=== PATIENT | male | born 1935 | race Caucasian/White ===

== ENCOUNTER → 2016-04-30 | Outpatient (CLI) | payer OTHER, BC ==
[~2016-04-30] MED LIST: ACET-1256 PO; ACET-1311 PO; ANT25 PO; ASPI-435 PO; CARB25TA16 PO; CHOL1000 PO; CHOL100010 PO; CPR500 PO; CYAN100048 PO; DOCU-94 PO; DUTA1CAP3 PO; ENOX40IN SQ; FERRTAB18 PO; FLM4 PO; FLR/1 PO; FLR1 PO; IBUP-103 PO; IRON SUPPLEMENT PO; LPT/20 PO; LSN5 PO; MOML PO; MULT-845 PEG; OMEP10CA2 PO; OMEP20TA PO; PANT1TAB48 PO; POLY335019 PO; SENN-61 PO; SNM/25100 PO; SPRIN/30 INH; TIOTCAP INH; UMEC1INH INH
[2016-05-03 14:26] LABS: ALBUMIN 4.2 G/DL (3.8-4.8)
== END | disposition home or self-care (01) ==
LOC: C.LAB 14:56
PROVIDERS: ATTEND Psychiatry & Neurology Neurology
DX: G62.9 Polyneuropathy, unspecified (principal)

== ENCOUNTER 2016-07-07 16:33 | Inpatient (IN) | payer OTHER, BC ==
[~2016-07-07] VITALS: Ht 177.8 cm; Wt 93.0 kg
[~2016-07-07 16:33] MED LIST changes: -ACET-1256 PO; -CARB25TA16 PO; -CHOL1000 PO; -CPR500 PO; -DUTA1CAP3 PO; -ENOX40IN SQ; -FLR/1 PO; -IBUP-103 PO; -LPT/20 PO; -LSN5 PO; -MOML PO; -MULT-845 PEG; -OMEP20TA PO; -PANT1TAB48 PO; -POLY335019 PO; -SNM/25100 PO; -SPRIN/30 INH; -UMEC1INH INH
--- NOTE | 2016-07-07 17:06 | EMERGENCY ROOM VISIT NOTE ---
History Report prepared by [place]: Shira Orozco Under the Supervision of: Dr. Yovanny Hidalgo D.O. First contact with patient: 16:54 Chief Complaint: WEAKNESS Stated Complaint: BREATHING DIFFICULTY/SHAKES Nursing Triage Summary: Patient arrived via EMS from home. Patient states was at home and was having increasing weakness with SOB from an illness that started a few days ago. Patient denies chest pain and N/V/D. History of Present Illness The patient is an 80 year old male who presents to the Emergency Room with complaints of worsening breathing difficulty. He is accompanied by family and was brought to the ED via EMS. The patient's family reports they found him "yelling hello? hello?" around 1500 this afternoon and states he "seemed out of it" and "could not move on his own". His daughter states he suffers from chronic vertigo and has become increasingly weak recently. His son states he seemed fine around 1200 today when he ate lunch. His family denies any recent loss of consciousness or head injuries. The patient denies any recent chest pain , nausea or vomiting. His daughter thinks he "feels warm" but is not sure if he is running a fever. She reports she had the flu last week but has finished her course of antibiotics. The patient denies any recent cough or cold symptoms. 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 A total of 10 systems reviewed and were otherwise negative. Past Medical & Surgical Medical Problems: (1) Altered mental status (2) BPH (benign prostatic hyperplasia) (3) Bronchitis (4) Cough with hemoptysis (5) Heart disease (6) HTN (hypertension) Family History Diabetes mellitus Hypertension Social History Smoking Status: Former Smoker Alcohol Use: none Drug Use: none Marital Status: Housing Status: lives with family Occupation Status: retired Current/Historical Medications Scheduled Aspirin (Aspirin 81), 81 MG PO QAM Cholecalciferol (Vitamin D3), 1 TAB PO DAILY Cyanocobalamin (Vitamin B-12), 1,000 MCG PO DAILY Docusate Sodium (Colace), 100 MG PO DAILY Dutasteride (Dutasteride), 1 TAB PO DAILY Iron-Vitamin C (Vitron-C), 1 TAB PO DAILY Omeprazole (Omeprazole), 1 TAB PO DAILY Senna (Senokot), 8.6 MG PO DAILY Tamsulosin HCl (Tamsulosin HCl), 0.4 MG PO DAILY Tiotropium [place] (Spiriva Handihaler), 1 CAP INH DAILY Scheduled PRN Acetaminophen (Tylenol), 325 MG PO BID PRN for Pain Allergies Coded Allergies: No Known Allergies (Unverified , 07/07/16) Physical Exam Vital Signs Date Time Temp Pulse Resp B/P Pulse Ox O2 Delivery O2 Flow Rate FiO2 07/07/16 19:31 80 20 125/66 97 Nasal Cannula 2.0 07/07/16 18:39 84 21 135/78 98 Room Air 07/07/16 17:39 89 22 95 Room Air 07/07/16 17:00 96 07/07/16 16:47 37.1 101 16 159/86 92 Room Air 07/07/16 16:47 97 Nasal Cannula 2.0 Physical Exam GENERAL: Patient is listless, but non-anxious appearing, falls asleep easily. EYES: The conjunctivae are clear. Mild ptosis of right eye, PERRL, EOMI. EARS, NOSE, MOUTH AND THROAT: The nose is without any evidence of any deformity. Mucous membranes are moist tongue is midline NECK: The neck is nontender and supple. RESPIRATORY: Lung sounds diminished at both bases, no tachypnea or conversational dyspnea noted. CARDIOVASCULAR: Regular rate and rhythm noted to auscultation, systolic murmur appreciated. GASTROINTESTINAL: The abdomen is soft. Bowel sounds are present in all quadrants. Abdomen is nontender MUSCULOSKELETAL/EXTREMITIES: There is no evidence of gross deformity full range of motion is noted in the hips and shoulders SKIN: Pedal edema bilaterally, no erythema or signs of cellulitis. There is no obvious evidence of any rash. NEUROLOGIC: Patient is oriented to person, place and situation. Strength is symmetric but diminished bilaterally. Medical Decision & Procedures ER Provider Diagnostic Interpretation: This X-Ray was reviewed and interpreted by myself and the radiologist. CHEST ONE VIEW PORTABLE IMPRESSION: 1. Stable mild cardiomegaly. 2. Mild interstitial thickening which is likely chronic. Electronically signed by: Frantz Walters M.D. 07/07/2016 5:[address] scan was reviewed and interpreted by the radiologist and reviewed by myself. HEAD CT NONCONTRAST Impression: No acute intracranial abnormality. Trace fluid within the right maxillary sinus. Electronically signed by: Frantz Walters M.D. 07/07/2016 6:29 PM Laboratory Results 07/07/16 17:20 Red Blood Count 4.61, Mean Corpuscular Volume 85.7, Mean Corpuscular Hemoglobin 28.6, Mean Corpuscular Hemoglobin Concent 33.4, Mean Platelet Volume 9.9, Neutrophils (%) (Auto) 93.9, Lymphocytes (%) (Auto) 2.2, Monocytes (%) (Auto) 3.2, Eosinophils (%) (Auto) 0.5, Basophils (%) (Auto) 0.1, Neutrophils # (Auto) 12.88, Lymphocytes # (Auto) 0.30, Monocytes # (Auto) 0.44, Eosinophils # (Auto) 0.07, Basophils # (Auto) 0.02 07/07/16 17:20 Test 07/07/16 17:20 07/07/16 17:24 07/07/16 17:25 07/07/16 17:30 White Blood Count 13.73 K/uL (4.8-10.8) Red Blood Count 4.61 M/uL (4.7-6.1) Hemoglobin 13.2 g/dL (14.0-18.0) Hematocrit 39.5 % (42-52) Mean Corpuscular Volume 85.7 fL (80-100) Mean Corpuscular Hemoglobin 28.6 pg (25-34) Mean Corpuscular Hemoglobin Concent 33.4 g/dl (32-36) Platelet Count 246 K/uL (130-400) Mean Platelet Volume 9.9 fL (7.4-10.4) Neutrophils (%) (Auto) 93.9 % Lymphocytes (%) (Auto) 2.2 % Monocytes (%) (Auto) 3.2 % Eosinophils (%) (Auto) 0.5 % Basophils (%) (Auto) 0.1 % Neutrophils # (Auto) 12.88 K/uL (1.4-6.5) Lymphocytes # (Auto) 0.30 K/uL (1.2-3.4) Monocytes # (Auto) 0.44 K/uL (0.11-0.59) Eosinophils # (Auto) 0.07 K/uL (0-0.5) Basophils # (Auto) 0.02 K/uL (0-0.2) RDW Standard Deviation 47.3 fL (36.4-46.3) RDW Coefficient of Variation 15.0 % (11.5-14.5) Immature Granulocyte % (Auto) 0.1 % Immature Granulocyte # (Auto) 0.02 K/uL (0.00-0.02) Erythrocyte Sedimentation Rate 9 mm/hr (0-14) Prothrombin Time 10.9 SECONDS (9.0-12.0) Prothromb Time International Ratio 1.0 (0.9-1.1) Activated Partial Thromboplast Time 25.6 SECONDS (21.0-31.0) Partial Thromboplastin Ratio 1.0 Anion Gap 10.0 mmol/L (3-11) Est Creatinine Clear Calc Drug Dose 68.0 ml/min Estimated GFR () 85.0 Estimated GFR (Non- 73.3 BUN/Creatinine Ratio 24.4 (10-20) Calcium Level 8.6 mg/dl (8.5-10.1) Phosphorus Level 1.7 mg/dl (2.5-4.9) Magnesium Level 2.2 mg/dl (1.8-2.4) Total Bilirubin 0.5 mg/dl (0.2-1) Aspartate Amino Transf (AST/SGOT) 24 U/L (15-37) Alanine Aminotransferase (ALT/SGPT) 25 U/L (12-78) Alkaline Phosphatase 88 U/L (45-117) Total Creatine Kinase 150 U/L (39-308) Creatine Kinase MB 2.7 ng/ml (0.5-3.6) Creatine Kinase MB Ratio 1.8 (0-3.0) Troponin I < 0.015 ng/ml (0-0.045) C-Reactive Protein < 0.29 mg/dl (0-0.29) Pro-B-Type Natriuretic Peptide 142 pg/ml (0-1800) Total Protein 7.2 gm/dl (6.4-8.2) Albumin 3.9 gm/dl (3.4-5.0) Globulin 3.3 gm/dl (2.5-4.0) Albumin/Globulin Ratio 1.2 (0.9-2) Lipase 86 U/L (73-393) Bedside Lactic Acid Venous 1.23 mmol/L (0.90-1.70) Venous Blood pH 7.47 (7.36-7.41) Venous Blood Partial Pressure CO2 34 mmHg (38.0-50.0) Venous Blood Partial Pressure O2 56 mmHg Venous Blood HCO3 24 mmol/L Venous Blood Oxygen Saturation 90.4 % Venous Blood Base Excess 1.0 mmol/L Urine Color YELLOW Urine Appearance CLOUDY (CLEAR) Urine pH 6.5 (4.5-7.5) Urine Specific [place] 1.013 (1.000-1.030) Urine Protein NEG (NEG) Urine Glucose (UA) NEG (NEG) Urine Ketones NEG (NEG) Urine Occult Blood NEG (NEG) Urine Nitrite POS (NEG) Urine Bilirubin NEG (NEG) Urine Urobilinogen NEG (NEG) Urine Leukocyte Esterase MODERATE (NEG) Urine WBC (Auto) >30 /hpf (0-5) Urine RBC (Auto) 0-4 /hpf (0-4) Urine Hyaline Casts (Auto) 1-5 /lpf (0-5) Urine Epithelial Cells (Auto) 0-5 /lpf (0-5) Urine Bacteria (Auto) 4+ (NEG) Laboratory results per my review. Medications Administered Medications (Trade) Dose Ordered Sig/Humberto Route Start Time Stop Time Status Last Admin Dose Admin Levofloxacin (Levaquin / D5W) 750 mg NOW ONCE IV 07/07/16 18:00 07/07/16 18:01 DC 07/07/16 18:35 750 MG ECG Indication: weakness Rate (beats per minute): 90 Rhythm: normal sinus (normal sinus rhythm) Findings: LBBB, other (no PVC) Comparison ECG Date: LBBB is new when compared to EKG from Feb 22, 2016 ED Course 165: The patient was evaluated in room B3. A complete history and physical examination were performed. 1800: Levaquin 750 mg IV. 1904: I reevaluated the patient. He is resting comfortably. I discussed my plan that he remain in the hospital for further evaluation and management and they verbalized complete understanding and agreement. 2030: I discussed the patient's case with Dr. Pérez, [facility] Hospitalist. The patient will be further evaluated. Medical Decision Prior records/ancillary studies reviewed and summarized above. Nursing notes reviewed. Additional history obtained from EMS. Differential diagnosis: Etiologies such as metabolic, infection, hypo/hyperglycemia, electrolyte abnormalities, cardiac sources, intracerebral event, toxicologic, neurologic, as well as others were entertained. The patient is an 80-year-old male who presented to the emergency department for altered mental status. The patient had an episode of shaking prior to arrival. I do feel that this may represent Rigors and given the patient's current urinary tract infection this could represent early bacteremia and early sepsis from a urinary source. For this reason the patient was treated with IV antibiotics. The patient was reevaluated multiple times. I discussed the patient 's laboratory and radiographic studies with him and his family members. I also discussed his case with the on-call [facility] [address] hospitalist group. They have agreed to evaluate the patient in the emergency department for further management and disposition. Consults Time Called: 1853 Consulting Physician: Dr. Pérez [facility] Hospitalist Returned Call: [phone] I discussed the patient's case with Dr. Pérez, [facility] Hospitalist. The patient will be further evaluated. Impression Primary Impression: UTI (urinary tract infection) Additional Impressions: Altered mental status Elevated WBCs Scribe Attestation The scribe's documentation has been prepared under my direction and personally reviewed by me in its entirety. I confirm that the note above accurately reflects all work, treatment, procedures, and medical decision making performed by me. Departure Information Dispostion Being Evaluated By Hospitalist Referrals RV. Garcia MD (PCP) Patient Instructions My [facility] Health Problem Qualifiers Primary Impression: UTI (urinary tract infection) Urinary tract infection type: acute pyelonephritis Qualified Codes: N10 - Acute pyelonephritis Additional Impressions: Altered mental status Altered mental status type: disorientation Qualified Codes: R41.0 - Disorientation, unspecified Elevated WBCs Leukocytosis type: unspecified Qualified Codes: D72.829 - Elevated white blood cell count, unspecified
--- NOTE | 2016-07-07 17:14 | DIAGNOSTIC IMAGING REPORT ---
CHEST ONE VIEW PORTABLE HISTORY: Sepsis COMPARISON: Chest 02/20/2016. . FINDINGS: Mild interstitial thickening which is likely chronic. No focal lung consolidations to suggest pneumonia. No evidence for pulmonary edema. No pleural effusions. No pneumothorax. The heart remains mildly enlarged. Small scarlike density within the right upper lung zone IMPRESSION: 1. Stable mild cardiomegaly. 2. Mild interstitial thickening which is likely chronic. Electronically signed by: Frantz Walters M.D. 07/07/2016 5:13 PM Dictated Date/Time: 07/07/2016 5:11 PM
[2016-07-07 17:37] LABS: BASO % 0.1 %; BASO ABS # 0.02 K/uL (0-0.2); COMPLETE YES; EOS % 0.5 %; HEMATOCRIT 39.5 % (42-52); IG% 0.1 %; LYMPH % 2.2 %; MEAN CELL VOLUME 85.7 fL (80-100); MEAN CORPUSCULAR HEMOGLOBIN 28.6 pg (25-34); MEAN CORPUSCULAR HGB CONC 33.4 g/dl (32-36); MEAN PLATELET VOLUME 9.9 fL (7.4-10.4); MONO % 3.2 %; NEUT % 93.9 %; PLATELET COUNT 246 K/uL (130-400); RED BLOOD COUNT 4.61 M/uL (4.7-6.1); WHITE BLOOD COUNT 13.73 K/uL (4.8-10.8)
[2016-07-07 17:41] LABS: VEN BLD GAS O2 SATURATION 90.4 %
[2016-07-07 17:46] LABS: PROTHROMBIN TIME (PATIENT) 10.9 SECONDS (9.0-12.0)
[2016-07-07 17:47] LABS: URINE APPEARANCE CLOUDY (CLEAR); URINE BILIRUBIN NEG (NEG); URINE COLOR YELLOW; URINE EPITHELIAL CELL AUTO 0-5 /lpf (0-5); URINE NITRITE POS (NEG); URINE PH 6.5 (4.5-7.5); URINE SPECIFIC GRAVITY 1.013 (1.000-1.030); UROBILINOGEN NEG (NEG); ZZUR CULT IF INDIC CLEAN CATCH YES
[2016-07-07 17:49] LABS: MANUAL MICROSCOPIC REQUIRED? NO; REVIEW REQ? NO
[2016-07-07 17:56] LABS: ALT/SGPT 25 U/L (12-78); BLOOD UREA NITROGEN 23 mg/dl (7-18); BUN/CREATININE RATIO 24.4 (10-20); C-REACTIVE PROTEIN < 0.29 mg/dl (0-0.29); CALCIUM 8.6 mg/dl (8.5-10.1); CARBON DIOXIDE 23 mmol/L (21-32); CHLORIDE 107 mmol/L (98-107); CREATININE 0.96 mg/dl (0.60-1.40); GLUCOSE 100 mg/dl (70-99); MAGNESIUM 2.2 mg/dl (1.8-2.4); POTASSIUM 3.6 mmol/L (3.5-5.1); SODIUM 140 mmol/L (136-145)
[2016-07-07 18:00] LABS: ALB/GLOB RATIO 1.2 (0.9-2); ALKALINE PHOSPHATASE 88 U/L (45-117); AST/SGOT 24 U/L (15-37); CKMB/CK RATIO 1.8 (0-3.0); PHOSPHORUS 1.7 mg/dl (2.5-4.9)
[2016-07-07] MEDS ORDERED: LEVAQUIN 750MG / 150ML D5W IV ONE (18:00)
[2016-07-07] MEDS ORDERED: SPRIN/30 INH (18:18)
[2016-07-07] MEDS ORDERED: OMEP20TA PO (18:18)
[2016-07-07] MEDS ORDERED: FLR/1 PO (18:18)
[2016-07-07] MEDS ORDERED: CHOL1000 PO (18:18)
[2016-07-07] MEDS ORDERED: DUTA1CAP3 PO (18:19)
--- NOTE | 2016-07-07 18:30 | DIAGNOSTIC IMAGING REPORT ---
HEAD CT NONCONTRAST CT DOSE: 906.34 mGycm HISTORY: dizzy TECHNIQUE: Multiaxial CT images of the head were performed without the use of intravenous contrast. Automated exposure control was utilized for this study. Comparison: Head CT 02/20/2016. Findings: Trace fluid within the right maxillary sinus. The calvarium and skull base are intact. There is no mass, hematoma, midline shift, acute infarct. White matter hypodensity is nonspecific but suggestive of microvascular ischemic change. The ventricles and sulci demonstrate mild age-related involutional changes. Impression: No acute intracranial abnormality. Trace fluid within the right maxillary sinus. Electronically signed by: Frantz Walters M.D. 07/07/2016 6:29 PM Dictated Date/Time: 07/07/2016 6:25 PM
[2016-07-07] MEDS ORDERED: ONDANSETRON INJ 2 MG/ML 2 ML VIAL IV PRN (20:00)
[2016-07-07] MEDS ORDERED: MAGNESIUM HYDROXIDE SUSP 30 ML UDC PO PRN (20:00)
[2016-07-07] MEDS ORDERED: POLYETHYLENE (MIRALAX) 17 GM PACK PO PRN (20:00)
[2016-07-07] MEDS ORDERED: ACETAMINOPHEN 325 MG TAB PO PRN (20:00)
[2016-07-07] MEDS ORDERED: ALUMINUM/MAGNESIUM/SIMETH (MAALOX MAX) 30 ML UDC PO PRN (20:00)
--- NOTE | 2016-07-07 20:22 | History and Physical ---
History & Physical Date & Time of Service: Jul 07, 2016 at 20:05 Chief Complaint: Breathing Difficulty/Shakes Primary Care Physician: RV. Garcia MD History of Present Illness Source: patient, family 80 y/o M Hx mild COPD, BPH, Multi System Atrophy (tremors, falls, bladder dysfunction). Was in his normal state of health earlier in afternoon. The developed acute fever, rigors, weakness and confusion. He was unable to mobilize without assistance and family noted urinary frequency over the last few days. Similar symptoms have occurred previously with infection. The pt is not able to contribute significantly to the HP - information is obtained by family at bedside. A UTI was confirmed in the ER. 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, tremors, incontinence, postural hypotension (3) HTN (hypertension) Status: Chronic 4) Mild COPD Family History Diabetes mellitus Hypertension Social History Smoking Status: Former Smoker Drug Use: none Marital Status: Housing status: lives with family Occupational Status: retired Immunizations Tetanus Immunization Date: Sep 22, 2013 Multi-Drug Resistant Organisms History of MDRO: No Allergies Coded Allergies: No Known Allergies (Unverified , 07/07/16) Home Medications Scheduled Aspirin (Aspirin 81), 81 MG PO QAM Cholecalciferol (Vitamin D3), 1 TAB PO DAILY Cyanocobalamin (Vitamin B-12), 1,000 MCG PO DAILY Docusate Sodium (Colace), 100 MG PO DAILY Dutasteride (Dutasteride), 1 TAB PO DAILY Iron-Vitamin C (Vitron-C), 1 TAB PO DAILY Omeprazole (Omeprazole), 1 TAB PO DAILY Senna (Senokot), 8.6 MG PO DAILY Tamsulosin HCl (Tamsulosin HCl), 0.4 MG PO DAILY Tiotropium [place] (Spiriva Handihaler), 1 CAP INH DAILY Scheduled PRN Acetaminophen (Tylenol), 325 MG PO BID PRN for Pain Review of Systems Constitutional: + chills, + fever, + problem reported (rigors) Eyes: No eye pain, No worsening of vision ENT: No hearing loss, No nasal symptoms, No unusual epistaxis Respiratory: No cough, No shortness of breath, No sputum, No wheezing Cardiovascular: No PND, No chest pain, No orthopnea Abdomen: No diarrhea, No nausea, No pain, No vomiting Musculoskeletal: No joint pain, No muscle pain Genitourinary - Male: + dysuria, + urinary frequency, No hematuria Neurologic: + problem reported (chronic tremors and unsteady gait), + weakness , No memory loss, No paralysis Psychiatric: No depression symptoms Endocrine: + fatigue Hematologic / Lymphatic: No abnormal bleeding/bruising Integumentary: No rash Allergic / Immunologic: No environmental allergies Physical Exam Vital Signs Date Time Temp Pulse Resp B/P Pulse Ox O2 Delivery O2 Flow Rate FiO2 07/07/16 18:39 84 21 135/78 98 Room Air 07/07/16 17:39 89 22 95 Room Air 07/07/16 17:00 96 07/07/16 16:47 37.1 101 16 159/86 92 Room Air 07/07/16 16:47 97 Nasal Cannula 2.0 General Appearance: + pertinent finding (Lethargic appearing elderly male - follows commands with difficulty due to weakness) Head: normocephalic, atraumatic Eyes: normal inspection, EOMI ENT: normal ENT inspection, pharynx normal Neck: supple, no JVD Respiratory/Chest: chest non-tender, lungs clear, normal breath sounds Cardiovascular: regular rate, rhythm, no edema, no gallop, no JVD Abdomen/GI: normal bowel sounds, non tender, soft Back: normal inspection, no CVA tenderness Extremities/Musculoskelatal: normal inspection, no calf tenderness, normal capillary refill, no pedal edema, normal range of motion 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 II-XII nml as tested, alert, + pertinent finding ( Globally weak - b/l tremors - can follow commands, answer questions and coordinate moveemnts if given time - fully oriented on admission) Skin: normal color, warm/dry, no rash Diagnostics Laboratory Results Results Past 24 Hours Test 07/07/16 17:20 07/07/16 17:24 07/07/16 17:25 07/07/16 17:30 Range/Units White Blood Count 13.73 4.8-10.8 K/uL Red Blood Count 4.61 4.7-6.1 M/uL Hemoglobin 13.2 14.0-18.0 g/dL Hematocrit 39.5 42-52 % Mean Corpuscular Volume 85.7 80-100 fL Mean Corpuscular Hemoglobin 28.6 25-34 pg Mean Corpuscular Hemoglobin Concent 33.4 32-36 g/dl Platelet Count 246 130-400 K/uL Mean Platelet Volume 9.9 7.4-10.4 fL Neutrophils (%) (Auto) 93.9 % Lymphocytes (%) (Auto) 2.2 % Monocytes (%) (Auto) 3.2 % Eosinophils (%) (Auto) 0.5 % Basophils (%) (Auto) 0.1 % Neutrophils # (Auto) 12.88 1.4-6.5 K/uL Lymphocytes # (Auto) 0.30 1.2-3.4 K/uL Monocytes # (Auto) 0.44 0.11-0.59 K/uL Eosinophils # (Auto) 0.07 0-0.5 K/uL Basophils # (Auto) 0.02 0-0.2 K/uL RDW Standard Deviation 47.3 36.4-46.3 fL RDW Coefficient of Variation 15.0 11.5-14.5 % Immature Granulocyte % (Auto) 0.1 % Immature Granulocyte # (Auto) 0.02 0.00-0.02 K/uL Erythrocyte Sedimentation Rate 9 0-14 mm/hr Prothrombin Time 10.9 9.0-12.0 SECONDS Prothromb Time International Ratio 1.0 0.9-1.1 Activated Partial Thromboplast Time 25.6 21.0-31.0 SECONDS Partial Thromboplastin Ratio 1.0 Sodium Level 140 136-145 mmol/L Potassium Level 3.6 3.5-5.1 mmol/L Chloride Level 107 98-107 mmol/L Carbon Dioxide Level 23 21-32 mmol/L Anion Gap 10.0 3-11 mmol/L Blood Urea Nitrogen 23 7-18 mg/dl Creatinine 0.96 0.60-1.40 mg/dl Est Creatinine Clear Calc Drug Dose 68.0 ml/min Estimated GFR () 85.0 Estimated GFR (Non- 73.3 BUN/Creatinine Ratio 24.4 10-20 Random Glucose 100 70-99 mg/dl Calcium Level 8.6 8.5-10.1 mg/dl Phosphorus Level 1.7 2.5-4.9 mg/dl Magnesium Level 2.2 1.8-2.4 mg/dl Total Bilirubin 0.5 0.2-1 mg/dl Aspartate Amino Transf (AST/SGOT) 24 15-37 U/L Alanine Aminotransferase (ALT/SGPT) 25 12-78 U/L Alkaline Phosphatase 88 45-117 U/L Total Creatine Kinase 150 39-308 U/L Creatine Kinase MB 2.7 0.5-3.6 ng/ml Creatine Kinase MB Ratio 1.8 0-3.0 Troponin I < 0.015 0-0.045 ng/ml C-Reactive Protein < 0.29 0-0.29 mg/dl Pro-B-Type Natriuretic Peptide 142 0-1800 pg/ml Total Protein 7.2 6.4-8.2 gm/dl Albumin 3.9 3.4-5.0 gm/dl Globulin 3.3 2.5-4.0 gm/dl Albumin/Globulin Ratio 1.2 0.9-2 Lipase 86 73-393 U/L Bedside Lactic Acid Venous 1.23 0.90-1.70 mmol/L Venous Blood pH 7.47 7.36-7.41 Venous Blood Partial Pressure CO2 34 38.0-50.0 mmHg Venous Blood Partial Pressure O2 56 mmHg Venous Blood HCO3 24 mmol/L Venous Blood Oxygen Saturation 90.4 % Venous Blood Base Excess 1.0 mmol/L Urine Color YELLOW Urine Appearance CLOUDY CLEAR Urine pH 6.5 4.5-7.5 Urine Specific [place] 1.013 1.000-1.030 Urine Protein NEG NEG Urine Glucose (UA) NEG NEG Urine Ketones NEG NEG Urine Occult Blood NEG NEG Urine Nitrite POS NEG Urine Bilirubin NEG NEG Urine Urobilinogen NEG NEG Urine Leukocyte Esterase MODERATE NEG Urine WBC (Auto) >30 0-5 /hpf Urine RBC (Auto) 0-4 0-4 /hpf Urine Hyaline Casts (Auto) 1-5 0-5 /lpf Urine Epithelial Cells (Auto) 0-5 0-5 /lpf Urine Bacteria (Auto) 4+ NEG Microbiology Results 07/07/16 Blood Culture, Received Pending 07/07/16 Blood Culture, Received Pending 07/07/16 Urine Culture, Received Pending Diagnostic Radiology No acute intracranial abnormality. Trace fluid within the right maxillary sinus. Impression Assessment and Plan 80 y/o M Hx mild COPD, BPH, Multi System Atrophy (tremors, falls, bladder dysfunction). Was in his normal state of health earlier in afternoon. The developed acute fever, rigors, weakness and confusion. He was unable to mobilize without assistance and family noted urinary frequency over the last few days. Similar symptoms have occurred previously with infection. The pt is not able to contribute significantly to the HP - information is obtained by family at bedside. A UTI was confirmed in the ER. 1) UTI - weakness / rigors / AMS - oriented and afebril on admission - provided with Levaquin and IVF pending culture results - Tylenol PRN 2) MSA - Fall precautions - keep head of bed elevated per daughter - PT/OT for AM 3) COPD - no active exacerbation - Spiriva daily 4) GERD - cont Omeprazole Full code - SCDS only considering fall risk Total time for this admit including review of labs, meds, imaging, records - discussion with pt/family and ER attending - 35 min Level of Care Med/Surg Resuscitation Status FULL RESUSCITATION VTE Prophylaxis VTE Risk Assessment Done? Y/N: Yes Risk Level: Moderate Given or contraindicated: SCD's
[2016-07-07 21:43] VITALS: BP 117/68; PULSE 73; TEMP 37.1; O2SAT 97; Ht 177.8 cm; Wt 93.0 kg
[2016-07-07] MEDS ORDERED: LEVOFLOXACIN CONSULT ACTIVE PRN (22:00)
[2016-07-07] MEDS ORDERED: D5NSS + 20MEQ KCL 1,000 ML IV SCH (22:00)
[2016-07-07 22:03] VITALS: BP 153/78; TEMP 36.8; O2SAT 97
[2016-07-08] VITALS (7 sets, daily range): BP systolic 143–180; BP diastolic 75–88; PULSE 61–72; TEMP 36.8–37.8; O2SAT 97–99
[2016-07-08 06:15] LABS: HEMATOCRIT 37.1 % (42-52); MEAN CELL VOLUME 87.1 fL (80-100); MEAN CORPUSCULAR HEMOGLOBIN 28.6 pg (25-34); MEAN CORPUSCULAR HGB CONC 32.9 g/dl (32-36); MEAN PLATELET VOLUME 9.8 fL (7.4-10.4); PLATELET COUNT 215 K/uL (130-400); RED BLOOD COUNT 4.26 M/uL (4.7-6.1); WHITE BLOOD COUNT 12.56 K/uL (4.8-10.8)
[2016-07-08 06:50] LABS: BUN/CREATININE RATIO 21.3 (10-20); CALCIUM 8.5 mg/dl (8.5-10.1); MAGNESIUM 2.3 mg/dl (1.8-2.4); POTASSIUM 3.9 mmol/L (3.5-5.1)
[2016-07-08] MEDS: AVODART-ORDER AWAITING ACTION SCH ×4 (08:00→23:40)
[2016-07-08] MEDS: TIOTROPIUM BROMIDE 5 PUFF/90 MCG INH INH SCH (08:05)
[2016-07-08] MEDS: TAMSULOSIN HCL 0.4 MG CAP PO SCH (08:06)
[2016-07-08] MEDS: SENNA 8.6 MG TAB PO SCH (08:06)
[2016-07-08] MEDS: CYANOCOBALAMIN 500 MCG TAB (VIT B-12) PO SCH (08:06)
[2016-07-08] MEDS: CHOLECALCIFEROL 1000 INTER.UNIT TAB PO SCH (08:06)
[2016-07-08] MEDS: PANTOprazole SOD 40 MG TAB PO SCH (08:07)
[2016-07-08] MEDS: ASPIRIN 81 MG ECTAB PO SCH (08:07)
[2016-07-08] MEDS: DOCUSATE SODIUM 100 MG CAP PO SCH (08:07)
[2016-07-08] MEDS: CEFEPIME IV 2,000 MG in DEXTROSE 5% 100ML 100 ML IV SCH ×2 (08:56→20:32)
--- NOTE | 2016-07-08 11:51 | Progress Note ---
Subjective Date of Service: Jul 08, 2016. (Natalya Pereira PA-C) Subjective Pt evaluation today including: conversation w/ patient, physical exam, chart review, lab review, review of studies, review of inpatient medication list Patient seen and evaluated. Blood Cx x 2 positive for Gram Neg Bacilli and Urine Cx with E. coli. Patient is currently alert and oriented x 3 but is extremely PILOT STATION and forgetful at times. He currently denies any complaints. He denies fever/chills but is in bed without covers on and febrile this AM on vitals. (Natalya Pereira PA-C) Problem List Medical Problems: (1) Dysarthria Status: Acute (2) Elevated WBCs Status: Acute (3) Sepsis Status: Acute (4) UTI (urinary tract infection) Status: Acute (Natalya Pereira PA-C) Review of Systems Constitutional: No chills, No fever Respiratory: No shortness of breath Cardiac: No chest pain Abdomen: No constipation, No diarrhea, No nausea, No pain, No vomiting Male : No dysuria Skin: No rash (Natalya Pereira PA-C) Medications Current Inpatient Medications Medications (Trade) Dose Ordered Sig/Humberto Route Start Time Stop Time Status Last Admin Dose Admin Aspirin (Ecotrin Tab) 81 mg QAM PO 07/08/16 08:00 08/07/16 08:59 07/08/16 08:07 81 MG Cholecalciferol (Vitamin D Tab) 1,000 inter.unit DAILY PO 07/08/16 08:00 08/07/16 08:59 07/08/16 08:06 1,000 INTER.UNIT Docusate Sodium (coLACE CAP) 100 mg DAILY PO 07/08/16 08:00 08/07/16 08:59 07/08/16 08:07 100 MG Senna (Senokot Tab) 8.6 mg DAILY PO 07/08/16 08:00 08/07/16 08:59 07/08/16 08:06 8.6 MG Tamsulosin HCl (Flomax Cap) 0.4 mg DAILY PO 07/08/16 08:00 08/07/16 08:59 07/08/16 08:06 0.4 MG Tiotropium [place] (Spiriva Handihaler Inhaler) 1 puff DAILY INH 07/08/16 08:00 08/07/16 08:59 07/08/16 08:05 1 PUFF Cyanocobalamin (Vitamin B-12 Tab) 1,000 mcg DAILY PO 07/08/16 08:00 08/07/16 08:59 07/08/16 08:06 1,000 MCG Miscellaneous Information (Order Awaiting Action) 1 ea QS N/A 07/08/16 00:00 08/07/16 00:00 Pantoprazole Sodium (Protonix Tab) 40 mg QAM PO 07/08/16 08:00 08/07/16 08:59 07/08/16 08:07 40 MG Acetaminophen (Tylenol Tab) 650 mg Q4H PRN PO 07/07/16 20:00 08/06/16 19:59 07/08/16 08:08 650 MG Al Hydrox/Mg Hydrox/Simethicone (Maalox Max Susp) 15 ml Q4H PRN PO 07/07/16 20:00 08/06/16 19:59 Magnesium Hydroxide (Milk Of Magnesia Susp) 30 ml Q6H PRN PO 07/07/16 20:00 08/06/16 19:59 Polyethylene (Miralax Powder Packet) 17 gm DAILY PRN PO 07/07/16 20:00 08/06/16 19:59 Ondansetron HCl 4 mg 4 mg Q6H PRN IV 07/07/16 20:00 08/06/16 19:59 Cefepime HCl/ Dextrose (Maxipime IV/D5 100ml) 112.5 ml @ 200 mls/hr Q12 IV 07/08/16 09:00 07/22/16 08:59 07/08/16 08:56 200 MLS/HR (Natalya Pereira, JUNEC) Objective Vital Signs Date Time Temp Pulse Resp B/P Pulse Ox O2 Delivery O2 Flow Rate FiO2 07/08/16 09:00 37.1 07/08/16 08:42 37.5 07/08/16 08:00 98 Nasal Cannula 1.0 07/08/16 07:17 37.8 70 18 155/79 97 Nasal Cannula 1.0 07/08/16 00:02 37.1 72 16 143/75 99 1.5 07/08/16 00:00 Nasal Cannula 1.0 07/07/16 22:03 36.8 18 153/78 97 Room Air 07/07/16 21:43 37.1 73 20 117/68 97 Nasal Cannula 2.0 07/07/16 21:09 73 20 117/68 98 Nasal Cannula 2.0 07/07/16 20:18 79 12 135/75 96 Nasal Cannula 2.0 07/07/16 20:14 79 07/07/16 19:31 80 20 125/66 97 Nasal Cannula 2.0 07/07/16 18:39 84 21 135/78 98 Room Air 07/07/16 17:39 89 22 95 Room Air 07/07/16 17:00 96 07/07/16 16:47 37.1 101 16 159/86 92 Room Air 07/07/16 16:47 97 Nasal Cannula 2.0 (Natalya Pereira, PA-C) Physical Exam General Appearance: WD/WN, no apparent distress Eyes: sclerae normal ENT: + pertinent finding (PILOT STATION (chronic)) Neck: supple, no JVD, trachea midline Respiratory/Chest: lungs clear, no respiratory distress, no accessory muscle use, + decreased breath sounds Cardiovascular: regular rate, rhythm, no gallop, no murmur, + systolic murmur Abdomen: normal bowel sounds, non tender, soft Extremities: no pedal edema, no calf tenderness Neurologic/Psychiatric: alert, oriented x 3 Skin: normal color, warm/dry (Natalya Pereira, PA-C) Laboratory Results Last 24 Hours Test 07/07/16 17:20 07/07/16 17:24 07/07/16 17:25 07/07/16 17:30 White Blood Count 13.73 K/uL Red Blood Count 4.61 M/uL Hemoglobin 13.2 g/dL Hematocrit 39.5 % Mean Corpuscular Volume 85.7 fL Mean Corpuscular Hemoglobin 28.6 pg Mean Corpuscular Hemoglobin Concent 33.4 g/dl Platelet Count 246 K/uL Mean Platelet Volume 9.9 fL Neutrophils (%) (Auto) 93.9 % Lymphocytes (%) (Auto) 2.2 % Monocytes (%) (Auto) 3.2 % Eosinophils (%) (Auto) 0.5 % Basophils (%) (Auto) 0.1 % Neutrophils # (Auto) 12.88 K/uL Lymphocytes # (Auto) 0.30 K/uL Monocytes # (Auto) 0.44 K/uL Eosinophils # (Auto) 0.07 K/uL Basophils # (Auto) 0.02 K/uL RDW Standard Deviation 47.3 fL RDW Coefficient of Variation 15.0 % Immature Granulocyte % (Auto) 0.1 % Immature Granulocyte # (Auto) 0.02 K/uL Erythrocyte Sedimentation Rate 9 mm/hr Prothrombin Time 10.9 SECONDS Prothromb Time International Ratio 1.0 Activated Partial Thromboplast Time 25.6 SECONDS Partial Thromboplastin Ratio 1.0 Sodium Level 140 mmol/L Potassium Level 3.6 mmol/L Chloride Level 107 mmol/L Carbon Dioxide Level 23 mmol/L Anion Gap 10.0 mmol/L Blood Urea Nitrogen 23 mg/dl Creatinine 0.96 mg/dl Est Creatinine Clear Calc Drug Dose 68.0 ml/min Estimated GFR () 85.0 Estimated GFR (Non- 73.3 BUN/Creatinine Ratio 24.4 Random Glucose 100 mg/dl Calcium Level 8.6 mg/dl Phosphorus Level 1.7 mg/dl Magnesium Level 2.2 mg/dl Total Bilirubin 0.5 mg/dl Aspartate Amino Transf (AST/SGOT) 24 U/L Alanine Aminotransferase (ALT/SGPT) 25 U/L Alkaline Phosphatase 88 U/L Total Creatine Kinase 150 U/L Creatine Kinase MB 2.7 ng/ml Creatine Kinase MB Ratio 1.8 Troponin I < 0.015 ng/ml C-Reactive Protein < 0.29 mg/dl Pro-B-Type Natriuretic Peptide 142 pg/ml Total Protein 7.2 gm/dl Albumin 3.9 gm/dl Globulin 3.3 gm/dl Albumin/Globulin Ratio 1.2 Lipase 86 U/L Bedside Lactic Acid Venous 1.23 mmol/L Venous Blood pH 7.47 Venous Blood Partial Pressure CO2 34 mmHg Venous Blood Partial Pressure O2 56 mmHg Venous Blood HCO3 24 mmol/L Venous Blood Oxygen Saturation 90.4 % Venous Blood Base Excess 1.0 mmol/L Urine Color YELLOW Urine Appearance CLOUDY Urine pH 6.5 Urine Specific [place] 1.013 Urine Protein NEG Urine Glucose (UA) NEG Urine Ketones NEG Urine Occult Blood NEG Urine Nitrite POS Urine Bilirubin NEG Urine Urobilinogen NEG Urine Leukocyte Esterase MODERATE Urine WBC (Auto) >30 /hpf Urine RBC (Auto) 0-4 /hpf Urine Hyaline Casts (Auto) 1-5 /lpf Urine Epithelial Cells (Auto) 0-5 /lpf Urine Bacteria (Auto) 4+ Test 07/08/16 05:40 White Blood Count 12.56 K/uL Red Blood Count 4.26 M/uL Hemoglobin 12.2 g/dL Hematocrit 37.1 % Mean Corpuscular Volume 87.1 fL Mean Corpuscular Hemoglobin 28.6 pg Mean Corpuscular Hemoglobin Concent 32.9 g/dl RDW Standard Deviation 49.3 fL RDW Coefficient of Variation 15.4 % Platelet Count 215 K/uL Mean Platelet Volume 9.8 fL Sodium Level 139 mmol/L Potassium Level 3.9 mmol/L Chloride Level 107 mmol/L Carbon Dioxide Level 27 mmol/L Anion Gap 5.0 mmol/L Blood Urea Nitrogen 21 mg/dl Creatinine 1.00 mg/dl Est Creatinine Clear Calc Drug Dose 65.3 ml/min Estimated GFR () 80.9 Estimated GFR (Non- 69.8 BUN/Creatinine Ratio 21.3 Random Glucose 125 mg/dl Calcium Level 8.5 mg/dl Magnesium Level 2.3 mg/dl (Natalya Pereira, JUNEC) Assessment and Plan 80 y/o M Hx mild COPD, BPH, Multi System Atrophy (tremors, falls, bladder dysfunction). Was in his normal state of health earlier in afternoon. Positive for E. Coli UTI and Bacteremia. Sepsis: E. Coli UTI and Gram Negative Bacilli Bacteremia: - AMS resolved; noted fever this AM and some improvement in leukocytosis - Cefepime 2 g IV BID - will adjust antibiotics pending culture results COPD: Without Exacerbation: - Spiriva daily Multi-System Atrophy: - Continue fall precautions and keep head of bed elevated - PT/OT evaluations DVT Prophylaxis: - IRMA/SCDs - Will defer chemical prophylaxis due to fall risk Code Status: FULL RESUSCITATION Disposition: - PT/OT recommendations - Await Cx results (Natalya Pereira, PAJohnC) Attending Attestation: Pt seen/examined, chart reviewed, care plan d/w ELÍAS Pereira. I agree w/ the maya components of her documentation. Pt feeling better today. Appetite better. No voiding symptoms. denies h/o kidney stones. VSS but febrile this AM gen - flat affect mouth - MMM heart - RRR, s1, s2, 2-3/6 systolic murmur RUSB lungs - CTA b/l abd - soft, no flank tenderness ext - no edema all blood cx's + for GNR urine cx with e. coli, sens pending A/P: GNR sepsis with bacteremia - likely e. coli. source - UTI. broaden abx to cefepime until final ID/sens are back. supportive care in meantime. Neeraj GOMEZ MD (Abhishek Gomez MD)
[2016-07-08] MEDS ORDERED: LEVOFLOXACIN / D5W 500 MG in PREMIXED IN D5W 100 ML IV SCH (18:00)
[2016-07-09 06:00] LABS: HEMATOCRIT 37.6 % (42-52); MEAN CELL VOLUME 84.5 fL (80-100); MEAN CORPUSCULAR HEMOGLOBIN 28.3 pg (25-34); MEAN CORPUSCULAR HGB CONC 33.5 g/dl (32-36); MEAN PLATELET VOLUME 10.1 fL (7.4-10.4); PLATELET COUNT 193 K/uL (130-400); RED BLOOD COUNT 4.45 M/uL (4.7-6.1); WHITE BLOOD COUNT 8.57 K/uL (4.8-10.8)
[2016-07-09 06:36] LABS: BUN/CREATININE RATIO 17.2 (10-20); CALCIUM 8.3 mg/dl (8.5-10.1); MAGNESIUM 2.5 mg/dl (1.8-2.4); POTASSIUM 3.8 mmol/L (3.5-5.1)
[2016-07-09] MEDS: AVODART-ORDER AWAITING ACTION SCH ×3 (08:00→23:20)
[2016-07-09] MEDS: TIOTROPIUM BROMIDE 5 PUFF/90 MCG INH INH SCH (09:02)
[2016-07-09] MEDS: DOCUSATE SODIUM 100 MG CAP PO SCH (09:03)
[2016-07-09] MEDS: ASPIRIN 81 MG ECTAB PO SCH (09:04)
[2016-07-09] MEDS: PANTOprazole SOD 40 MG TAB PO SCH (09:04)
[2016-07-09] MEDS: TAMSULOSIN HCL 0.4 MG CAP PO SCH (09:04)
[2016-07-09] MEDS: CYANOCOBALAMIN 500 MCG TAB (VIT B-12) PO SCH (09:04)
[2016-07-09] MEDS: SENNA 8.6 MG TAB PO SCH (09:04)
[2016-07-09] MEDS: CHOLECALCIFEROL 1000 INTER.UNIT TAB PO SCH (09:05)
[2016-07-09] MEDS: CIPROFLOXACIN / D5W 400 MG in PREMIXED IN D5W 200 ML IV SCH ×2 (10:12→21:36)
[2016-07-09 11:59] VITALS: BP 146/77; PULSE 68; TEMP 36.9; O2SAT 97
--- NOTE | 2016-07-09 14:20 | Progress Note ---
Subjective Date of Service: Jul 09, 2016. (Natalya Pereira PA-C) Subjective Pt evaluation today including: conversation w/ patient, conversation w/ family , physical exam, chart review, lab review, review of studies, review of inpatient medication list Patient seen and evaluated. No acute events overnight. Daughter and son-in-law at bedside who reports patient appears at his baseline mentation. Patient reports feeling well and is thankful for a good night sleep. Patient reports a limited appetite however states this is a chronic issue. Continues to complain of double vision which has been worked up as an outpatient. Suspicion that is related to his multisystem atrophy. Urine cultures revealed pansensitive Escherichia coli. (Natalya Pereira PA-C) Problem List Medical Problems: (1) Dysarthria Status: Acute (2) Elevated WBCs Status: Acute (3) Sepsis Status: Acute (4) UTI (urinary tract infection) Status: Acute (Natalya Pereira PA-C) Review of Systems Constitutional: No chills, No fever Eyes: + diplopia (chronic), No worsening of vision Respiratory: No shortness of breath Cardiac: No chest pain Abdomen: No constipation, No diarrhea, No nausea, No pain, No vomiting Musculoskeletal: No muscle pain, No swelling Male : + urinary frequency, No dysuria Heme: No abnormal bleeding/bruising Skin: No rash (Natalya Pereira PA-C) Medications Current Inpatient Medications Medications (Trade) Dose Ordered Sig/Humberto Route Start Time Stop Time Status Last Admin Dose Admin Aspirin (Ecotrin Tab) 81 mg QAM PO 07/08/16 08:00 08/07/16 08:59 07/09/16 09:04 81 MG Cholecalciferol (Vitamin D Tab) 1,000 inter.unit DAILY PO 07/08/16 08:00 08/07/16 08:59 07/09/16 09:05 1,000 INTER.UNIT Docusate Sodium (coLACE CAP) 100 mg DAILY PO 07/08/16 08:00 08/07/16 08:59 07/09/16 09:03 100 MG Senna (Senokot Tab) 8.6 mg DAILY PO 07/08/16 08:00 08/07/16 08:59 07/09/16 09:04 8.6 MG Tamsulosin HCl (Flomax Cap) 0.4 mg DAILY PO 07/08/16 08:00 08/07/16 08:59 07/09/16 09:04 0.4 MG Tiotropium [place] (Spiriva Handihaler Inhaler) 1 puff DAILY INH 07/08/16 08:00 08/07/16 08:59 07/09/16 09:02 1 PUFF Cyanocobalamin (Vitamin B-12 Tab) 1,000 mcg DAILY PO 07/08/16 08:00 08/07/16 08:59 07/09/16 09:04 1,000 MCG Miscellaneous Information (Order Awaiting Action) 1 ea QS N/A 07/08/16 00:00 08/07/16 00:00 Pantoprazole Sodium (Protonix Tab) 40 mg QAM PO 07/08/16 08:00 08/07/16 08:59 07/09/16 09:04 40 MG Acetaminophen (Tylenol Tab) 650 mg Q4H PRN PO 07/07/16 20:00 08/06/16 19:59 07/08/16 08:08 650 MG Al Hydrox/Mg Hydrox/Simethicone (Maalox Max Susp) 15 ml Q4H PRN PO 07/07/16 20:00 08/06/16 19:59 Magnesium Hydroxide (Milk Of Magnesia Susp) 30 ml Q6H PRN PO 07/07/16 20:00 08/06/16 19:59 Polyethylene (Miralax Powder Packet) 17 gm DAILY PRN PO 07/07/16 20:00 08/06/16 19:59 Ondansetron HCl 4 mg 4 mg Q6H PRN IV 07/07/16 20:00 08/06/16 19:59 Ciprofloxacin/ Dextrose/Prmx (Cipro / D5w/ Premixed D5W) 200 ml @ 100 mls/hr Q12 IV 07/09/16 09:00 07/19/16 08:59 07/09/16 10:12 100 MLS/HR (Natalya Pereira, DAMASO) Objective Vital Signs Date Time Temp Pulse Resp B/P Pulse Ox O2 Delivery O2 Flow Rate FiO2 07/09/16 11:59 36.9 68 20 146/77 97 Room Air 07/09/16 08:00 Room Air 07/09/16 00:00 Room Air 07/08/16 23:38 36.9 61 20 180/88 97 Room Air 07/08/16 16:00 Room Air 07/08/16 15:42 36.8 61 18 151/79 98 Nasal Cannula 2.0 (Natalya Pereira PA-C) Physical Exam General Appearance: WD/WN, no apparent distress Eyes: sclerae normal ENT: hearing grossly normal, pharynx normal Neck: supple, no JVD, trachea midline Respiratory/Chest: lungs clear, no respiratory distress, no accessory muscle use, + decreased breath sounds Cardiovascular: regular rate, rhythm, no gallop, + systolic murmur Abdomen: normal bowel sounds, non tender, soft Extremities: no pedal edema, no calf tenderness Neurologic/Psychiatric: alert, oriented x 3 Skin: normal color, warm/dry (Natalya Pereira, DAMASO) Laboratory Results Last 24 Hours Test 07/09/16 05:25 White Blood Count 8.57 K/uL Red Blood Count 4.45 M/uL Hemoglobin 12.6 g/dL Hematocrit 37.6 % Mean Corpuscular Volume 84.5 fL Mean Corpuscular Hemoglobin 28.3 pg Mean Corpuscular Hemoglobin Concent 33.5 g/dl RDW Standard Deviation 46.9 fL RDW Coefficient of Variation 15.1 % Platelet Count 193 K/uL Mean Platelet Volume 10.1 fL Sodium Level 139 mmol/L Potassium Level 3.8 mmol/L Chloride Level 106 mmol/L Carbon Dioxide Level 26 mmol/L Anion Gap 7.0 mmol/L Blood Urea Nitrogen 17 mg/dl Creatinine 1.00 mg/dl Est Creatinine Clear Calc Drug Dose 65.3 ml/min Estimated GFR () 80.9 Estimated GFR (Non- 69.8 BUN/Creatinine Ratio 17.2 Random Glucose 97 mg/dl Calcium Level 8.3 mg/dl Magnesium Level 2.5 mg/dl (Natalya Pereira PA-C) Assessment and Plan 80 y/o M Hx mild COPD, BPH, Multi System Atrophy (tremors, falls, bladder dysfunction). Positive for E. Coli UTI and Bacteremia. Sepsis: E. Coli UTI and Gram Negative Bacilli Bacteremia: IMPROVING - AMS resolved; afebrile greater than 24 hours; leukocytosis resolved - Urine culture with pansensitive Escherichia coli - D/C cefepime - Convert to Ciprofloxacin 400 mg IV BID with plans for po conversion on discharge -- Will require approximately 2 weeks antibiotics - consideration for prostatitis which may require longer treatment - Repeat blood cultures to assess for resolution COPD: Without Exacerbation: - Spiriva daily Multi-System Atrophy: - Continue fall precautions and keep head of bed elevated - PT/OT evaluations - initial assessment recommends inpatient rehabilitation versus 24-hour home care with home PT services -- Will await further PT assessments now that patient has improved medically and will plan accordingly -- Family states patient may possibly be better served as inpatient as he has a tendency to not participate with home services DVT Prophylaxis: - IRMA/SCDs - Will defer chemical prophylaxis due to fall risk Code Status: FULL RESUSCITATION Disposition: - PT/OT recommendations - will await further assessment - Possible discharge home in 1-2 days pending repeat cultures Continued [facility] stay due to: multiple IV medications needed (Natalya Pereira, PAJohnC) Attending Attestation: Pt seen/examined, chart reviewed, care plan d/w ELÍAS Pereira. I agree w/ the maya components of her documentation. Pt asks when he can go home. Feels good. eating is about the same as it is at home. denies new complaints. VSS no fever gen - flat affect, suspect 2nd to multiple systems atrophy mouth - MMM heart - RRR, s1, s2, 2-3/6 systolic murmur RUSB lungs - CTA b/l abd - soft, no flank tenderness, NT, BS+ ext - no edema all blood cx's + for GNR urine cx with e. coli, pansens BMP stable CBC stable w/ normal WBC count A/P: e. coli sepsis with bacteremia - improved/resolving. source - UTI. check ERNESTO tomorrow to exclude element of prostatitis. narrow abx to IV cipro q12h. repeat blood cx's to ensure sterility of blood; follow for 48 hours. await repeat PT, OT evals to help determine dispo. family updated at bedside today Neeraj GOMEZ MD (Abhishek Gomez MD)
[2016-07-09 15:26] VITALS: BP 117/67; PULSE 74; TEMP 37.6; O2SAT 97
[2016-07-09 23:48] VITALS: BP 187/96; PULSE 63; TEMP 36.9; O2SAT 96
[2016-07-10 07:08] VITALS: BP 155/75; PULSE 72; TEMP 37.3; O2SAT 93
[2016-07-10] MEDS: TIOTROPIUM BROMIDE 5 PUFF/90 MCG INH INH SCH (07:53)
[2016-07-10] MEDS: AVODART-ORDER AWAITING ACTION SCH ×2 (07:54→15:15)
[2016-07-10] MEDS: TAMSULOSIN HCL 0.4 MG CAP PO SCH (07:55)
[2016-07-10] MEDS: PANTOprazole SOD 40 MG TAB PO SCH (07:55)
[2016-07-10] MEDS: DOCUSATE SODIUM 100 MG CAP PO SCH (07:55)
[2016-07-10] MEDS: ASPIRIN 81 MG ECTAB PO SCH (07:55)
[2016-07-10] MEDS: SENNA 8.6 MG TAB PO SCH (07:56)
[2016-07-10] MEDS: CHOLECALCIFEROL 1000 INTER.UNIT TAB PO SCH (07:56)
[2016-07-10] MEDS: CYANOCOBALAMIN 500 MCG TAB (VIT B-12) PO SCH (07:56)
[2016-07-10] MEDS: CIPROFLOXACIN / D5W 400 MG in PREMIXED IN D5W 200 ML IV SCH ×2 (09:30→20:38)
--- NOTE | 2016-07-10 11:43 | Progress Note ---
Subjective Date of Service: Jul 10, 2016. (Natalya Pereira PA-C) Subjective Pt evaluation today including: conversation w/ patient, physical exam, chart review, lab review, review of inpatient medication list Patient seen and evaluated. No acute events overnight. Patient reporting good sleep and feeling at his baseline. 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 Tolerating Ciprofloxacin and continues to improve Repeat BCx remain pending at this time. (Natalya Pereira PA-C) Problem List Medical Problems: (1) Dysarthria Status: Acute (2) Elevated WBCs Status: Acute (3) Sepsis Status: Acute (4) UTI (urinary tract infection) Status: Acute (Natalya Pereira PA-C) Review of Systems Constitutional: No chills, No fever Eyes: + diplopia (chronic), No worsening of vision ENT: + hearing loss (chronic) Respiratory: No shortness of breath Cardiac: No chest pain Abdomen: No constipation, No diarrhea, No nausea, No pain, No vomiting Male : + urinary frequency, No dysuria Neurologic: + vertigo (intermittent/chronic) Skin: No rash (Natalya Pereira PA-C) Medications Current Inpatient Medications Medications (Trade) Dose Ordered Sig/Humberto Route Start Time Stop Time Status Last Admin Dose Admin Aspirin (Ecotrin Tab) 81 mg QAM PO 07/08/16 08:00 08/07/16 08:59 07/10/16 07:55 81 MG Cholecalciferol (Vitamin D Tab) 1,000 inter.unit DAILY PO 07/08/16 08:00 08/07/16 08:59 07/10/16 07:56 1,000 INTER.UNIT Docusate Sodium (coLACE CAP) 100 mg DAILY PO 07/08/16 08:00 08/07/16 08:59 07/10/16 07:55 100 MG Senna (Senokot Tab) 8.6 mg DAILY PO 07/08/16 08:00 08/07/16 08:59 07/10/16 07:56 8.6 MG Tamsulosin HCl (Flomax Cap) 0.4 mg DAILY PO 07/08/16 08:00 08/07/16 08:59 07/10/16 07:55 0.4 MG Tiotropium [place] (Spiriva Handihaler Inhaler) 1 puff DAILY INH 07/08/16 08:00 08/07/16 08:59 07/10/16 07:53 1 PUFF Cyanocobalamin (Vitamin B-12 Tab) 1,000 mcg DAILY PO 07/08/16 08:00 08/07/16 08:59 07/10/16 07:56 1,000 MCG Miscellaneous Information (Order Awaiting Action) 1 ea QS N/A 07/08/16 00:00 08/07/16 00:00 Pantoprazole Sodium (Protonix Tab) 40 mg QAM PO 07/08/16 08:00 08/07/16 08:59 07/10/16 07:55 40 MG Acetaminophen (Tylenol Tab) 650 mg Q4H PRN PO 07/07/16 20:00 08/06/16 19:59 07/08/16 08:08 650 MG Al Hydrox/Mg Hydrox/Simethicone (Maalox Max Susp) 15 ml Q4H PRN PO 07/07/16 20:00 08/06/16 19:59 Magnesium Hydroxide (Milk Of Magnesia Susp) 30 ml Q6H PRN PO 07/07/16 20:00 08/06/16 19:59 Polyethylene (Miralax Powder Packet) 17 gm DAILY PRN PO 07/07/16 20:00 08/06/16 19:59 Ondansetron HCl 4 mg 4 mg Q6H PRN IV 07/07/16 20:00 08/06/16 19:59 Ciprofloxacin/ Dextrose/Prmx (Cipro / D5w/ Premixed D5W) 200 ml @ 100 mls/hr Q12 IV 07/09/16 09:00 07/19/16 08:59 07/10/16 09:30 100 MLS/HR (Natalya Pereira, DAMASO) Objective Vital Signs Date Time Temp Pulse Resp B/P Pulse Ox O2 Delivery O2 Flow Rate FiO2 07/10/16 07:08 37.3 72 20 155/75 93 Room Air 07/10/16 00:00 Room Air 07/09/16 23:48 36.9 63 16 187/96 96 Room Air 07/09/16 20:00 Room Air 07/09/16 16:00 Room Air 07/09/16 15:26 37.6 74 18 117/67 97 Room Air 07/09/16 11:59 36.9 68 20 146/77 97 Room Air (Natalya Pereira PA-C) Physical Exam General Appearance: WD/WN, no apparent distress Eyes: sclerae normal ENT: + pertinent finding (extremely [place]) Neck: supple, no JVD, trachea midline Respiratory/Chest: lungs clear, no respiratory distress, no accessory muscle use, + decreased breath sounds Cardiovascular: regular rate, rhythm, no gallop, + systolic murmur Abdomen: normal bowel sounds, non tender, soft Extremities: no pedal edema, no calf tenderness Neurologic/Psychiatric: alert, oriented x 3 Skin: normal color, warm/dry (Natalya Pereira PA-C) Assessment and Plan 80 y/o M Hx mild COPD, BPH, Multi System Atrophy (tremors, falls, bladder dysfunction). Positive for E. Coli UTI and Bacteremia. Sepsis: E. Coli UTI and Gram Negative Bacilli Bacteremia: IMPROVING - Continue Ciprofloxacin 400 mg IV BID with plans for po conversion on discharge -- Will require approximately 2 weeks antibiotics - consideration for prostatitis which may require longer treatment - Repeat blood cultures to assess for resolution - pending COPD: Without Exacerbation: - Spiriva daily Multi-System Atrophy: - Continue fall precautions and keep head of bed elevated - PT/OT evaluations - initial assessment recommends inpatient rehabilitation versus 24-hour home care with home PT services -- Will await further PT assessments now that patient has improved medically and will plan accordingly -- Family states patient may possibly be better served as inpatient as he has a tendency to not participate with home services DVT Prophylaxis: - IRMA/SCDs - Will defer chemical prophylaxis due to fall risk Code Status: FULL RESUSCITATION Disposition: - PT/OT recommendations - will await further assessment - Possible discharge home in 1-2 days pending repeat cultures Continued [facility] stay due to: multiple IV medications needed (Natalya Pereira PA-C) Attending attestation: Pt seen/examined, chart reviewed, care plan d/w ELÍAS Pereira. I agree with the maya components of her documentation. Pt feels good and is "ready to go." He c/o chronic dizziness with walking. eating is fair. VSS no fever this am gen - nad heart - RRR lungs - CTA b/l abd - soft, NT rectal - no fecal impaction; no masses; prostate enlarged, right lobe bigger than left lobe, no masses, not tender, not boggy repeat blood cx's negative A/P: e. coli UTI with sepsis/bacteremia - day #4 of abx - improving nicely. cont cipro IV; consider transition to PO tomorrow. no evidence of clinical prostatitis on exam today. chronic dizziness - suspect 2nd to orthostasis. consider low-dose midodrine. Place TEDS to lower extremities. Likely needs rehab due to deconditioning and already poor functional baseline. family updated d/c tomorrow or Monday Neeraj GOMEZ MD (Abhishek Gomez MD)
[2016-07-10 15:21] VITALS: BP 177/85; PULSE 60; TEMP 36.4; O2SAT 96
[2016-07-10 17:20] VITALS: BP_SYST 111; BP_SYST 160; BP_SYST 174; BP_DIAS 72; BP_DIAS 79; BP_DIAS 92; PULSE 67; PULSE 70; PULSE 76
[2016-07-10 23:45] VITALS: BP 152/82; PULSE 62; TEMP 37.6; O2SAT 96
[2016-07-11] MEDS: AVODART-ORDER AWAITING ACTION SCH ×4 (07:20→23:23)
[2016-07-11 07:36] VITALS: BP 130/78; PULSE 78; TEMP 37.3; O2SAT 98
[2016-07-11 08:00] VITALS: O2SAT 98
[2016-07-11] MEDS: CIPROFLOXACIN / D5W 400 MG in PREMIXED IN D5W 200 ML IV SCH (08:06)
[2016-07-11] MEDS: CYANOCOBALAMIN 500 MCG TAB (VIT B-12) PO SCH (08:06)
[2016-07-11] MEDS: SENNA 8.6 MG TAB PO SCH (08:06)
[2016-07-11] MEDS: ASPIRIN 81 MG ECTAB PO SCH (08:06)
[2016-07-11] MEDS: TIOTROPIUM BROMIDE 5 PUFF/90 MCG INH INH SCH (08:06)
[2016-07-11] MEDS: DOCUSATE SODIUM 100 MG CAP PO SCH (08:06)
[2016-07-11] MEDS: CHOLECALCIFEROL 1000 INTER.UNIT TAB PO SCH (08:06)
[2016-07-11] MEDS: PANTOprazole SOD 40 MG TAB PO SCH (08:07)
[2016-07-11] MEDS: TAMSULOSIN HCL 0.4 MG CAP PO SCH (08:07)
[2016-07-11 09:05] VITALS: BP_SYST 107; BP_SYST 110; BP_DIAS 53; BP_DIAS 64
--- NOTE | 2016-07-11 09:47 | DIAGNOSTIC IMAGING REPORT ---
ABDOMEN AND PELVIS CT WITHOUT CONTRAST CT DOSE: 1009.22 mGycm HISTORY: Persistent fever. Altered mental status. Urinary tract infection. TECHNIQUE: Multiaxial CT images of the abdomen and pelvis were performed without the use of intravenous and oral contrast according to the standard department stone protocol. COMPARISON STUDY: PET CT 09/10/2014. FINDINGS: Streak artifact from the patient's overlapping arms results in suboptimal evaluation. Trace pericardial fluid and emphysema, unchanged. There are mild dependent changes seen within the lungs posteriorly. The unenhanced liver, gallbladder, spleen, adrenal glands, and pancreas are unremarkable. No retroperitoneal lymphadenopathy. Note definite renal stones or hydronephrosis. The bladder is unremarkable. The prostate gland is mildly enlarged. Suboptimal evaluation for bowel pathology due to the lack of intravenous and oral contrast. However, there is no definite bowel wall thickening or obstruction. The appendix is not identified and is likely surgically absent. IMPRESSION: 1. No renal stones or hydronephrosis. 2. No definite bowel wall thickening or obstruction. Electronically signed by: Frantz Walters M.D. 07/11/2016 9:46 AM Dictated Date/Time: 07/11/2016 9:38 AM
[2016-07-11 15:02] VITALS: BP 131/71; PULSE 62; TEMP 36.5; O2SAT 97
[2016-07-11 15:53] VITALS: BP_SYST 120; BP_SYST 128; BP_SYST 132; BP_DIAS 66; BP_DIAS 68; BP_DIAS 69; PULSE 68; PULSE 70
[2016-07-11] MEDS: CIPROFLOXACIN 500 MG TAB PO SCH (20:12)
--- NOTE | 2016-07-12 00:20 | Progress Note ---
Subjective Date of Service: Jul 11, 2016. Subjective Pt evaluation today including: conversation w/ patient, physical exam, chart review, lab review, review of studies (CT abd/pelvis renal stone protocol) Pain: none PO Intake: fair Voiding: incontinence no issues overnight reports he is feeling well interested in going to [facility] for rehab Problem List Medical Problems: (1) Dysarthria Status: Acute (2) Elevated WBCs Status: Acute (3) Sepsis Status: Acute (4) UTI (urinary tract infection) Status: Acute Review of Systems Constitutional: + fatigue, + fever (Tm 37.6 ) Respiratory: No cough, No dyspnea on exertion, No shortness of breath, No sputum Cardiac: No chest pain, No orthopnea Abdomen: No pain Neurologic: + problem reported (dizziness, worst with standing) Objective Vital Signs Date Time Temp Pulse Resp B/P Pulse Ox O2 Delivery O2 Flow Rate FiO2 07/11/16 16:30 Room Air 07/11/16 15:53 70 132/66 70 120/69 68 128/68 07/11/16 15:02 36.5 62 17 131/71 97 Room Air 07/11/16 09:05 110/64 107/53 07/11/16 08:00 98 Room Air 07/11/16 07:36 37.3 78 20 130/78 98 Room Air Physical Exam General Appearance: no apparent distress ENT: pharynx normal Neck: no JVD Respiratory/Chest: lungs clear, no respiratory distress, no accessory muscle use Cardiovascular: regular rate, rhythm, no gallop Abdomen: normal bowel sounds, non tender, soft, no organomegaly Extremities: no pedal edema Neurologic/Psychiatric: alert Assessment and Plan 80yo male with: 1. e. coli UTI with sepsis/bacteremia - day #5 of abx - improving nicely. Had low-grade fever overnight; CT abd/pelvis checked to r/o complicating renal stone -- NEGATIVE for such. No other abnormalities on CT. Continue cipro 500mg BID for total of 14 days (again day #5/14). No evidence of clinical prostatitis on exam yesterday. Repeat blood cx's negative suggesting sterility of blood. 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 3. chronic dizziness - suspect 2nd to orthostasis. Orthostatics have in fact been positive. TEDS hose applied. Consider low-dose midodrine if orthostasis persists/worsens. 4. deconditioning - needs rehab. 5. BPH - continue flomax cautiously in light of #3 above. 6. HTN - controlled. 7. COPD - controlled. NO symptoms at this time. 8. DVT proph - add lovenox 40mg daily in AM. dispo - hopefully [facility] pending approval Discharge planning: rehab hospital
[2016-07-12 00:32] VITALS: BP 168/92; PULSE 64; TEMP 36.8; O2SAT 98
[2016-07-12 07:17] VITALS: BP 161/88; PULSE 89; TEMP 37.1; O2SAT 96
[2016-07-12] MEDS: AVODART-ORDER AWAITING ACTION SCH ×3 (08:00→23:56)
[2016-07-12] MEDS: CIPROFLOXACIN 500 MG TAB PO SCH ×2 (08:02→20:14)
[2016-07-12] MEDS: TIOTROPIUM BROMIDE 5 PUFF/90 MCG INH INH SCH (08:03)
[2016-07-12] MEDS: TAMSULOSIN HCL 0.4 MG CAP PO SCH (08:03)
[2016-07-12] MEDS: PANTOprazole SOD 40 MG TAB PO SCH (08:03)
[2016-07-12] MEDS: CHOLECALCIFEROL 1000 INTER.UNIT TAB PO SCH (08:03)
[2016-07-12] MEDS: SENNA 8.6 MG TAB PO SCH (08:04)
[2016-07-12] MEDS: CYANOCOBALAMIN 500 MCG TAB (VIT B-12) PO SCH (08:04)
[2016-07-12] MEDS: DOCUSATE SODIUM 100 MG CAP PO SCH (08:04)
[2016-07-12] MEDS: ASPIRIN 81 MG ECTAB PO SCH (08:04)
[2016-07-12] MEDS: ENOXAPARIN 40 MG/0.4 ML SYR SQ SCH (08:24)
[2016-07-12] MEDS ORDERED: HydrALAZINE HCL 20 MG/ML VIAL IV. PRN (09:00)
--- NOTE | 2016-07-12 09:57 | Hospitalist Progress Note ---
Hospitalist Progress Note Date of Service Jul 12, 2016. Subjective Pt evaluation today including: conversation w/ patient, physical exam, chart review, lab review, review of studies, review of inpatient medication list Patient is hard of hearing and uses a device with connected ear buds to assist his hearing. He declines having any chest pain or SOB. He does not recall having a fever or feeling chills or rigors. Sign out from Dr. Cano reveals that the plan will be for him to go to [facility] when bed available. Additional Comments: A 10 system review was performed and all were negative. Positives were placed in the subjective section. Objective Vital Signs Date Time Temp Pulse Resp B/P Pulse Ox O2 Delivery O2 Flow Rate FiO2 07/12/16 08:00 Room Air 07/12/16 07:17 37.1 89 20 161/88 96 Room Air 07/12/16 00:32 36.8 64 18 168/92 98 Room Air 07/12/16 00:00 Room Air 07/11/16 16:30 Room Air 07/11/16 15:53 70 132/66 70 120/69 68 128/68 07/11/16 15:02 36.5 62 17 131/71 97 Room Air Physical Exam Notes: GEN: Awake, alert. Not in acute distress HEENT: Tm's intact, no inflammation, EOMI, PERRLA, MMM Neck: Soft, supple Lungs: CTA b/l, no r/r/w Heart: REG, nrl S1S2 without murmurs, rubs or gallops Abdomen: Soft, NT, ND, + BS EXT: No C/C/E NEURO: CN's II-XII grossly intact, non-focal Skin: warm, dry, no rashes PSYCH: pleasant, cooperative. Assessment and Plan 1) UTI - e.coli. day 6/14 of Cipro 2) Bacteremia - e.coli. Now on oral Cipro transitioned from IV. 3) BPH - taking Flomax 4) HTN - few high readings this am, otherwise has been stable. 5) Hearing loss - chronic 6) Deconditioning - awaiting approval for [facility]. I feel he could be discharged at any time now. DVT prophylaxis - sub-q Lovenox. Discharge planning: rehab hospital
[2016-07-12 15:04] VITALS: BP 123/76; PULSE 76; TEMP 36.6; O2SAT 96
[2016-07-12 23:50] VITALS: BP 163/94; PULSE 62; TEMP 36.8; O2SAT 96
[2016-07-13 00:11] VITALS: BP 163/94; PULSE 62; TEMP 36.8; O2SAT 96
[2016-07-13 01:00] VITALS: BP 127/74; PULSE 80
[2016-07-13 07:41] VITALS: BP 145/74; PULSE 68; TEMP 36.7; O2SAT 97
[2016-07-13] MEDS: TAMSULOSIN HCL 0.4 MG CAP PO SCH (08:17)
[2016-07-13] MEDS: SENNA 8.6 MG TAB PO SCH (08:17)
[2016-07-13] MEDS: CHOLECALCIFEROL 1000 INTER.UNIT TAB PO SCH (08:17)
[2016-07-13] MEDS: CIPROFLOXACIN 500 MG TAB PO SCH (08:17)
[2016-07-13] MEDS: PANTOprazole SOD 40 MG TAB PO SCH (08:17)
[2016-07-13] MEDS: DOCUSATE SODIUM 100 MG CAP PO SCH (08:18)
[2016-07-13] MEDS: AVODART-ORDER AWAITING ACTION SCH (08:18)
[2016-07-13] MEDS: ENOXAPARIN 40 MG/0.4 ML SYR SQ SCH (08:18)
[2016-07-13] MEDS: ASPIRIN 81 MG ECTAB PO SCH (08:18)
[2016-07-13] MEDS: CYANOCOBALAMIN 500 MCG TAB (VIT B-12) PO SCH (08:18)
[2016-07-13 08:30] VITALS: O2SAT 97
[2016-07-13] MEDS ORDERED: CPR500 PO (09:47)
--- NOTE | 2016-07-13 09:57 | Discharge Instructions ---
Discharge Instructions Date of Service Jul 13, 2016. Admission Reason for Admission: Altered Mental Status, Uti Discharge Discharge Diagnosis / Problem: Sepsis with Pansensitive E. Coli UTI and Bacteremia Discharge Goals Goal(s): Decrease discomfort, Improve function, Increase independence Activity Recommendations Activity Level: Assistance Required . Additional Information Patient informed of condition: Yes Advance Directives: No DNR: No Level of Care: Acute Rehab Communicable Disease: No Prognosis: Improving Edmondson Catheter: No Instructions / Follow-Up Instructions / Follow-Up 80 y/o M Hx mild COPD, BPH, Multi System Atrophy (tremors, falls, bladder dysfunction). Positive for E. Coli UTI and Bacteremia. Sepsis: E. Coli UTI and Pansensitive Gram Negative Bacilli Bacteremia: RESOLVED - Continue Ciprofloxacin 500 mg po BID (given one dose today in hospital) - DAY #11/04 -- Take one dose tonight (07/13) then continue BID until complete on 07/20/16 - Repeat BCx - NGTD and afebrile without leukocystosis - No evidence of prostatitis on ERNESTO and Abd/Pelvis CT without evidence of ureteral stones - he is at increased risk for recurrent UTIs given MSA (bladder dysfunction) and BPH -- Attention to Flomax and orthostasis - Patient is extremely heard of hearing - is alert and oriented to person, place , and time - he is intermittently confused and forgetful at baseline COPD: Without Exacerbation: - Spiriva daily Multi-System Atrophy: - Continue fall precautions and keep head of bed elevated - PT/OT evaluations - initial assessment recommends inpatient rehabilitation versus 24-hour home care with home PT services - Patient with chronic dizziness and blurred vision - consideration for Midodrine low dose to help with orthostasis DVT Prophylaxis: - IRMA/SCDs - Treated with Lovenox 40 mg SC daily Code Status: FULL RESUSCITATION Current Hospital Diet Patient's current hospital diet: Regular Diet Discharge Diet Recommended Diet: Regular Diet Pending Studies Studies pending at discharge: no Physician Orders On Transfer POLST Discussion: Not Applicable Medical Emergencies . Who to Call and When: Medical Emergencies: If at any time you feel your situation is an emergency, please call 911 immediately. . Non-Emergent Contact Non-Emergency issues call your: Primary Care Provider Call Non-Emergent contact if: you have a fever, your pain is concerning you, you have any medication questions . . "Provider Documentation" section prepared by Natalya Pereira. Core Measure Problem Core Measures: None
[2016-07-13] MEDS: TIOTROPIUM BROMIDE 5 PUFF/90 MCG INH INH SCH (10:37)
[2016-07-13 11:37] VITALS: BP 145/74; PULSE 68; TEMP 36.7; O2SAT 97
--- NOTE | 2016-07-13 15:04 | Discharge Summary ---
Discharge Summary Date of Service Jul 13, 2016. (Natalya Pereira PA-C) Discharge Summary Admission Date: Jul 07, 2016 at 19:55 Discharge Date: Jul 13, 2016 Discharge Disposition: Rehab Principal Diagnosis: Sepsis from Pansenstive UTI with Bacteremia Immunizations: Tetanus Immunization Date: Sep 22, 2013 Procedures: 1. HEAD CT NONCONTRAST CT DOSE: 906.34 mGycm HISTORY: dizzy TECHNIQUE: Multiaxial CT images of the head were performed without the use of intravenous contrast. Automated exposure control was utilized for this study. Comparison: Head CT 02/20/2016. Findings: Trace fluid within the right maxillary sinus. The calvarium and skull base are intact. There is no mass, hematoma, midline shift, acute infarct. White matter hypodensity is nonspecific but suggestive of microvascular ischemic change. The ventricles and sulci demonstrate mild age-related involutional changes. Impression: No acute intracranial abnormality. Trace fluid within the right maxillary sinus. 2. CHEST ONE VIEW PORTABLE HISTORY: Sepsis COMPARISON: Chest 02/20/2016. . FINDINGS: Mild interstitial thickening which is likely chronic. No focal lung consolidations to suggest pneumonia. No evidence for pulmonary edema. No pleural effusions. No pneumothorax. The heart remains mildly enlarged. Small scarlike density within the right upper lung zone IMPRESSION: 1. Stable mild cardiomegaly. 2. Mild interstitial thickening which is likely chronic. 3. ABDOMEN AND PELVIS CT WITHOUT CONTRAST CT DOSE: 1009.22 mGycm HISTORY: Persistent fever. Altered mental status. Urinary tract infection. TECHNIQUE: Multiaxial CT images of the abdomen and pelvis were performed without the use of intravenous and oral contrast according to the standard department stone protocol. COMPARISON STUDY: PET CT 09/10/2014. FINDINGS: Streak artifact from the patient's overlapping arms results in suboptimal evaluation. Trace pericardial fluid and emphysema, unchanged. There are mild dependent changes seen within the lungs posteriorly. The unenhanced liver, gallbladder, spleen, adrenal glands, and pancreas are unremarkable. No retroperitoneal lymphadenopathy. Note definite renal stones or hydronephrosis. The bladder is unremarkable. The prostate gland is mildly enlarged. Suboptimal evaluation for bowel pathology due to the lack of intravenous and oral contrast. However, there is no definite bowel wall thickening or obstruction. The appendix is not identified and is likely surgically absent. IMPRESSION: 1. No renal stones or hydronephrosis. 2. No definite bowel wall thickening or obstruction. Consultations: 1. PT/OT Evaluations - Recommending acute rehab vs 14/11 care and home PT services (Natalya Pereira, JUNEC) Medication Reconciliation New Medications: Ciprofloxacin (Ciprofloxacin HCl) 500 Mg Tab 500 MG PO BID, #15 TAB take one dose tonight (07/13) then continue twice a day until 07/20/16. Continued Medications: Acetaminophen (Tylenol) 325 Mg Tab 325 MG PO BID PRN for Pain, TAB Aspirin (Aspirin 81) 81 Mg Tab 81 MG PO QAM Cholecalciferol (Vitamin D3) 1,000 Unit Tab 1 TAB PO DAILY Cyanocobalamin (Vitamin B-12) 1,000 Mcg Sub 1000 MCG PO DAILY Docusate Sodium (Colace) 100 Mg Cap 100 MG PO DAILY Dutasteride (Dutasteride) 0.5 Mg Cap 1 TAB PO DAILY, #30 Iron-Vitamin C (Vitron-C) 1 Tab Tab 1 TAB PO DAILY Omeprazole (Omeprazole) 20 Mg Tab 1 TAB PO DAILY, TAB Senna (Senokot) 8.6 Mg Tab 8.6 MG PO DAILY, TAB Tamsulosin HCl (Tamsulosin HCl) 0.4 Mg Cap 0.4 MG PO DAILY Tiotropium Stevens (Spiriva Handihaler) 30 Puff/540 Mcg Aerp 1 CAP INH DAILY, INHALER Discharge Exam Review of Systems: Constitutional: No chills, No fever Eyes: + diplopia (chronic) ENT: No nasal symptoms, No sore throat, No trouble swallowing Respiratory: No cough, No shortness of breath Cardiovascular: No chest pain Abdomen: No constipation, No diarrhea, No nausea, No pain, No vomiting Musculoskeletal: No calf pain, No swelling Genitourinary - Male: No dysuria, No urinary frequency Neurologic: + vertigo (chronic) Hematologic / Lymphatic: No abnormal bleeding/bruising, No clotting problems Integumentary: No rash Physical Exam: General Appearance: no apparent distress, + thin Eyes: sclerae normal ENT: + pertinent finding (hard of hearing) Neck: supple, no JVD, trachea midline Respiratory/Chest: lungs clear, normal breath sounds, no respiratory distress, no accessory muscle use Cardiovascular: regular rate, rhythm, no gallop, + systolic murmur (I-II/) Abdomen / GI: normal bowel sounds, non tender, soft Extremities: no calf tenderness, no pedal edema Neurologic/Psychiatric: alert, oriented x 3 Skin: normal color, warm/dry (Natalya Pereira PA-C) Hospital Course ADMISSION: 80 y/o M Hx mild COPD, BPH, Multi System Atrophy (tremors, falls, bladder dysfunction). Was in his normal state of health earlier in afternoon. The developed acute fever, rigors, weakness and confusion. He was unable to mobilize without assistance and family noted urinary frequency over the last few days. Similar symptoms have occurred previously with infection. The pt is not able to contribute significantly to the HP - information is obtained by family at bedside. A UTI was confirmed in the ER. HOSPITAL COURSE: Mr. Chiang was admitted for AMS from sepsis due to pansensitive Escherichia coli UTI and bacteremia. Bacteremia confirmed by blood cultures 2. Patient was initially placed on cefepime 2 g IV Q12H which was converted to ciprofloxacin 400 mg IV BID. Repeat blood cultures obtained with no growth to date. ERNESTO performed that revealed an enlarged prostate, however no tenderness appreciated, or bogginess. CT of the abdomen and pelvis was obtained that did not show renal calculi. Please see procedures for official report. Patient was converted to ciprofloxacin 500 mg po with plans to complete a 14 day course. Due to his multisystem atrophy (bladder dysfunction), intermittent incontinence, and BPH he is at increased risk for recurrent urinary tract infections. During hospital admission, patient continued to complain of lightheadedness and diplopia that has been on ongoing chronic issue. It is believed that the symptoms are related to his multisystem atrophy. Orthostatic readings obtained which support orthostasis. Consideration for low-dose midodrine as an outpatient to help manage symptoms, however while supine and sitting he has a tendency to be hypertensive. All home medications were continued as previously prescribed. Consideration for Flomax contribution to orthostasis. PT/OT evaluations obtained which recommend 24/7 care at home versus acute rehabilitation. Patient is alert and oriented to person, place, time. He is afebrile without leukocytosis. Patient is suitable for discharge to [facility]. Code Status: FULL RESUSCITATION Total Time Spent: Greater than 30 minutes This includes examination of the patient, discharge planning, medication reconciliation, and communication with other providers. (Natalya Pereira PA-C) Discharge Instructions Please refer to the electronic Patient Visit Report (Discharge Instructions) for additional information. (Natalya Pereira PA-C) Follow-Up I personally evaluated this patient and performed a physical exam. I reviewed the orders. I read this discharge summary completed by Natalya Pereira PA-C and agree with the contents in entirety. (Josiah Brand, DO) Additional Copies To RV. Garcia MD; [facility]
[2016-07-13 15:07] VITALS: BP 147/73; PULSE 68; TEMP 36.6; O2SAT 97
--- NOTE | 2016-07-15 10:47 | EDITING REQUIRED CODING QUERY ---
SEPSIS To promote full compliance with coding requirements relating to patient care, physician participation is requested in all cases of superior court clerk uncertainty. Please assist us with the question(s) below: In responding to this query, please exercise your independent professional judgement. The fact that a question is asked does not imply that any particular answer is desired or expected. We appreciate your clarification on this issue. THE TERMS SEPSIS AND BACTEREMIA CANNOT BE USED INTERCHANGABLE BELOW CAN YOU PLEASE CLARIFY YOUR FINAL DIAGNOSIS OF Sepsis from Pansenstive UTI with Bacteremia ()Bacteremia (Nonspecific laboratory finding of bacteria in the blood) Specify Organism () Present on Admission () Not present on admission () Unable to clinically determine (x) Sepsis Specify Organism E. Coli Specify Associated Condition/Diagnosis (x) Present on Admission () Not present on admission () Unable to clinically determine () Other, patient has:
[2016-10-31] MEDS ORDERED: IBUP-103 PO (16:53)
[2016-11-02] MEDS ORDERED: SNM/25100 PO (13:37)
== END 2016-07-13 16:30 | DRG 872 ==
LOC: ENRESERVTM → ENRESERVDT → EDBD 16:33 → C.EDB 16:36 → C.4E 19:55
PROVIDERS: ADMIT Internal Medicine; ATTEND Hospitalist
DX: A41.51 Sepsis due to Escherichia coli [E. coli] (principal); N39.0 Urinary tract infection, site not specified; G90.3 Multi-system degeneration of the autonomic nervous system; K21.9 Gastro-esophageal reflux disease without esophagitis; J44.9 Chronic obstructive pulmonary disease, unspecified; R42 Dizziness and giddiness; N40.0 Benign prostatic hyperplasia without lower urinary tract symptoms; I10 Essential (primary) hypertension; Z83.3 Family history of diabetes mellitus; Z82.49 Family history of ischemic heart disease and other diseases of the circulatory system; Z87.891 Personal history of nicotine dependence; Z79.82 Long term (current) use of aspirin

== ENCOUNTER → 2016-08-01 | Outpatient (CLI) | payer OTHER, BC ==
[~2016-08-01] MED LIST changes: +ACET-1256 PO; -ANT25 PO; +CARB25TA16 PO; +CARB50TA3 PO; +CHOL1000 PO; -CHOL100010 PO; +CPR500 PO; +CYAN500T PO; +DUTA0.5C PO; +DUTA1CAP3 PO; +ENOX40IN SQ; +FERROUS FUMARATE PO; -FLR1 PO; +FRRS300 PO; +IBUP-103 PO; -IRON SUPPLEMENT PO; +LPT/20 PO; +LSN5 PO; +MOML PO; +MULT-845 PEG; -OMEP10CA2 PO; +OMEP20TA PO; +PANT1TAB48 PO; +POLY335019 PO; +SNM/25100 PO; +SPRIN/30 INH; +SULF800T23 PO; +SYM100 PO; -TIOTCAP INH; +UMEC1INH INH; +VTMD1000 PO
[2016-08-01 12:39] LABS: BASO % 0.3 %; BASO ABS # 0.02 K/uL (0-0.2); COMPLETE YES; EOS % 3.9 %; HEMATOCRIT 38.1 % (42-52); IG% 0.3 %; LYMPH % 21.2 %; LYMPH ABS # 1.57 K/uL (1.2-3.4); MEAN CELL VOLUME 84.3 fL (80-100); MEAN CORPUSCULAR HEMOGLOBIN 27.9 pg (25-34); MEAN CORPUSCULAR HGB CONC 33.1 g/dl (32-36); MEAN PLATELET VOLUME 10.2 fL (7.4-10.4); MONO % 8.8 %; NEUT % 65.5 %; PLATELET COUNT 306 K/uL (130-400); RED BLOOD COUNT 4.52 M/uL (4.7-6.1); WHITE BLOOD COUNT 7.39 K/uL (4.8-10.8)
[2016-08-01 13:19] LABS: ALT/SGPT 38 U/L (12-78); BLOOD UREA NITROGEN 21 mg/dl (7-18); BUN/CREATININE RATIO 21.1 (10-20); CALCIUM 9.1 mg/dl (8.5-10.1); CARBON DIOXIDE 27 mmol/L (21-32); CHLORIDE 104 mmol/L (98-107); CREATININE 0.99 mg/dl (0.60-1.40); GLUCOSE 90 mg/dl (70-99); POTASSIUM 4.1 mmol/L (3.5-5.1); SODIUM 139 mmol/L (136-145)
[2016-08-01 13:22] LABS: ALB/GLOB RATIO 1.1 (0.9-2); ALKALINE PHOSPHATASE 100 U/L (45-117); AST/SGOT 28 U/L (15-37)
== END | disposition home or self-care (01) ==
LOC: C.LAB 10:47
PROVIDERS: ATTEND Internal Medicine
DX: I25.10 Atherosclerotic heart disease of native coronary artery without angina pectoris (principal); G45.9 Transient cerebral ischemic attack, unspecified; D64.9 Anemia, unspecified; I10 Essential (primary) hypertension

== ENCOUNTER 2016-10-31 13:30 | Inpatient (IN) | payer OTHER, BC ==
[~2016-10-31] VITALS: Ht 177.8 cm; Wt 87.9 kg
[~2016-10-31 13:30] MED LIST changes: -ACET-1256 PO; -ACET-1311 PO; -CARB25TA16 PO; -CARB50TA3 PO; -CPR500 PO; -CYAN500T PO; -DUTA0.5C PO; -ENOX40IN SQ; -FERROUS FUMARATE PO; -FRRS300 PO; -IBUP-103 PO; -LPT/20 PO; -LSN5 PO; -MOML PO; -MULT-845 PEG; -PANT1TAB48 PO; -POLY335019 PO; -SNM/25100 PO; -SULF800T23 PO; -SYM100 PO; -UMEC1INH INH; -VTMD1000 PO
[2016-10-31] MEDS ORDERED: SODIUM CHLORIDE 0.9% 1000ML 1,000 ML IV STA (14:08)
[2016-10-31] MEDS ORDERED: SODIUM CHLORIDE 0.9% 500ML 500 ML IV STA (14:32)
[2016-10-31 14:44] LABS: BASO % 0.4 %; BASO ABS # 0.03 K/uL (0-0.2); COMPLETE YES; EOS % 4.2 %; IG% 0.3 %; LYMPH % 22.5 %; LYMPH ABS # 1.64 K/uL (1.2-3.4); MEAN CELL VOLUME 85.1 fL (80-100); MEAN CORPUSCULAR HEMOGLOBIN 27.9 pg (25-34); MEAN CORPUSCULAR HGB CONC 32.8 g/dl (32-36); MEAN PLATELET VOLUME 9.8 fL (7.4-10.4); MONO % 10.4 %; NEUT % 62.2 %; PLATELET COUNT 253 K/uL (130-400)
[2016-10-31 14:53] LABS: ALT/SGPT 26 U/L (12-78); BLOOD UREA NITROGEN 20 mg/dl (7-18); BUN/CREATININE RATIO 20.3 (10-20); CALCIUM 8.8 mg/dl (8.5-10.1); CARBON DIOXIDE 26 mmol/L (21-32); CHLORIDE 105 mmol/L (98-107); GLUCOSE 120 mg/dl (70-99); MAGNESIUM 2.3 mg/dl (1.8-2.4); POTASSIUM 4.1 mmol/L (3.5-5.1); SODIUM 139 mmol/L (136-145)
[2016-10-31 14:56] LABS: PARTIAL THROMBOPLASTIN RATIO 1.1; PROTHROMBIN TIME (PATIENT) 10.4 SECONDS (9.0-12.0)
[2016-10-31 15:04] LABS: ALKALINE PHOSPHATASE 96 U/L (45-117); AST/SGOT 21 U/L (15-37); THYROID STIMULATING HORMONE 0.848 uIu/ml (0.300-4.500)
--- NOTE | 2016-10-31 15:21 | DIAGNOSTIC IMAGING REPORT ---
SINGLE VIEW CHEST CLINICAL HISTORY: Generalized weakness. FINDINGS: An AP, portable, upright chest radiograph is compared to study dated 09/28/2015 and correlated with chest CT dated 05/30/15. The examination is degraded by portable technique and patient rotation. The heart is enlarged and there is atherosclerotic calcification of the thoracic aorta. The pulmonary vasculature is noncongested. Advanced emphysema and chronic interstitial thickening are similar to previous. No airspace consolidation or large pleural effusion is identified. No pneumothorax is seen. The skeletal structures are osteopenic. The bony thorax is grossly intact. Degenerative change is present throughout the thoracic spine. IMPRESSION: Cardiomegaly and advanced emphysema. No acute cardiopulmonary abnormality is seen. Electronically signed by: Landen Phelan M.D. 10/31/2016 3:19 PM Dictated Date/Time: 10/31/2016 3:18 PM
--- NOTE | 2016-10-31 16:32 | DIAGNOSTIC IMAGING REPORT ---
CT SCAN OF THE BRAIN WITHOUT IV CONTRAST CLINICAL HISTORY: Generalized weakness. COMPARISON STUDY: CT of the brain dated 09/27/2016. TECHNIQUE: Unenhanced axial CT scan of the brain is performed from the vertex to the skull base. CT DOSE: 614.27 mGy.cm FINDINGS: Brain parenchyma: There are age-related involutional changes noting mild subcortical and periventricular microangiopathic change. There is no hemorrhage, mass effect, or evidence of acute territorial ischemia by CT criteria. Watkins-white matter is preserved. No extra-axial fluid collection is seen. Ventricles, sulci, cisterns: Prominent secondary to involutional change. Intracranial vasculature: There is atherosclerotic calcification of the cavernous carotid and vertebral arteries. Calvarium: Unremarkable. Sinuses and mastoids: The visualized paranasal sinuses are clear. The mastoid air cells are well pneumatized. Orbits: The bony orbits are grossly intact. There is a right ocular lens implant. IMPRESSION: There is no hemorrhage, mass effect, or evidence of acute territorial ischemia by CT criteria. Electronically signed by: Landen Phelan M.D. 10/31/2016 4:30 PM Dictated Date/Time: 10/31/2016 4:28 PM
[2016-10-31] MEDS ORDERED: IBUP-103 PO ×2 (16:53)
[2016-10-31] MEDS ORDERED: HydrALAZINE HCL 20 MG/ML VIAL IV. STA ×2 (17:39→18:43)
[2016-10-31 18:11] LABS: URINE APPEARANCE CLEAR (CLEAR); URINE BILIRUBIN NEG (NEG); URINE COLOR YELLOW; URINE NITRITE NEG (NEG); URINE SPECIFIC GRAVITY 1.009 (1.000-1.030); UROBILINOGEN NEG (NEG)
[2016-10-31 18:16] LABS: MANUAL MICROSCOPIC REQUIRED? NO; REVIEW REQ? NO
[2016-10-31] MEDS ORDERED: ONDANSETRON INJ 2 MG/ML 2 ML VIAL IV PRN (21:15)
[2016-10-31] MEDS ORDERED: NITROGLYCERIN 0.4 MG SL PER TAB CHARGE SL PRN (21:15)
[2016-10-31] MEDS ORDERED: ALUMINUM/MAGNESIUM/SIMETH (MAALOX MAX) 30 ML UDC PO PRN (21:15)
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
[2016-10-31] MEDS: SODIUM CHLORIDE 0.9% 1000ML 1,000 ML IV SCH (23:00)
[2016-10-31 23:05] VITALS: BP 160/82; PULSE 73; TEMP 36.9; O2SAT 96; Ht 177.8 cm; Wt 87.9 kg
[2016-11-01] VITALS (13 sets, daily range): BP systolic 112–219; BP diastolic 69–97; PULSE 56–80; TEMP 36.3–36.7; O2SAT 95–97
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
--- NOTE | 2016-11-01 07:52 | Family Medicine Progress Note ---
Progress Note Date of Service Nov 01, 2016. Subjective Pt evaluation today including: conversation w/ patient Voiding: no voiding problems, no incontinence Mr Chiang reported feeling ok this morning. Denied any pain, but noted some discomfort with his back. Was eating breakfast independently. Is hard of hearing. Constitutional: No fever Eyes: No worsening of vision ENT: + hearing loss Cardiovascular: No chest pain All Other Systems: Reviewed and Negative Medications Current Inpatient Medications Medications (Trade) Dose Ordered Sig/Humberto Route Start Time Stop Time Status Last Admin Dose Admin Sodium Chloride 1,000 ml @ 100 mls/hr Q10H IV 10/31/16 23:00 11/30/16 22:59 10/31/16 23:00 100 MLS/HR Acetaminophen (Tylenol Tab) 650 mg Q4H PRN PO 10/31/16 21:15 11/30/16 21:14 Al Hydrox/Mg Hydrox/Simethicone (Maalox Max Susp) 15 ml Q4H PRN PO 10/31/16 21:15 11/30/16 21:14 Ondansetron HCl (Zofran Inj) 4 mg Q6H PRN IV 10/31/16 21:15 11/30/16 21:14 Nitroglycerin (Nitrostat Tab) 0.4 mg UD PRN SL 10/31/16 21:15 11/30/16 21:14 Aspirin (Ecotrin Tab) 81 mg QAM PO 11/01/16 09:00 12/01/16 08:59 Docusate Sodium (coLACE CAP) 100 mg QAM PO 11/01/16 09:00 12/01/16 08:59 Ibuprofen (Advil Tab) 200 mg DAILY PRN PO 11/01/16 09:00 12/01/16 08:59 Senna (Senokot Tab) 8.6 mg DAILY PO 11/01/16 09:00 12/01/16 08:59 Tamsulosin HCl (Flomax Cap) 0.4 mg DAILY PO 11/01/16 09:00 12/01/16 08:59 Tiotropium [place] (Spiriva Handihaler Inhaler) 1 puff QAM INH 11/01/16 09:00 12/01/16 08:59 Miscellaneous Information (Order Awaiting Action) 1 ea QS N/A 11/01/16 08:00 12/01/16 07:59 Pantoprazole Sodium (Protonix Tab) 40 mg QAM PO 11/01/16 09:00 12/01/16 08:59 Objective Vital Signs Date Time Temp Pulse Resp B/P (MAP) Pulse Ox O2 Delivery O2 Flow Rate FiO2 11/01/16 04:00 Room Air 11/01/16 03:42 36.5 60 15 166/87 (113) 96 Room Air 11/01/16 00:00 Room Air 11/01/16 00:00 36.7 63 15 148/79 (102) 97 Room Air 10/31/16 23:05 36.9 73 15 160/82 96 Room Air 10/31/16 22:36 72 29 95 10/31/16 22:31 139/74 10/31/16 22:21 70 22 96 10/31/16 22:19 132/68 10/31/16 22:06 70 19 95 10/31/16 22:01 132/68 10/31/16 21:51 70 18 96 10/31/16 21:50 71 10/31/16 21:36 66 96 10/31/16 21:31 116/66 10/31/16 21:21 74 132/83 97 Room Air 10/31/16 21:21 68 96 10/31/16 21:06 72 13 96 10/31/16 21:01 132/83 10/31/16 20:51 71 15 97 10/31/16 20:36 68 97 10/31/16 20:31 135/72 10/31/16 20:29 68 97 10/31/16 20:14 67 18 98 10/31/16 20:09 65 13 97 10/31/16 20:01 131/70 10/31/16 19:54 68 18 98 10/31/16 19:39 73 20 98 10/31/16 19:31 124/66 10/31/16 19:24 68 18 99 10/31/16 19:11 146/79 10/31/16 19:09 64 98 10/31/16 19:01 158/86 10/31/16 19:00 154/87 10/31/16 18:54 63 98 10/31/16 18:39 64 98 10/31/16 18:24 68 98 10/31/16 18:19 187/95 10/31/16 18:00 68 15 97 10/31/16 17:48 64 10/31/16 17:30 64 8 96 10/31/16 17:11 218/110 10/31/16 17:00 71 96 10/31/16 16:57 61 218/103 67 211/110 10/31/16 16:48 211/110 10/31/16 16:47 219/104 10/31/16 16:00 59 97 10/31/16 15:35 145/87 10/31/16 15:30 62 20 145/87 96 Room Air 10/31/16 14:30 74 15 97 10/31/16 14:14 99 Room Air 10/31/16 14:00 78 21 10/31/16 13:43 74 10/31/16 13:39 195/96 10/31/16 13:33 36.8 79 15 195/96 98 Room Air Physical Exam General Appearance: WD/WN, no apparent distress, + pertinent finding (flat facies) Eyes: normal inspection, PERRL ENT: hearing grossly normal Neck: supple, no JVD Respiratory/Chest: lungs clear, normal breath sounds, no respiratory distress Cardiovascular: regular rate, rhythm, no murmur Abdomen: normal bowel sounds, non tender, soft Extremities: non-tender, no pedal edema, + pertinent finding (mild cogwheel rigidity) Neurologic/Psychiatric: alert, normal mood/affect, oriented x 3 Skin: no rash Laboratory Results Last 24 Hours Test 10/31/16 14:00 10/31/16 16:09 10/31/16 18:00 11/01/16 07:24 White Blood Count 7.30 K/uL Red Blood Count 4.70 M/uL Hemoglobin 13.1 g/dL Hematocrit 40.0 % Mean Corpuscular Volume 85.1 fL Mean Corpuscular Hemoglobin 27.9 pg Mean Corpuscular Hemoglobin Concent 32.8 g/dl Platelet Count 253 K/uL Mean Platelet Volume 9.8 fL Neutrophils (%) (Auto) 62.2 % Lymphocytes (%) (Auto) 22.5 % Monocytes (%) (Auto) 10.4 % Eosinophils (%) (Auto) 4.2 % Basophils (%) (Auto) 0.4 % Neutrophils # (Auto) 4.54 K/uL Lymphocytes # (Auto) 1.64 K/uL Monocytes # (Auto) 0.76 K/uL Eosinophils # (Auto) 0.31 K/uL Basophils # (Auto) 0.03 K/uL RDW Standard Deviation 46.7 fL RDW Coefficient of Variation 14.9 % Immature Granulocyte % (Auto) 0.3 % Immature Granulocyte # (Auto) 0.02 K/uL Prothrombin Time 10.4 SECONDS Prothromb Time International Ratio 1.0 Activated Partial Thromboplast Time 28.0 SECONDS Partial Thromboplastin Ratio 1.1 Sodium Level 139 mmol/L Potassium Level 4.1 mmol/L Chloride Level 105 mmol/L Carbon Dioxide Level 26 mmol/L Anion Gap 8.0 mmol/L Blood Urea Nitrogen 20 mg/dl Creatinine 1.00 mg/dl Est Creatinine Clear Calc Drug Dose 63.5 ml/min Estimated GFR () 80.3 Estimated GFR (Non- 69.3 BUN/Creatinine Ratio 20.3 Random Glucose 120 mg/dl Calcium Level 8.8 mg/dl Magnesium Level 2.3 mg/dl Total Bilirubin 0.3 mg/dl Direct Bilirubin < 0.1 mg/dl Aspartate Amino Transf (AST/SGOT) 21 U/L Alanine Aminotransferase (ALT/SGPT) 26 U/L Alkaline Phosphatase 96 U/L Troponin I < 0.015 ng/ml Total Protein 7.3 gm/dl Albumin 3.9 gm/dl Lipase 104 U/L Thyroid Stimulating Hormone (TSH) 0.848 uIu/ml Bedside Lactic Acid Venous 0.68 mmol/L Urine Color YELLOW Urine Appearance CLEAR Urine pH 7.0 Urine Specific [place] 1.009 Urine Protein NEG Urine Glucose (UA) NEG Urine Ketones NEG Urine Occult Blood NEG Urine Nitrite NEG Urine Bilirubin NEG Urine Urobilinogen NEG Urine Leukocyte Esterase NEG Assessment and Plan 81 yo M with known heart disease, HTN, BPH, diplopia, and Lung Ca who presented 10/31/16 with persistent weakness - multiple etiologies ruled out, but pt may have a component of underlying Parkinson's. Weakness in extremities, decreased ability to ambulate - Infection, electrolyte abnormality, stroke, and hypothyroidism ruled out as potential etiologies - Urine culture showed multiple organisms, blood cx pending - PT/OT evaluations today, may require rehab afterwards - Need to establish baseline with family - left voicemail for daughter to return call - Continue orthostatic vitals Back pain, likely SI joint related - Piriformis stretches with PT - Voltaren gel to SI joints q4h Acute urinary retention, mac catheter placed - Likely secondary to BPH - Continue tamsulosin and dutasteride COPD: - Continue Spiriva DVT prophylaxis: SCDs Full code Disposition: Will transfer to Med/Surg today Resident Physician Supervision Note: I interviewed and examined the patient. Discussed with Dr. Joseph and agree with findings and plan as documented in the note. Any exceptions or clarifications are listed here: None Documented By: Vishnu Xiong back pain - notes in SI joint area, admits to pain across buttocks too - R worse than L. notes overall weak but back pain maybe is what put things to where it's not workable at home. all other ROS otherwise negative except for as above chidi noted nad does have a degree of diminished facial expression and slow movement/quiet speech, a degree of cogwheeling. no tremor. ost/msk - R sided buttock/pelvic muscles in region of piriformis high tone/tender/decreased ROM - muscle energy x multiple repeititions - improved ROM - pt tolerated well weakness - multifactorial? ?a degree of parkinsons - follow. may need neuro eval or therapeutic trial of sinemet. PT/OT. safe for med surg back pain - biomechanical fits well w SI pain and strain pattern pelvic somatic dysfunction - OMT as above DVT proph - add lovenox (better efficacy than mechanical) and stop SCDs (fall risk/skin breakdown risk) Resident Tracking Resident Involvement: Resident Care Provided Care Provided: Adult Hospital Medicine
[2016-11-01 07:53] LABS: BASO % 0.2 %; BASO ABS # 0.02 K/uL (0-0.2); COMPLETE YES; EOS % 4.4 %; HEMATOCRIT 40.2 % (42-52); IG% 0.3 %; LYMPH % 16.7 %; MEAN CORPUSCULAR HEMOGLOBIN 27.1 pg (25-34); MEAN CORPUSCULAR HGB CONC 31.8 g/dl (32-36); MEAN PLATELET VOLUME 9.6 fL (7.4-10.4); MONO % 10.7 %; NEUT % 67.7 %; PLATELET COUNT 261 K/uL (130-400); RED BLOOD COUNT 4.73 M/uL (4.7-6.1); WHITE BLOOD COUNT 9.59 K/uL (4.8-10.8)
[2016-11-01] MEDS: ACETAMINOPHEN 325 MG TAB PO PRN (08:02)
[2016-11-01] MEDS: SODIUM CHLORIDE 0.9% 1000ML 1,000 ML IV SCH ×2 (08:05→18:20)
[2016-11-01] MEDS: SENNA 8.6 MG TAB PO SCH (08:13)
[2016-11-01] MEDS: TIOTROPIUM BROMIDE 5 PUFF/90 MCG INH INH SCH (08:14)
[2016-11-01] MEDS: PANTOprazole SOD 40 MG TAB PO SCH (08:14)
[2016-11-01] MEDS: ASPIRIN 81 MG ECTAB PO SCH (08:14)
[2016-11-01] MEDS: TAMSULOSIN HCL 0.4 MG CAP PO SCH (08:14)
[2016-11-01] MEDS: DOCUSATE SODIUM 100 MG CAP PO SCH (08:15)
[2016-11-01 08:20] LABS: BUN/CREATININE RATIO 16.6 (10-20); CALCIUM 8.5 mg/dl (8.5-10.1); CREATININE 0.99 mg/dl (0.60-1.40)
[2016-11-01] MEDS ORDERED: IBUPROFEN 200 MG TAB PO PRN (09:00)
[2016-11-01] MEDS: AVODART~ORDER AWAITING ACTION SCH ×3 (10:37→23:39)
[2016-11-01] MEDS: DICLOFENAC SOD 1% GEL 100 GM TUBE EXT SCH ×4 (13:25→23:38)
[2016-11-01] MEDS ORDERED: NURSING VERBAL MED ORDER STA (15:49)
[2016-11-01] MEDS ORDERED: HydrALAZINE HCL 20 MG/ML VIAL IV. ONE (16:15)
[2016-11-01] MEDS ORDERED: NURSING VERBAL MED ORDER ONE (17:15)
[2016-11-01] MEDS ORDERED: HydrALAZINE HCL 20 MG/ML VIAL IV. PRN (17:30)
[2016-11-02] MEDS: DICLOFENAC SOD 1% GEL 100 GM TUBE EXT SCH ×4 (04:00→16:34)
[2016-11-02] MEDS: SODIUM CHLORIDE 0.9% 1000ML 1,000 ML IV SCH ×2 (04:35→14:35)
[2016-11-02 07:09] VITALS: BP 173/83; PULSE 57; TEMP 36.6; O2SAT 96
[2016-11-02] MEDS: TIOTROPIUM BROMIDE 5 PUFF/90 MCG INH INH SCH (07:44)
[2016-11-02] MEDS: SENNA 8.6 MG TAB PO SCH (07:45)
[2016-11-02] MEDS: PANTOprazole SOD 40 MG TAB PO SCH (07:45)
[2016-11-02] MEDS: TAMSULOSIN HCL 0.4 MG CAP PO SCH (07:45)
[2016-11-02] MEDS: ASPIRIN 81 MG ECTAB PO SCH (07:45)
[2016-11-02] MEDS: DOCUSATE SODIUM 100 MG CAP PO SCH (07:45)
[2016-11-02] MEDS: ACETAMINOPHEN 325 MG TAB PO PRN (07:46)
[2016-11-02] MEDS ORDERED: DUTASTERIDE 0.5MG PO SCH ×2 (09:00)
[2016-11-02] MEDS ORDERED: ENOXAPARIN 40 MG/0.4 ML SYR SQ SCH (09:00)
[2016-11-02] MEDS ORDERED: CARBIDOPA/LEVODOPA 25/100MG TAB PO ONE (09:00)
[2016-11-02] MEDS ORDERED: LISINOPRIL 2.5 MG TAB PO ONE (12:21)
--- NOTE | 2016-11-02 12:47 | Family Medicine Progress Note ---
Progress Note Date of Service Nov 02, 2016. Assessment and Plan Lisinopril 2.5mg daily started Sinemet started - good effect within 1-2 hours, will add for TID dosing Potential DC to [facility], pending bed availability
[2016-11-02] MEDS ORDERED: LSN5 PO (13:37)
[2016-11-02] MEDS ORDERED: SNM/25100 PO ×2 (13:37)
--- NOTE | 2016-11-02 13:42 | Discharge Instructions ---
Discharge Instructions Date of Service Nov 02, 2016. Admission Reason for Admission: Generalized Weakness Discharge Discharge Diagnosis / Problem: Weakness, Parkinson's Disease, Hypertension Discharge Goals Goal(s): Improve function, Improve disease control Activity Recommendations Activity Level: OOB In Chair Therapies: Physical Therapy, Occupational Therapy, Speech Therapy . Additional Information Patient informed of condition: Yes Advance Directives: No DNR: No Level of Care: Acute Rehab Communicable Disease: No Prognosis: Improving Edmondson Catheter: No Instructions / Follow-Up Instructions / Follow-Up Mr Chiang was admitted for generalized weakness. Issues: 1 - Ambulatory disfunction - no cause identified for his acute decline, however it was noted he has some SI joint disfunction, and Voltaren gel was applied to this q4h which helped. 2 - Parkinson's Disease - he has not been seen by Neurology but does have bradykinesia and cogwheel rigidity. He was started on Sinemet and improved with this. 3 - HTN - In past, his BP was not treated due to bottoming out with any BP meds. He was provided with 2.5mg Hydralazine IV which brought his pressures from the 200's to 160's systolic. We had started him on Lisinopril 2.5mg, as we would like to avoid all vasodilators / diuretics / beta blockers. After this, his blood pressure dropped to 111/69. He was not symptomatic, but would closely monitor his BP - we have stopped the Lisinopril. 4 - Acute urinary retention on arrival - Edmondson was inserted during admission Current Hospital Diet Patient's current hospital diet: Regular Diet Discharge Diet Recommended Diet: Regular Diet Pending Studies Studies pending at discharge: no Medical Emergencies . Who to Call and When: Medical Emergencies: If at any time you feel your situation is an emergency, please call 911 immediately. . Non-Emergent Contact Non-Emergency issues call your: Primary Care Provider . . "Provider Documentation" section prepared by Queta Joseph. . Core Measure Problem Core Measures: None
[2016-11-02 13:49] VITALS: BP 111/65; PULSE 76
--- NOTE | 2016-11-02 13:50 | Discharge Summary ---
Discharge Summary Date of Service Nov 02, 2016. (Queta Joseph MD) Discharge Summary Admission Date: Oct 31, 2016 at 21:16 Discharge Date: Nov 02, 2016 Discharge Disposition: Rehab Principal Diagnosis: Ambulatory disfunction, Weakness Problems/Secondary Diagnoses: SI Joint disturbance, Parkinson's Disease, Hypertension Immunizations: Tetanus Immunization Date: Sep 22, 2013 Procedures: HEAD CT on arrival: IMPRESSION: There is no hemorrhage, mass effect, or evidence of acute territorial ischemia by CT criteria. CXR : Cardiomegaly and advanced emphysema. No acute cardiopulmonary abnormality is seen. (Queta Joseph MD) Medication Reconciliation New Medications: Levodopa/Carbidopa (Sinemet 25MG/100MG) 1 Ea Tab 1 TAB PO TID for 30 Days, #90 TAB Continued Medications: Aspirin (Aspirin 81) 81 Mg Tab 81 MG PO QAM Cholecalciferol (Vitamin D3) 1,000 Unit Tab 1 TAB PO QAM Cyanocobalamin (Vitamin B-12) 1,000 Mcg Sub 1000 MCG PO QAM Docusate Sodium (Colace) 100 Mg Cap 100 MG PO QAM Dutasteride (Dutasteride) 0.5 Mg Cap 1 TAB PO QAM Ibuprofen Tab (Advil) 200 Mg Tab 200 MG PO UD Iron-Vitamin C (Vitron-C) 1 Tab Tab 1 TAB PO QAM Omeprazole (Omeprazole) 20 Mg Tab 1 TAB PO QAM Senna (Senokot) 8.6 Mg Tab 8.6 MG PO DAILY Tamsulosin HCl (Tamsulosin HCl) 0.4 Mg Cap 0.4 MG PO DAILY Tiotropium [place] (Spiriva Handihaler) 30 Puff/540 Mcg Aerp 1 CAP INH QAM Discharge Exam Review of Systems: Constitutional: + weakness, No fever, No chills, No sweats Eyes: No worsening of vision ENT: + hearing loss Respiratory: No cough, No sputum, No shortness of breath Cardiovascular: No chest pain, No orthopnea Abdomen: No pain, No nausea, No vomiting Musculoskeletal: No joint pain, No muscle pain Genitourinary - Male: + urinary retention (on arrival), No hematuria, No urinary urgency, No urinary hesitancy Neurologic: No memory loss, No paralysis, No weakness Psychiatric: No depression symptoms, No anhedonism Endocrine: No fatigue Hematologic / Lymphatic: No abnormal bleeding/bruising Integumentary: No rash Physical Exam: General Appearance: WD/WN, no apparent distress Eyes: normal inspection, PERRL ENT: hearing grossly normal Neck: supple, no JVD Respiratory/Chest: lungs clear, normal breath sounds, no respiratory distress Cardiovascular: regular rate, rhythm, no murmur, normal peripheral pulses Abdomen / GI: normal bowel sounds, non tender, soft Extremities: no calf tenderness, no pedal edema Neurologic/Psychiatric: alert, normal mood/affect, normal reflexes, oriented x 3 Skin: no rash Lymphatic: no adenopathy (Queta Joseph MD) Hospital Course HPI: 81-year-old male with past medical history of BPH, diplopia, hypertension, lung cancer, heart disease presented to the ER with complaints of persistent weakness that started this morning. Per patient, he was feeling fine this morning until after 11 AM . He stated that he woke up from his nap and felt very weak and fatigued. He complained about urinary retention and was not able to void. Denied dysuria, hematuria but complained about hesitancy and urinary retention. denied abdominal pain, nausea, vomiting or diarrhea Denied any chest pain, shortness of breath, palpitations. Denied new onset numbness or tingling or motor weakness. He has a chronic history of diplopia. HOSPITAL COURSE: Weakness in extremities, decreased ability to ambulate - Infection, electrolyte abnormality, stroke, and hypothyroidism ruled out as potential etiologies - Urine culture showed multiple organisms, blood cx negative x 48 hours - PT/OT evaluations completed, would benefit from rehab Parkinson's-like features (bradykinesia, flat facies, cogwheel rigidity, mild intention tremor) - Started on Sinemet 25/100 mg TID, showed good response after first dose - Will defer to PCP to manage. Neuro has not been consulted at this point. Hypertension - BP's labile - were up to systolics of 200 - 210, improved to 160's with 2.5mg IV hydralazine - Was started on Lisinopril 2.5mg daily, then his pressure went to 111/69 very rapidly. Lisinopril was stopped. Please continue to monitor - In past, pt would drop to low BP's after any anti-hypertensives. Recommend avoiding other diuretic / vasodilator / beta fabiana use. Back pain, likely SI joint related - Piriformis stretches with PT - Voltaren gel to SI joints q4h Acute urinary retention, mac catheter placed during admission - Likely secondary to BPH - Continue tamsulosin and dutasteride COPD - Continue Spiriva DVT prophylaxis: Lovenox Full code Disposition: Accepted to [facility] for rehab. Was discharged 11/02/16 in good condition Total Time Spent: Greater than 30 minutes This includes examination of the patient, discharge planning, medication reconciliation, and communication with other providers. (Queta Joseph MD) Resident Physician Supervision Note: I interviewed and examined the patient. Discussed with Dr. Joseph and agree with findings and plan as documented in the note. Any exceptions or clarifications are listed here: None Documented By: Vishnu Xiong wants to go to rehab. notes PCP also thought he had parkinsons. feeling better after trial dose of sinemet. all other ROS otherwise negative except for as above vitals noted nad breathing unlabored no pallor or icterus, ongoing cogwheeling but less bradykinesia and less quiet speech weakness - multifactorial w SI / low back strain and parkinsons likely contributing -- for rehab probable parkinsons - PCP felt this too - started sinemet and tolerating well ( notes PCP starting something that didn't sit well so he stopped it) - continue for now, ongoing management / titration at [facility], consult neuro if necessary. PCP f/u after discharge stable for trasnfer to rehab (Vishnu Xiong, D.O.) Discharge Instructions Please refer to the electronic Patient Visit Report (Discharge Instructions) for additional information. (Queta Joseph MD) Follow-Up - with physician at [facility] - with PCP afterwards - may need Neuro outpatient appt for Parkinson's evaluation (Queta Joseph MD) Additional Copies To RV. Garcia MD Resident Tracking Resident Involvement: Resident Care Provided Care Provided: Adult Hospital Medicine (Queta Joseph MD)
[2016-11-02] MEDS ORDERED: CARBIDOPA/LEVODOPA 25/100MG TAB PO SCH (14:00)
[2016-11-02 14:41] VITALS: BP 127/66
[2016-11-02 14:43] VITALS: BP 111/65; PULSE 76; TEMP 36.6; O2SAT 96
[2016-11-02 15:16] VITALS: BP 156/77; PULSE 61; TEMP 36.7; O2SAT 98
[2016-11-03] MEDS ORDERED: LISINOPRIL 2.5 MG TAB PO SCH (09:00)
[2016-11-03] MEDS ORDERED: ENOX40IN SQ (13:11)
[2016-11-03] MEDS ORDERED: PANT1TAB48 PO (13:11)
[2016-11-03] MEDS ORDERED: ACET-1256 PO (13:11)
[2016-11-03] MEDS ORDERED: MOML PO (13:11)
[2016-11-03] MEDS ORDERED: POLY335019 PO (13:11)
[2016-11-03] MEDS ORDERED: MULT-845 PEG (13:11)
[2016-11-03] MEDS ORDERED: UMEC1INH INH (13:11)
== END 2016-11-02 16:58 | DRG 57 ==
LOC: EDBD 13:30 → C.EDC 13:31 → C.2T 21:16 → ENRESERV 21:48 → C.MS2W 11-01 10:22
PROVIDERS: ADMIT Family Medicine; ATTEND Family Medicine
PROC: 0T9B70Z Drainage of Bladder with Drainage Device, Via Natural or Artificial Opening (ICD-10-PCS; principal; 2016-10-31)
DX: G20 Parkinson's disease (principal); C34.90 Malignant neoplasm of unspecified part of unspecified bronchus or lung; N40.1 Benign prostatic hyperplasia with lower urinary tract symptoms; R33.9 Retention of urine, unspecified; I10 Essential (primary) hypertension; J44.9 Chronic obstructive pulmonary disease, unspecified; R26.89 Other abnormalities of gait and mobility; M53.3 Sacrococcygeal disorders, not elsewhere classified; R53.81 Other malaise; H53.2 Diplopia; Z79.82 Long term (current) use of aspirin; Z79.899 Other long term (current) drug therapy; Z87.891 Personal history of nicotine dependence; Z79.1 Long term (current) use of non-steroidal anti-inflammatories (NSAID)

== ENCOUNTER 2016-11-03 11:24 | Emergency (ER) | payer OTHER, BC ==
[~2016-11-03] VITALS: Ht 177.8 cm; Wt 92.1 kg
[~2016-11-03 11:24] MED LIST changes: +IBUP-103 PO; +LSN5 PO; +SNM/25100 PO
[2016-11-03 11:31] VITALS: Ht 177.8 cm; Wt 92.1 kg
[2016-11-03] MEDS ORDERED: SODIUM CHLORIDE 0.9% 1000ML 1,000 ML IV STA (11:31)
[2016-11-03 11:40] VITALS: O2SAT 99
[2016-11-03 12:15] LABS: BASO % 0.2 %; BASO ABS # 0.02 K/uL (0-0.2); COMPLETE YES; EOS % 3.3 %; HEMATOCRIT 36.6 % (42-52); IG% 0.4 %; LYMPH % 16.6 %; LYMPH ABS # 1.34 K/uL (1.2-3.4); MEAN CELL VOLUME 84.7 fL (80-100); MEAN CORPUSCULAR HEMOGLOBIN 28.5 pg (25-34); MEAN CORPUSCULAR HGB CONC 33.6 g/dl (32-36); MEAN PLATELET VOLUME 9.5 fL (7.4-10.4); MONO % 11.1 %; NEUT % 68.4 %; PLATELET COUNT 251 K/uL (130-400); RED BLOOD COUNT 4.32 M/uL (4.7-6.1); WHITE BLOOD COUNT 8.09 K/uL (4.8-10.8)
[2016-11-03 12:18] LABS: PARTIAL THROMBOPLASTIN RATIO 1.1; PROTHROMBIN TIME (PATIENT) 10.7 SECONDS (9.0-12.0)
[2016-11-03 12:26] LABS: ALT/SGPT 24 U/L (12-78); AST/SGOT 19 U/L (15-37); BLOOD UREA NITROGEN 16 mg/dl (7-18); BUN/CREATININE RATIO 14.6 (10-20); CALCIUM 8.4 mg/dl (8.5-10.1); CARBON DIOXIDE 25 mmol/L (21-32); CHLORIDE 109 mmol/L (98-107); GLUCOSE 86 mg/dl (70-99); MAGNESIUM 2.2 mg/dl (1.8-2.4); POTASSIUM 3.8 mmol/L (3.5-5.1); SODIUM 141 mmol/L (136-145)
[2016-11-03 12:36] LABS: ALKALINE PHOSPHATASE 80 U/L (45-117); CKMB/CK RATIO 1.6 (0-3.0)
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
[2016-11-03 13:08] LABS: URINE APPEARANCE CLEAR (CLEAR); URINE BILIRUBIN NEG (NEG); URINE COLOR YELLOW; URINE NITRITE NEG (NEG); URINE PH 6.5 (4.5-7.5); URINE SPECIFIC GRAVITY 1.015 (1.000-1.030); UROBILINOGEN NEG (NEG)
[2016-11-03] MEDS ORDERED: POLY335019 PO (13:11)
[2016-11-03] MEDS ORDERED: MULT-845 PEG (13:11)
[2016-11-03] MEDS ORDERED: UMEC1INH INH (13:11)
[2016-11-03] MEDS ORDERED: ACET-1256 PO (13:11)
[2016-11-03] MEDS ORDERED: MOML PO (13:11)
[2016-11-03] MEDS ORDERED: ENOX40IN SQ (13:11)
[2016-11-03] MEDS ORDERED: PANT1TAB48 PO (13:11)
[2016-11-03 13:13] LABS: MANUAL MICROSCOPIC REQUIRED? NO; REVIEW REQ? NO
[2016-11-03 14:09] VITALS: BP 187/97; PULSE 61; O2SAT 99
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
== END 2016-11-03 14:25 | disposition home or self-care (01) ==
LOC: EDBD 11:24 → C.EDC 11:25
DX: R53.1 Weakness (principal); W19.XXXA Unspecified fall, initial encounter; I44.0 Atrioventricular block, first degree; I10 Essential (primary) hypertension; I51.9 Heart disease, unspecified; Z87.820 Personal history of traumatic brain injury; Z87.828 Personal history of other (healed) physical injury and trauma; Z86.19 Personal history of other infectious and parasitic diseases; Z85.118 Personal history of other malignant neoplasm of bronchus and lung; Z79.82 Long term (current) use of aspirin; Z79.899 Other long term (current) drug therapy; Z83.3 Family history of diabetes mellitus; Z82.49 Family history of ischemic heart disease and other diseases of the circulatory system

== ENCOUNTER 2016-11-09 08:41 | Observation (INO) | payer OTHER, BC ==
[2016-11-09] VITALS (7 sets, daily range): BP systolic 113–148; BP diastolic 69–85; PULSE 68–85; TEMP 36.4–36.9; O2SAT 96–99; Ht 177.8 cm; Wt 88.5 kg
[~2016-11-09] VITALS: Ht 177.8 cm; Wt 88.5 kg
[~2016-11-09 08:41] MED LIST changes: +ACET-1256 PO; +ENOX40IN SQ; -FERRTAB18 PO; -LSN5 PO; +MOML PO; +MULT-845 PEG; -OMEP20TA PO; +PANT1TAB48 PO; +POLY335019 PO; -SNM/25100 PO; -SPRIN/30 INH; +UMEC1INH INH
[2016-11-09] MEDS ORDERED: SODIUM CHLORIDE 0.9% 1000ML 1,000 ML IV STA (09:01)
[2016-11-09 09:15] LABS: BASO % 0.3 %; BASO ABS # 0.02 K/uL (0-0.2); COMPLETE YES; EOS % 7.5 %; HEMATOCRIT 38.9 % (42-52); IG% 0.5 %; LYMPH % 24.6 %; LYMPH ABS # 1.79 K/uL (1.2-3.4); MEAN CELL VOLUME 85.9 fL (80-100); MEAN CORPUSCULAR HEMOGLOBIN 28.3 pg (25-34); MEAN CORPUSCULAR HGB CONC 32.9 g/dl (32-36); MEAN PLATELET VOLUME 10.1 fL (7.4-10.4); MONO % 11.2 %; NEUT % 55.9 %; PLATELET COUNT 275 K/uL (130-400); RED BLOOD COUNT 4.53 M/uL (4.7-6.1); WHITE BLOOD COUNT 7.29 K/uL (4.8-10.8)
--- NOTE | 2016-11-09 09:26 | DIAGNOSTIC IMAGING REPORT ---
CHEST ONE VIEW PORTABLE CLINICAL HISTORY: 81 years-old Male presenting with CHEST PAIN. TECHNIQUE: Portable upright AP view of the chest was obtained. COMPARISON: 10/31/2016. FINDINGS: The patient is ARABIC rotated. Persistent prominence of the cardiomediastinal silhouette. Prominent pulmonary vasculature. 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 No focal infiltrate. No large effusion or pneumothorax. Degenerative changes of the thoracic spine. Irregularity of the right lateral fifth and sixth ribs, consistent with rib fractures. Upper abdomen normal. IMPRESSION: 1. Cardiomegaly. No mita pulmonary edema. 2. Fractures of the right lateral fifth and sixth ribs, age indeterminate. Electronically signed by: Frank Marsh M.D. 11/09/2016 9:24 AM Dictated Date/Time: 11/09/2016 9:20 AM
[2016-11-09 09:33] LABS: ALT/SGPT 11 U/L (12-78); BLOOD UREA NITROGEN 20 mg/dl (7-18); BUN/CREATININE RATIO 18.3 (10-20); CARBON DIOXIDE 30 mmol/L (21-32); CHLORIDE 106 mmol/L (98-107); GLUCOSE 97 mg/dl (70-99); POTASSIUM 4.5 mmol/L (3.5-5.1); SODIUM 141 mmol/L (136-145)
[2016-11-09] MEDS ORDERED: CARB25TA16 PO (09:34)
[2016-11-09 09:36] LABS: ALKALINE PHOSPHATASE 93 U/L (45-117); AST/SGOT 19 U/L (15-37)
[2016-11-09] MEDS ORDERED: POLYETHYLENE (MIRALAX) 17 GM PACK PO PRN (11:00)
[2016-11-09] MEDS ORDERED: IBUPROFEN 800 MG TAB PO PRN (11:00)
[2016-11-09] MEDS ORDERED: ALUMINUM/MAGNESIUM/SIMETH (MAALOX MAX) 30 ML UDC PO PRN (11:00)
[2016-11-09] MEDS ORDERED: MAGNESIUM HYDROXIDE SUSP 30 ML UDC PO PRN ×2 (11:00)
[2016-11-09] MEDS ORDERED: NITROGLYCERIN 0.4 MG SL PER TAB CHARGE SL PRN (11:00)
[2016-11-09] MEDS ORDERED: ACETAMINOPHEN 325 MG TAB PO PRN (11:00)
[2016-11-09] MEDS ORDERED: ONDANSETRON INJ 2 MG/ML 2 ML VIAL IV PRN (11:00)
[2016-11-09] MEDS ORDERED: HydrALAZINE HCL 20 MG/ML VIAL ONE (11:27)
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
[2016-11-09] MEDS ORDERED: HydrALAZINE HCL 20 MG/ML VIAL IV. PRN (11:30)
[2016-11-09] MEDS ORDERED: IV FLUIDS COMPLETED PRN (12:15)
[2016-11-09] MEDS: CARBIDOPA/LEVODOPA 25/100MG EXT REL TAB PO SCH ×2 (12:49→21:19)
[2016-11-09] MEDS: DOCUSATE SODIUM 100 MG CAP PO SCH (12:49)
[2016-11-09] MEDS: SENNA 8.6 MG TAB PO SCH (12:49)
[2016-11-09] MEDS: DUTASTERIDE SCH ×2 (15:16→23:44)
--- NOTE | 2016-11-09 16:06 | EMERGENCY ROOM VISIT NOTE ---
ED Visit Note First contact with patient: 08:48 Chief Complaint: Chest pain. History of Present Illness: Mr. Chiang is a 81 year-old white male who is brought to the ED via ambulance. [facility] He has been [facility] for approximately one week after being discharged from this hospital with generalized weakness. Historically patient has a history of paroxysmal atrial fibrillation, coronary artery disease with 3 stent placements in 2004, hypertension, dyslipidemia, Parkinson's disease, chronic anemia, COPD and lung cancer. According to the patient and the transfer notes from [facility] patient was standing and waiting for physical therapy this morning at approximately 7:15 and developed an acute onset of right sided chest pain. He reports the pain was located between the sternum and his right nipple. He describes his pain as "chcf between sharp and achy." He rated his discomfort at onset 7/10. His pain was nonradiating. He was given one sublingual nitroglycerin tablet and 324 mg of aspirin which decreased his pain but he does not remember the rating at that time. EMS was activated and he was transported to the ED for further evaluation and care. During transport he was given a second dose of nitroglycerin spray and he reported resolution of his chest discomfort. EMS reports patient was stable since that time. An EKG performed at [facility] revealed normal sinus rhythm with ST changes. On my initial evaluation when he arrived in the emergency department patient reports he was pain and symptom-free. He denied headache, dizziness, lightheadedness, chest pain, palpitations, orthopnea, dependent edema, shortness of breath, cough, wheezing, abdominal pain , back pain, nausea/vomiting, leg weakness/numbness/tingling, recent diarrhea, urinary symptoms, hematuria, black/tarry stools. Review of Systems: As noted above in History of Present Illness; all body systems were reviewed with the patient and found to be negative unless noted above otherwise. Review of Systems: As noted above in history of present illness. All body systems were reviewed and found to be negative as noted above. Past Medical History: As previously noted, benign prostatic hypertrophy, diplopia, COPD, GERD, sinusitis, orthostatic hypotension. Current Medications: Medications Dose Route/Sig Max Daily Dose Days Date Category Dose Instructions Carbidopa/Levodopa Sr 25-100 mg (Carbidopa/Levodopa) 1 Tab Tabcr 1 Tab PO TID 11/09/16 Reported Milk Of Magnesia (Magnesium Hydroxide) 30 Ml Susp 30 Ml PO DAILY PRN 11/03/16 Reported IF NO BM OR CONSTIPATION PAST 1 DAY Tylenol (Acetaminophen) 500 Mg Tab 1,000 Mg PO Q4H PRN 11/03/16 Reported MAX 3GM COMBINED TOTAL APAP/ 24 HOURS USE PRN FOR MILD PAIN 1-3 OR FEVER >101F Lovenox (Enoxaparin Sodium) 40 Mg/0.4 Ml Inj 0.4 Ml SQ DAILY@1900 10 11/03/16 Reported Incruse Ellipta (Umeclidinium [place]) 62.5 Mcg/Inh Inh 1 Inha INH DAILY 11/03/16 Reported Miralax (Polyethylene Glycol 3350) 1 Pow Pow 17 Gm PO DAILY@1200 11/03/16 Reported Protonix (Pantoprazole) 40 Mg Tab 40 Mg PO DAILY@1630 11/03/16 Reported Centrum Silver Adult 50+ (Multiple Vitamins W/ Minerals) 1 Tab Tab 1 Tab PEG DAILY 11/03/16 Reported TAKE WITH BREAKFAST Advil (Ibuprofen) 200 Mg Tab 200 Mg PO QAM 10/31/16 Reported Dutasteride 0.5 Mg Cap 1 Tab PO DAILY@1700 07/07/16 Reported Vitamin D3 (Cholecalciferol) 1,000 Unit Tab 1 Tab PO QAM 07/07/16 Reported Senokot (Senna) 8.6 Mg Tab 8.6 Mg PO DAILY@1200 12/01/14 Reported Tamsulosin HCl 0.4 Mg Cap 0.4 Mg PO HS 10/28/14 Reported Aspirin 81 (Aspirin) 81 Mg Tab 81 Mg PO QAM 09/25/14 Reported Colace (Docusate Sodium) 100 Mg Cap 100 Mg PO DAILY@1200 01/05/14 Reported Allergies to Medications: Patient denies and none are reported and his medical records. Social History: Patient is currently retired; he feels safe in his home environment; he denies tobacco use and admits that he is former smoker. Physical Examination: Vital Signs: Date Time Temp Pulse Resp B/P (MAP) Pulse Ox O2 Delivery O2 Flow Rate FiO2 11/09/16 10:51 65 161/96 11/09/16 10:38 66 197/106 11/09/16 09:42 58 16 133/78 91 Room Air 11/09/16 08:50 65 11/09/16 08:47 69 16 133/81 98 Room Air 11/09/16 08:47 97 Room Air GENERAL: 81-year-old male in no acute distress, chronically ill-appearing and hemodynamically stable. NEUROLOGICAL: Awake, alert and oriented to person, place and time. Answering questions appropriately and following commands. Good hand eye coordination. Tremor identified. SKIN: Warm, dry and pink. No soft tissue eruptions or trauma noted. HEENT: Atraumatic and normocephalic. PERRLA. Sclera white and conjunctiva pink. Oral cavity moist and pink. Pharynx is nonerythematous or edematous. Speech normal. No lymphadenopathy. Trachea midline. No jugular venous distention. BACK: No tenderness over the bony spine. No CVA tenderness. THORAX: Lungs sounds are clear to auscultation and equal bilaterally with symmetrical chest wall. No wheezing, rales or rhonchi. No crepitus, tenderness , subcutaneous air or deformities noted. HEART: Regular rate and rhythm. Systolic murmur appreciated over the left sternal border. No gallops or rubs. No lifts, heaves or thrills. PMI is not displaced. ABDOMEN: Flat, soft and nontender. Positive bowel sounds in all quadrants. No guarding, rigidity or organomegaly. EXTREMITIES: Moves all extremities well on command and with purpose. All distal neurovascular statuses are intact and equal bilaterally. No dependent edema or calf tenderness/cords. ED Course: Patient is assessed as noted above. Laboratory Testing: Test 11/09/16 08:15 11/09/16 09:11 Range/Units White Blood Count 7.29 4.8-10.8 K/uL Red Blood Count 4.53 4.7-6.1 M/uL Hemoglobin 12.8 14.0-18.0 g/dL Hematocrit 38.9 42-52 % Mean Corpuscular Volume 85.9 80-100 fL Mean Corpuscular Hemoglobin 28.3 25-34 pg Mean Corpuscular Hemoglobin Concent 32.9 32-36 g/dl Platelet Count 275 130-400 K/uL Mean Platelet Volume 10.1 7.4-10.4 fL Neutrophils (%) (Auto) 55.9 % Lymphocytes (%) (Auto) 24.6 % Monocytes (%) (Auto) 11.2 % Eosinophils (%) (Auto) 7.5 % Basophils (%) (Auto) 0.3 % Neutrophils # (Auto) 4.07 1.4-6.5 K/uL Lymphocytes # (Auto) 1.79 1.2-3.4 K/uL Monocytes # (Auto) 0.82 0.11-0.59 K/uL Eosinophils # (Auto) 0.55 0-0.5 K/uL Basophils # (Auto) 0.02 0-0.2 K/uL RDW Standard Deviation 47.9 36.4-46.3 fL RDW Coefficient of Variation 15.1 11.5-14.5 % Immature Granulocyte % (Auto) 0.5 % Immature Granulocyte # (Auto) 0.04 0.00-0.02 K/uL Sodium Level 141 136-145 mmol/L Potassium Level 4.5 3.5-5.1 mmol/L Chloride Level 106 98-107 mmol/L Carbon Dioxide Level 30 21-32 mmol/L Anion Gap 5.0 3-11 mmol/L Blood Urea Nitrogen 20 7-18 mg/dl Creatinine 1.10 0.60-1.40 mg/dl Estimated GFR () 71.6 Estimated GFR (Non- 61.8 BUN/Creatinine Ratio 18.3 10-20 Random Glucose 97 70-99 mg/dl Calcium Level 9.0 8.5-10.1 mg/dl Total Bilirubin 0.4 0.2-1 mg/dl Direct Bilirubin < 0.1 0-0.2 mg/dl Aspartate Amino Transf (AST/SGOT) 19 15-37 U/L Alanine Aminotransferase (ALT/SGPT) 11 12-78 U/L Alkaline Phosphatase 93 45-117 U/L Total Protein 7.1 6.4-8.2 gm/dl Albumin 3.7 3.4-5.0 gm/dl Lipase 97 73-393 U/L Bedside Troponin I < 0.030 0-0.045 ng/ml EKG: Shows normal sinus rhythm with a ventricular rate of 66 bpm elevations of the ST segment in leads V1 through [address] inversion in leads 1, aVL and V6. Compared to November 03 above changes were noted. Chest x-ray: Cardiomegaly with no mita pulmonary edema and fractures of the right lateral fifth and sixth ribs of undetermined age. Patient was hydrated with normal saline Patient was reassessed multiple times during his stay in the emergency department. Patient's case was reviewed with Dr. Hollins; in apparently assessed the patient we agreed on diagnostic approach, treatment, disposition and plan. Patient's case was consulted with case management and Dr. Siu, hospitalist, for medical observation/admission. Dr. Siu requested that I contact cardiology and spoke with Dr. Castro; he reported he reviewed the patient's EKG and records and discussed the patient with Dr. Siu. Patient was educated about today's finding. Clinical Impression: Acute chest pain. EKG changes. Decision-Making: Initially my differential diagnosis I considered acute coronary syndrome, thoracic aneurysm, pneumothorax, pneumonia, musculoskeletal orders and other causes. Disposition and Plan: Patient to be brought in the hospital for further evaluation and care for his symptoms by the hospitalist; please see their notes and orders for final disposition and plan.
[2016-11-09] MEDS: PANTOprazole SOD 40 MG TAB PO SCH (16:07)
[2016-11-09] MEDS ORDERED: DUTASTERIDE PO SCH (17:00)
--- NOTE | 2016-11-09 17:11 | ECHOCARDIOGRAM REPORT ---
*NOTICE TO RECEIVING CONSTITUTION PARTY AGENCY This information is strictly Confidential and protected under [place] law. [place] law prohibits you from making any further disclosure of this information unless further disclosure is expressly permitted by the written consent of the person to whom it pertains or is authorized by law. A general authorization for the release of medical or other information is not sufficient for this purpose. Hospital accepts no responsibility if the information is made available to any other person, INCLUDING THE PATIENT. Interpretation Summary * Name: DANNA JONES Study Date: 11/09/2016 02:52 PM BP: 127/85 mmHg * Patient Location: C.2T\S\S239\S\1 HR: 68 * : 1935 (M/d/yyyy) Gender: Male Height: 70 in * Age: 81 yrs Ethnicity: CA Weight: 207 lb * Ordering Physician: Shanique Sampson * Referring Physician: Self, Referred * Performed By: Roxanne Bay, [facility] * * Reason For Study: CHEST PAIN * BSA: 2.1 m2 * -- Conclusions -- * There is mild concentric left ventricular hypertrophy. * Left ventricular systolic function is normal. * Grade I diastolic dysfunction, (abnormal relaxation pattern). * Mild aortic regurgitation. * Moderate valvular aortic stenosis. * Small pericardial effusion. * Compared to a study from 01/2016, there has been progression in the degree of aortic stenosis Procedure Details * A complete two-dimensional transthoracic echocardiogram was performed (2D, M-mode, Doppler and color flow Doppler). Left Ventricle * The left ventricle is normal in size. * There is mild concentric left ventricular hypertrophy. * Left ventricular systolic function is normal. * Ejection Fraction = 55-60%. * Grade I diastolic dysfunction, (abnormal relaxation pattern). Right Ventricle * The right ventricle is normal in size and function. Atria * The left atrial size is normal. * Right atrial size is normal. Mitral Valve * The mitral valve is grossly normal. * Significant mitral regurgitation is absent. Tricuspid Valve * The tricuspid valve anatomy is normal. * Significant tricuspid regurgitation is absent. Aortic Valve * The aortic valve is trileaflet. * Moderate valvular aortic stenosis. * Mild aortic regurgitation. Great Vessels * The aortic root is normal size. Pericardium/Pleural * Small pericardial effusion. MMode 2D Measurements and Calculations IVSd 1.8 cm IVSs 2.1 cm LVIDd 3.2 cm LVIDs 2.5 cm LVPWd 1.3 cm LVPWs 1.7 cm IVS/LVPW 1.4 FS 22.0 % EDV(Teich) 42.0 ml ESV(Teich) 22.8 ml EF(Teich) 45.7 % EDV(cubed) 33.8 ml ESV(cubed) 16.0 ml EF(cubed) 52.5 % % IVS thick 19.2 % % LVPW thick 32.0 % LV mass(C)d 178.2 grams LV mass(C)dI 84.2 grams/m\S\2 LV mass(C)s 196.5 grams LV mass(C)sI 92.8 grams/m\S\2 SV(Teich) 19.2 ml SI(Teich) 9.1 ml/m\S\2 SV(cubed) 17.8 ml SI(cubed) 8.4 ml/m\S\2 Ao root diam 3.2 cm Ao root area 7.9 cm\S\2 LA dimension 3.2 cm LA/Ao 1.0 LVOT diam 2.0 cm LVOT area 3.2 cm\S\2 LVAd ap4 33.4 cm\S\2 LVLd ap4 9.1 cm EDV(MOD-sp4) 100.0 ml EDV(sp4-el) 103.5 ml LVAs ap4 21.0 cm\S\2 LVLs ap4 7.6 cm ESV(MOD-sp4) 48.3 ml ESV(sp4-el) 49.1 ml EF(MOD-sp4) 51.7 % EF(sp4-el) 52.6 % LVAd ap2 33.5 cm\S\2 LVLd ap2 8.4 cm EDV(MOD-sp2) 105.9 ml EDV(sp2-el) 113.2 ml LVAs ap2 20.4 cm\S\2 LVLs ap2 7.2 cm ESV(MOD-sp2) 48.2 ml ESV(sp2-el) 49.0 ml EF(MOD-sp2) 54.4 % EF(sp2-el) 56.8 % LVLd %diff -8.56 % EDV(MOD-bp) 104.3 ml LVLs %diff -6.29 % ESV(MOD-bp) 49.7 ml EF(MOD-bp) 52.3 % SV(MOD-sp4) 51.7 ml SI(MOD-sp4) 24.4 ml/m\S\2 SV(MOD-sp2) 57.7 ml SI(MOD-sp2) 27.2 ml/m\S\2 SV(MOD-bp) 54.6 ml SI(MOD-bp) 25.8 ml/m\S\2 SV(sp4-el) 54.4 ml SI(sp4-el) 25.7 ml/m\S\2 SV(sp2-el) 64.3 ml SI(sp2-el) 30.3 ml/m\S\2 Doppler Measurements and Calculations MV E max keyshawn 69.6 cm/sec MV A max keyshawn 128.9 cm/sec MV E/A 0.54 MV P1/2t max keyshawn 73.0 cm/sec MV P1/2t 110.8 msec MVA(P1/2t) 2.0 cm\S\2 MV dec slope 193.0 cm/sec\S\2 MV dec time 0.20 sec Ao V2 max 335.5 cm/sec Ao max PG 45.0 mmHg Ao max PG (full) 41.3 mmHg Ao V2 mean 248.4 cm/sec Ao mean PG 27.2 mmHg Ao mean PG (full) 25.0 mmHg Ao V2 VTI 80.5 cm MAYDA(I,A) 0.97 cm\S\2 MAYDA(I,D) 0.97 cm\S\2 MAYDA(V,A) 0.91 cm\S\2 MAYDA(V,D) 0.91 cm\S\2 LV V1 max PG 3.7 mmHg LV V1 mean PG 2.2 mmHg LV V1 max 96.6 cm/sec LV V1 mean 69.7 cm/sec LV V1 VTI 24.5 cm SV(Ao) 634.6 ml SI(Ao) 299.6 ml/m\S\2 SV(LVOT) 77.8 ml SI(LVOT) 36.7 ml/m\S\2
[2016-11-09 17:44] LABS: CKMB/CK RATIO 2.5 (0-3.0)
[2016-11-09] MEDS: ENOXAPARIN 40 MG/0.4 ML SYR SC SCH (21:19)
[2016-11-09] MEDS: TAMSULOSIN HCL 0.4 MG CAP PO SCH (21:20)
[2016-11-10] VITALS (8 sets, daily range): BP systolic 89–152; BP diastolic 51–88; PULSE 58–82; TEMP 36.3–37; O2SAT 95–99
[2016-11-10 01:00] LABS: CKMB/CK RATIO 2.8 (0-3.0)
[2016-11-10] MEDS: DUTASTERIDE SCH ×2 (08:00→16:00)
[2016-11-10] MEDS: CHOLECALCIFEROL 1000 INTER.UNIT TAB PO SCH (08:02)
[2016-11-10] MEDS: ASPIRIN 81 MG ECTAB PO SCH (08:03)
[2016-11-10] MEDS: CARBIDOPA/LEVODOPA 25/100MG EXT REL TAB PO SCH ×3 (08:03→20:36)
[2016-11-10] MEDS: CEROVITE ADV FORMULA TAB PEG SCH (08:04)
[2016-11-10] MEDS: TIOTROPIUM BROMIDE 5 PUFF/90 MCG INH INH SCH (08:09)
--- NOTE | 2016-11-10 11:09 | Cardiology Consultation ---
Cardiology Consultation Date of Consultation: Nov 10, 2016. Requesting Physician: Juan Siu Attending Physician: Juan Siu Reason for Consultation: Chest Pain History of Present Illness The patient is an 81-year-old gentleman with history of coronary artery disease who is currently at a rehab facility. He suffers from gait unsteadiness as well as occasional falls. History the patient reported the acute onset of severe chest discomfort. This was right substernal in nature. He describes it ultimately as sharp and achy. The patient mentioned this to the nursing staff at his facility and was administer nitroglycerin with some relief. The symptoms did not jessica however and EMS was contacted. Patient states that in route he was also administered nitroglycerin with some improvement in his symptoms. His symptoms subsequently returned and he reports over the course of several hours at slightly diminished in intensity to the point where resolved entirely. This symptom was entirely right-sided in nature. It did not appear to worsen with deep inspiration. There was some discomfort with palpation in that area. Patient did not report significant breathing difficulty at that time. The symptoms themselves occurred at rest. Patient is fairly sedentary individual was currently in a rehab facility due to gait instability and occasional falls. Patient was in the [facility] Emergency Room on 03 of November for symptoms of falling. Patient does not recall that episode. He cannot recall any circumstances surrounding the recent fall. In question about dizziness, he states that he is dizzy all the time. This is not a new finding or changed recently. At the time of this interview the patient has some mild discomfort on the right chest wall. This is most noticeable with palpation at that site. No chest pain with deep inspiration currently. No breathing difficulty currently. Past Medical/Surgical History Coronary artery disease status post RCA stent. Valvular heart disease: Moderate aortic stenosis. Mild aortic insufficiency. Stage I diastolic dysfunction Remote history of atrial fibrillation associated with thoracic surgery Lung cancer Hyperlipidemia Dementia Restless leg syndrome Gait instability Orthostatic hypotension Past surgical history: Right thoracotomy with partial right lung resection Family History Breast cancer Diabetes mellitus Hypertension Myocardial infarction No premature coronary disease. Social History Smoking Status: Former Smoker (quit in 2000) History of Alcohol Use: No Review of Systems Constitutional: + see HPI Respiratory: + see HPI Cardiac: + see HPI Abdomen: + see HPI Male : + see HPI Neurologic: + see HPI, + memory loss Heme: + see HPI Endo: + see HPI Patient describe some difficulty with memory. He also describes some gait instability. Claims to be eating well. He has not noticed any change in his bowel habits. He does not report any swelling of lower extremities. Does have the aforementioned chronic dizziness. All Other Systems: Reviewed and Negative Allergies Coded Allergies: No Known Allergies (Unverified , 11/03/16) Medications Current Inpatient Medications Medications (Trade) Dose Ordered Sig/Humberto Route Start Time Stop Time Status Last Admin Dose Admin Enoxaparin Sodium (Lovenox Inj) 40 mg HS SC 11/09/16 21:00 12/09/16 20:59 11/09/16 21:19 40 MG Acetaminophen (Tylenol Tab) 650 mg Q4H PRN PO 11/09/16 11:00 12/09/16 10:59 Al Hydrox/Mg Hydrox/Simethicone (Maalox Max Susp) 15 ml Q4H PRN PO 11/09/16 11:00 12/09/16 10:59 Magnesium Hydroxide (Milk Of Magnesia Susp) 30 ml Q12H PRN PO 11/09/16 11:00 12/09/16 10:59 Ondansetron HCl (Zofran Inj) 4 mg Q6H PRN IV 11/09/16 11:00 12/09/16 10:59 Nitroglycerin (Nitrostat Tab) 0.4 mg UD PRN SL 11/09/16 11:00 12/09/16 10:59 Polyethylene (Miralax Powder Packet) 17 gm DAILY PRN PO 11/09/16 11:00 12/09/16 10:59 Aspirin (Ecotrin Tab) 81 mg QAM PO 11/10/16 09:00 12/10/16 08:59 11/10/16 08:03 81 MG Cholecalciferol (Vitamin D Tab) 1,000 inter.unit QAM PO 11/10/16 09:00 12/10/16 08:59 11/10/16 08:02 1,000 INTER.UNIT Docusate Sodium (coLACE CAP) 100 mg DAILY@1200 PO 11/09/16 12:00 12/09/16 11:59 11/09/16 12:49 100 MG Carbidopa/Levodopa (Sinemet Cr 25/ 100MG Tab) 1 tab TID PO 11/09/16 14:00 12/09/16 13:59 11/10/16 08:03 1 TAB Multivitamins/ Minerals (Multivitamin W/ Minerals Tab) 1 tab DAILY PEG 11/10/16 09:00 12/10/16 08:59 11/10/16 08:04 1 TAB Pantoprazole Sodium (Protonix Tab) 40 mg DAILY@1630 PO 11/09/16 16:30 12/09/16 16:29 11/09/16 16:07 40 MG Senna (Senokot Tab) 8.6 mg DAILY@1200 PO 11/09/16 12:00 12/09/16 11:59 11/09/16 12:49 8.6 MG Tamsulosin HCl (Flomax Cap) 0.4 mg HS PO 11/09/16 21:00 12/09/16 20:59 11/09/16 21:20 0.4 MG Tiotropium [place] (Spiriva Handihaler Inhaler) 1 puff QAM INH 11/10/16 09:00 12/10/16 08:59 11/10/16 08:09 1 PUFF Ibuprofen (Motrin Tab) 800 mg TID PRN PO 11/09/16 11:00 12/09/16 10:59 Hydralazine HCl (HydrALAZINE INJ) 10 mg Q6H PRN IV. 11/09/16 11:30 12/09/16 11:29 Miscellaneous (Iv Fluids Completed) 1 ea PRN PRN N/A 11/09/16 12:15 11/09/17 12:14 Miscellaneous Information (Order Awaiting Action) 1 ea QS N/A 11/09/16 16:00 12/09/16 15:59 Physical Exam Vital Signs Past 12 Hours Date Time Temp Pulse Resp B/P (MAP) Pulse Ox O2 Delivery O2 Flow Rate FiO2 11/10/16 08:00 Room Air 11/10/16 07:18 36.5 58 18 150/81 (104) 96 Room Air 11/10/16 04:00 Room Air 11/10/16 03:47 36.7 82 18 142/77 (98) 96 Room Air 11/10/16 00:00 Room Air 11/09/16 23:39 36.6 80 18 148/81 (103) 96 Room Air The patient is alert and oriented. Mood and affect appeared normal. He answered all questions appropriately. Hard of hearing HEENT: Pupils are equal and reactive to light and accommodation. Extraocular movements are intact. The sclerae are anicteric. Neuro: Cranial nerves intact Neck: Patient's neck is supple. He has palpable carotid pulses bilaterally without bruits on auscultation. There is no evidence of jugular venous distention. The thyroid is not enlarged. Lungs: Clear to auscultation bilaterally. He has good air movement without use of accessory muscles. No rales wheezes or rhonchi. Cardiac: Heart demonstrates a regular rate and rhythm. Normal S1 and S2. Crescendo systolic murmur heard throughout the precordium Chest: Patient has some mild tenderness with palpation of the right lateral chest wall.. Pulses: The patient has palpable radial pulses bilaterally that are equal in intensity Extremities: There was no evidence of hypoperfusion. There is no cyanosis or clubbing. There is no edema. Skin: I did not appreciate any rashes on examination today. Data Laboratory Results: Last 24 Hours Test 11/09/16 16:57 11/10/16 00:30 Total Creatine Kinase 107 U/L 89 U/L Creatine Kinase MB 2.7 ng/ml 2.5 ng/ml Creatine Kinase MB Ratio 2.5 2.8 Troponin I < 0.015 ng/ml < 0.015 ng/ml Imaging: I reviewed the patient's chest x-ray report noting the rib fractures. Echocardiogram: Preserved LV systolic function. Stage I diastolic dysfunction. Moderate aortic stenosis. Mild aortic regurgitation. EKG: Left bundle branch block Telemetry reviewed: Several beats of an atrial tachycardia otherwise unremarkable Assessment & Plan 1. Chest pain: The character of the patient's chest pain including the location are atypical. Did have some relief with nitroglycerin but not complete relief. The symptoms returned and were fairly extended in duration. Given the atypical nature of the symptoms in the extended duration without elevation in the cardiac biomarkers I think we can conclusively say this was noncardiac in nature. Interestingly, patient was noted to have rib fractures close to the site of discomfort. These were not noted on a chest x-ray obtained 9 days prior. Patient may have had a fall in between was evaluated for fall, but he does not recall this event. Unknown if these are more chronic or related to a recent fall. Also seems reasonable to conclude that they are involved in his current symptoms. Based on these findings well as the criteria noted above, I would not pursue any additional cardiac stress testing. 2. Left bundle-branch block: Patient has a complete left bundle branch block on his EKG. This is different than the last EKG obtained several days ago. Interestingly, he has the same morphology QRS just longer duration. In the setting of chest pain and new left bundle branch block 1 could consider coronary angiography for the possibility of an acute coronary syndrome. However , the patient did not have an acute coronary syndrome is currently not having chest pain. We know he has a history of coronary disease, but I would not suggest an additional evaluation on the basis of this abnormal EKG alone. 3. Coronary artery disease: He has not report other symptoms that would be more consistent with coronary insufficiency or angina. This point continuation of a daily aspirin would be reasonable. Moderate dose statin therapy is also advisable. This was stopped at nearly 1 year ago due to concerns over fatigue.. 4. Diastolic dysfunction: No current symptoms consistent with decompensation. Good control of blood pressure would be most efficacious. 5. Aortic stenosis. Moderate. No symptoms related to this valvular heart disease.
[2016-11-10] MEDS: SENNA 8.6 MG TAB PO SCH (12:08)
[2016-11-10] MEDS: DOCUSATE SODIUM 100 MG CAP PO SCH (12:08)
--- NOTE | 2016-11-10 14:55 | Progress Note ---
Subjective Date of Service: Nov 10, 2016. Subjective Pt evaluation today including: conversation w/ patient, physical exam, chart review, lab review, review of studies, conversation w/ consultants intern, review of inpatient medication list Voiding: no voiding problems Report doing okay, no chest pain when sitting up, no nausea vomiting, no fever and chill, no other complaints Problem List Medical Problems: (1) Dysarthria Status: Acute (2) Elevated WBCs Status: Acute (3) Lethargy Status: Acute (4) Sepsis Status: Acute (5) Urinary retention Status: Acute (6) UTI (urinary tract infection) Status: Acute Review of Systems Constitutional: + fatigue, No fever, No chills, No sweats, No weight loss, No weakness, No problem reported Eyes: No worsening of vision, No eye pain, No redness, No discharge, No diplopia ENT: No hearing loss, No unusual epistaxis, No nasal symptoms, No sore throat, No tinnitus, No dental problems, No trouble swallowing Respiratory: No cough, No sputum, No wheezing, No shortness of breath, No dyspnea on exertion, No dyspnea at rest, No hemoptysis Cardiac: + problem reported (chest wall pain when movement), No chest pain, No orthopnea, No PND, No edema, No claudication, No palpitations Abdomen: No pain, No nausea, No vomiting, No diarrhea, No constipation Musculoskeletal: No joint pain, No muscle pain, No swelling, No calf pain Male : No dysuria, No urinary frequency, No incontinence, No nocturia more than once/night, No slowing stream, No hematuria Neurologic: No memory loss, No paralysis, No weakness, No numbness/tingling, No vertigo, No balance problems Psychiatric: No depression symptoms, No anhedonism, No anxiety, No insomnia, No substance abuse Heme: No abnormal bleeding/bruising, No clotting problems, No swollen lymph nodes, No night sweats Endo: No fatigue, No excessive thirst, No excessive urination Skin: No rash, No itch, No new/changing skin lesions, No color change, No bleeding Objective Vital Signs Date Time Temp Pulse Resp B/P (MAP) Pulse Ox O2 Delivery O2 Flow Rate FiO2 11/10/16 12:00 Room Air 11/10/16 11:47 37.0 67 19 127/78 (94) 97 Nasal Cannula 11/10/16 10:41 70 98 11/10/16 08:00 Room Air 11/10/16 07:18 36.5 58 18 150/81 (104) 96 Room Air 11/10/16 04:00 Room Air 11/10/16 03:47 36.7 82 18 142/77 (98) 96 Room Air 11/10/16 00:00 Room Air 11/09/16 23:39 36.6 80 18 148/81 (103) 96 Room Air 11/09/16 20:00 97 Room Air 11/09/16 18:48 36.8 68 22 113/69 (84) 96 Room Air 11/09/16 16:00 99 Room Air 11/09/16 15:36 36.4 85 22 127/85 (99) 99 Room Air Physical Exam General Appearance: WD/WN, no apparent distress Eyes: normal inspection, PERRL, EOMI, sclerae normal ENT: normal ENT inspection, hearing grossly normal, pharynx normal Neck: supple, no adenopathy, thyroid normal, no JVD, no carotid bruits, trachea midline Respiratory/Chest: chest non-tender, normal breath sounds, no respiratory distress, no accessory muscle use, + decreased breath sounds, + pertinent finding (right anterior ribs local tender when palpation) Cardiovascular: regular rate, rhythm, no edema, no gallop, no JVD, no murmur Abdomen: normal bowel sounds, non tender, soft, no organomegaly, no pulsatile mass Extremities: normal range of motion, non-tender, normal inspection, no pedal edema, no calf tenderness, normal capillary refill, pelvis stable Neurologic/Psychiatric: fitter welder II-XII nml as tested, no motor/sensory deficits, alert, normal mood/affect, oriented x 3 Skin: normal color, warm/dry, no rash Lymphatic: no adenopathy Laboratory Results Last 24 Hours Test 11/09/16 16:57 11/10/16 00:30 Total Creatine Kinase 107 U/L 89 U/L Creatine Kinase MB 2.7 ng/ml 2.5 ng/ml Creatine Kinase MB Ratio 2.5 2.8 Troponin I < 0.015 ng/ml < 0.015 ng/ml Assessment and Plan 81 y/o male with a history of paroxysmal a-fib, h/o cardiac stents x 3 (2004), HTN, HLD, Parkinson's disease, essential tremor, COPD, chronic anemia, BPH, GERD , and h/o lung cancer who presented to the ED on 11/09 from [facility] with chest pain. Chest pain, facial diagnoses include refracture from recent all, or cardiac chest pain, however likely noncardiac -Has been kept in telemetry for observation -Trend cardiac enzymes q8h 3. Were all negative -Consult cardiology given history and LBBB, appreciate recs. -Echocardiogram was done, reports in below * There is mild concentric left ventricular hypertrophy. * Left ventricular systolic function is normal. * Grade I diastolic dysfunction, (abnormal relaxation pattern). * Mild aortic regurgitation. * Moderate valvular aortic stenosis. * Small pericardial effusion. * Compared to a study from 01/2016, there has been progression in the degree of aortic stenosis -Nitroglycerin sublingual prn -Continue aspirin 81 mg PO qd -EKGs q am and prn with chest pain -Chest x-ray shows fractures of the right lateral fifth and sixth ribs, indeterminate age. This may be etiology of the pain. -Tylenol and ibuprofen prn pain - Discussed with thermal surfacing machine operator, patient to have risk factors for coronary artery disease, but were not order any further evaluation for now because of rib fracture - Patient need to follow-up with cardiology as outpatient, need to follow-up for possible worsening aortic stenosis with thermal surfacing machine operator Right chest pain, very likely musculoskeletal , asso with right chest wall adjacent to sternum local tenderness with evidence of right fifth and sixth anterior rib fracture, pain control, PT OT, Abnormal EKG with left bundle branch block: Discussed with cardiology no planning to do any procedure for now, we will order echo and follow-up cardiac enzyme troponin, cardiac enzyme troponin has been negative 3 HTN--currently hypertensive, BP up to 216/102 in ED, totally resolved -Hydralazine 10 mg IV q6h prn SBP >180 Parkinson's disease--stable -Continue Sinemet 25/100 mg PO TID COPD--stable -Incruse Ellipta substituted for Spiriva 1 inh qd Chronic anemia--unknown etiology. MCV normocytic. Last iron studies 01/2016 grossly normal. B12 and folate WNL 02/2016. Baseline Hgb around 12-13 -Hgb around baseline on admission BPH -Continue dutasteride 0.5 mg PO qd and Flomax 0.4 mg PO qd GERD -Continue Protonix 40 mg PO qd DVT prophylaxis -Enoxaparin 40 mg SC q24h -IRMA hernandez and SCDs Code Status -Level I, FULL RESUSCITATION STATUS Dispo -From [facility] -PT/OT evaluate and treat, transfer to med/surg today, medically ready to be [facility] continued rehabilitation I called to patient's daughter, not available, message left for her to call me back Continued [facility] stay due to: multiple IV medications needed Discharge planning: home
[2016-11-10] MEDS: PANTOprazole SOD 40 MG TAB PO SCH (16:19)
[2016-11-10] MEDS: TAMSULOSIN HCL 0.4 MG CAP PO SCH (20:36)
[2016-11-10] MEDS: ENOXAPARIN 40 MG/0.4 ML SYR SC SCH (20:36)
[2016-11-11] MEDS: DUTASTERIDE SCH ×2 (07:31)
[2016-11-11] MEDS: CEROVITE ADV FORMULA TAB PEG SCH (07:36)
[2016-11-11] MEDS: CHOLECALCIFEROL 1000 INTER.UNIT TAB PO SCH (07:36)
[2016-11-11] MEDS: CARBIDOPA/LEVODOPA 25/100MG EXT REL TAB PO SCH ×2 (07:36→13:59)
[2016-11-11] MEDS: TIOTROPIUM BROMIDE 5 PUFF/90 MCG INH INH SCH (07:36)
[2016-11-11] MEDS: ASPIRIN 81 MG ECTAB PO SCH (07:36)
[2016-11-11 07:50] VITALS: BP 146/80; PULSE 63; TEMP 36.7; O2SAT 95
[2016-11-11] MEDS ORDERED: LPT/20 PO (11:03)
--- NOTE | 2016-11-11 11:13 | Discharge Instructions ---
Discharge Instructions Date of Service Nov 11, 2016. Admission Reason for Admission: Chest Pain Discharge Discharge Diagnosis / Problem: Chest pain, right rib fractures Discharge Goals Goal(s): Decrease discomfort, Diagnostic testing, Therapeutic intervention Activity Recommendations Activity Level: Assistance Required Therapies: Physical Therapy, Occupational Therapy Exercise/Sports Limitations: as tolerated Shower/Bathe: no limitations . Additional Information Patient informed of condition: Yes Advance Directives: No DNR: No Level of Care: Acute Rehab Communicable Disease: No Prognosis: Stable Edmondson Catheter: No Instructions / Follow-Up Instructions / Follow-Up You were admitted to the hospital with right sided chest pain. Due your previous cardiac history, you were observed in the telemetry unit for cardiac monitoring. This did not reveal any acute events or irregular rhythms. Your cardiac enzymes were checked serially, and these were normal. An echocardiogram , or ultrasound of the heart, showed some progression of your aortic stenosis but otherwise had no significant changes from your previous changes, and did not show any evidence of a heart attack. Cardiology was consulted due to some changes that were found in your EKGs, but the chest pain was not thought to be cardiac in etiology and no further evaluation was recommended. It was recommended that you be placed on a moderate intensity statin drug for your cholesterol, however, given your cardiac disease history. You are now medically stable to return to [facility] to resume your rehab. Medications: *Please take atorvastatin 20 mg by mouth daily. *You may take Tylenol or ibuprofen as needed for rib pain. *Continue your other home medications as prescribed. Follow up: *Please follow up with your primary care provider or facility provider within 1 week regarding hospital stay and changes to your medications. *Please follow up with Dr. Castro of cardiology in 2-3 weeks. Please seek medical attention if you experience fevers, chills, sweats, dizziness/lightheadedness, loss of consciousness, chest pain, shortness of breath, nausea, vomiting, numbness or tingling. Current Hospital Diet Patient's current hospital diet: AHA Diet (Heart Healthy) Discharge Diet Recommended Diet: AHA Diet (Heart Healthy) Procedures Procedures Performed: Echocardiogram Pending Studies Studies pending at discharge: no Physician Orders On Transfer Special Precautions: Fall precautions Vital Signs: Routine Additional Orders: May give Tylenol/ibuprofen as needed for right rib pain due to fractures. Pt has not required any pain medications while in hospital. Medical Emergencies . Who to Call and When: Medical Emergencies: If at any time you feel your situation is an emergency, please call 911 immediately. . Non-Emergent Contact Non-Emergency issues call your: Primary Care Provider, Disk And Tape Machine Tender Call Non-Emergent contact if: you have a fever, your pain is not controlled, your pain is worsening, your pain is unusual for you, your pain is concerning you, you have any medication questions . Past History Medical & Surgical History: (1) Ribs, multiple fractures (2) Chest pain . "Provider Documentation" section prepared by Shanique Sampson. . Core Measure Problem Core Measures: None
[2016-11-11 11:24] VITALS: BP 146/80; PULSE 63; TEMP 36.7; O2SAT 95
[2016-11-11] MEDS: DOCUSATE SODIUM 100 MG CAP PO SCH (12:16)
[2016-11-11] MEDS: SENNA 8.6 MG TAB PO SCH (12:16)
--- NOTE | 2016-11-11 14:03 | Discharge Summary ---
Discharge Summary Date of Service Nov 11, 2016. Discharge Summary Admission Date: Nov 09, 2016 at 11:07 Discharge Date: Nov 11, 2016 Discharge Disposition: Rehab Principal Diagnosis: Chest pain, right rib fractures Immunizations: Tetanus Immunization Date: Sep 22, 2013 Procedures: CHEST ONE VIEW PORTABLE CLINICAL HISTORY: 81 years-old Male presenting with CHEST PAIN. TECHNIQUE: Portable upright AP view of the chest was obtained. COMPARISON: 10/31/2016. FINDINGS: The patient is NIUEAN rotated. Persistent prominence of the cardiomediastinal silhouette. Prominent pulmonary vasculature. 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 No focal infiltrate. No large effusion or pneumothorax. Degenerative changes of the thoracic spine. Irregularity of the right lateral fifth and sixth ribs, consistent with rib fractures. Upper abdomen normal. IMPRESSION: 1. Cardiomegaly. No mita pulmonary edema. 2. Fractures of the right lateral fifth and sixth ribs, age indeterminate. Echocardiogram: Interpretation Summary * Name: DANNA JONES Study Date: 11/09/2016 02:52 PM BP: 127/85 mmHg * Patient Location: [facility]\\1 HR: 68 * : 1935 (M/d/yyyy) Gender: Male Height: 70 in * Age: 81 yrs Ethnicity: [place] Weight: 207 lb * Ordering Physician: Shanique Sampson * Referring Physician: Self, Referred * Performed By: Roxanne Bay, [facility] * * Reason For Study: CHEST PAIN * BSA: 2.1 m2 * -- Conclusions -- * There is mild concentric left ventricular hypertrophy. * Left ventricular systolic function is normal. * Grade I diastolic dysfunction, (abnormal relaxation pattern). * Mild aortic regurgitation. * Moderate valvular aortic stenosis. * Small pericardial effusion. * Compared to a study from 01/2016, there has been progression in the degree of aortic stenosis Procedure Details * A complete two-dimensional transthoracic echocardiogram was performed (2D, M- mode, Doppler and color flow Doppler). Left Ventricle * The left ventricle is normal in size. * There is mild concentric left ventricular hypertrophy. * Left ventricular systolic function is normal. * Ejection Fraction = 55-60%. * Grade I diastolic dysfunction, (abnormal relaxation pattern). Right Ventricle * The right ventricle is normal in size and function. Atria * The left atrial size is normal. * Right atrial size is normal. Mitral Valve * The mitral valve is grossly normal. * Significant mitral regurgitation is absent. Tricuspid Valve * The tricuspid valve anatomy is normal. * Significant tricuspid regurgitation is absent. Aortic Valve * The aortic valve is trileaflet. * Moderate valvular aortic stenosis. * Mild aortic regurgitation. Great Vessels * The aortic root is normal size. Pericardium/Pleural * Small pericardial effusion. Consultations: Cardiology--Dr. Castro Medication Reconciliation New Medications: Atorvastatin (Atorvastatin Calcium) 20 Mg Tab 20 MG PO DAILY for 30 Days, #30 TABS Continued Medications: Acetaminophen (Tylenol) 500 Mg Tab 1000 MG PO Q4H PRN for Pain or Fever, TAB MAX 3GM COMBINED TOTAL APAP/ 24 HOURS USE PRN FOR MILD PAIN 1-3 OR FEVER >101F Aspirin (Aspirin 81) 81 Mg Tab 81 MG PO QAM Cholecalciferol (Vitamin D3) 1,000 Unit Tab 1 TAB PO QAM Docusate Sodium (Colace) 100 Mg Cap 100 MG PO DAILY@1200 Dutasteride (Dutasteride) 0.5 Mg Cap 1 TAB PO DAILY@1700 Enoxaparin (Lovenox) 40 Mg/0.4 Ml Inj 0.4 ML SQ DAILY@1900 for 10 Days, #10 SYR Ibuprofen Tab (Advil) 200 Mg Tab 200 MG PO QAM Levodopa/Carbidopa (Carbidopa/Levodopa Sr 25-100 mg) 1 Tab Tabcr 1 TAB PO TID Magnesium Hydroxide (Milk Of Magnesia) 30 Ml Susp 30 ML PO DAILY PRN for Constipation, ML IF NO BM OR CONSTIPATION PAST 1 DAY Multiple Vitamins W/ Minerals (Centrum Silver Adult 50+) 1 Tab Tab 1 TAB PEG DAILY TAKE WITH BREAKFAST Pantoprazole (Protonix) 40 Mg Tab 40 MG PO DAILY@1630, #30 TAB Polyethylene Glycol 3350 (Miralax) 1 Pow Pow 17 GM PO DAILY@1200, #255 GM Senna (Senokot) 8.6 Mg Tab 8.6 MG PO DAILY@1200 Tamsulosin HCl (Tamsulosin HCl) 0.4 Mg Cap 0.4 MG PO HS Umeclidinium [place] (Incruse Ellipta) 62.5 Mcg/Inh Inh 1 INHA INH DAILY Referrals At Discharge Follow up Referrals: Break Off Worker Referral - Within 2 Weeks with Joshua Castro MD Family Practice Referral - Within 1 Week with RV. Garcia MD Discharge Exam Patient reports feeling well. He does report having some chest pain earlier, but this resolved on its own. He denies any associated dizziness, shortness of breath, nausea, vomiting, numbness or tingling. The patient denies fevers, chills, sweats, chest pain, palpitations, claudication, cough, wheezing, shortness of breath, nausea, vomiting, abdominal pain, dysuria, hematuria, urinary retention, paralysis, weakness, acute numbness and tingling. Review of Systems: Constitutional: No fever, No chills, No sweats Eyes: No worsening of vision, No eye pain, No diplopia ENT: No hearing loss, No sore throat, No trouble swallowing Respiratory: No cough, No wheezing, No shortness of breath Cardiovascular: No chest pain, No claudication Abdomen: No pain, No nausea, No vomiting Musculoskeletal: No joint pain, No muscle pain, No calf pain Genitourinary - Male: No hematuria, No dysuria, No urinary retention Neurologic: + numbness/tingling (chronic intermittent tingling plantar surfaces of both feet, resolves with walking), No paralysis, No weakness Integumentary: No rash, No itch, No color change Physical Exam: General Appearance: WD/WN, no apparent distress Eyes: normal inspection, PERRL, EOMI ENT: normal ENT inspection, hearing grossly normal, pharynx normal Neck: supple, no JVD, trachea midline Respiratory/Chest: lungs clear, normal breath sounds, no respiratory distress Cardiovascular: regular rate, rhythm, no gallop, + systolic murmur Abdomen / GI: normal bowel sounds, non tender, soft Extremities: normal inspection, no calf tenderness, no pedal edema Neurologic/Psychiatric: alert, normal mood/affect, oriented x 3, + pertinent finding (tremor) Skin: normal color, warm/dry, no rash Hospital Course 81 y/o male with a history of paroxysmal a-fib, h/o cardiac stents x 3 (2004), HTN, HLD, Parkinson's disease, essential tremor, COPD, chronic anemia, BPH, GERD , and h/o lung cancer who presented to the ED on 11/09 from [facility] with chest pain. Chest pain--currently pain free -Admit to telemetry for observation -Cardiac enzymes negative x 3 -Consult cardiology given history and LBBB, appreciate recs: Chest pain does not seem to be cardiac in etiology. No further cardiac evaluation at this time. Advise starting on a moderate intensity statin. -Echocardiogram shows LVEF of 55-60%. Grade I diastolic dysfunction. Moderate aortic stenosis, which is progressive from previous study. -Nitroglycerin sublingual prn -Continue aspirin 81 mg PO qd -Discharge with atorvastatin 20 mg PO qd -EKGs q am and prn with chest pain. No ischemic changes -Chest x-ray shows fractures of the right lateral fifth and sixth ribs, indeterminate age. This may be etiology of the pain. -Tylenol and ibuprofen prn pain. Pt did not take any pain meds while inpatient. HTN--hypertensive on admission, BP up to 216/102 in ED -Hydralazine 10 mg IV q6h prn SBP >180 -BP stable at discharge Parkinson's disease--stable -Continue Sinemet 25/100 mg PO TID COPD--stable -Incruse Ellipta substituted for Spiriva 1 inh qd Chronic anemia--unknown etiology. MCV normocytic. Last iron studies 01/2016 grossly normal. B12 and folate WNL 02/2016. Baseline Hgb around 12-13 -Hgb around baseline on admission BPH -Continue dutasteride 0.5 mg PO qd and Flomax 0.4 mg PO qd GERD -Continue Protonix 40 mg PO qd DVT prophylaxis -Enoxaparin 40 mg SC q24h -IRMA hernandez and NORMAs Code Status -Level I, FULL RESUSCITATION STATUS Dispo -From [facility] -PT/OT evaluate and treat -Medically stable for discharge, returned to [facility] Total Time Spent: Greater than 30 minutes This includes examination of the patient, discharge planning, medication reconciliation, and communication with other providers. Discharge Instructions Please refer to the electronic Patient Visit Report (Discharge Instructions) for additional information. Additional Copies To RV. Garcia MD; [facility]
[2016-11-11 15:03] VITALS: BP 130/74; PULSE 68; TEMP 36.8; O2SAT 96
== END 2016-11-11 16:00 ==
LOC: EDBD 08:41 → C.EDB 08:42 → C.2T 11:07 → ENRESERV 11:17 → C.MS2W 11-10 15:30
PROVIDERS: ADMIT Hospitalist; ATTEND Hospitalist
DX: R07.9 Chest pain, unspecified (principal); S22.41XA Multiple fractures of ribs, right side, initial encounter for closed fracture; I48.0 Paroxysmal atrial fibrillation; I25.10 Atherosclerotic heart disease of native coronary artery without angina pectoris; Z95.818 Presence of other cardiac implants and grafts; I10 Essential (primary) hypertension; E78.5 Hyperlipidemia, unspecified; G20 Parkinson's disease; J44.9 Chronic obstructive pulmonary disease, unspecified; Z85.118 Personal history of other malignant neoplasm of bronchus and lung; Z79.82 Long term (current) use of aspirin; Z87.891 Personal history of nicotine dependence; I51.7 Cardiomegaly; Z80.3 Family history of malignant neoplasm of breast; Z83.3 Family history of diabetes mellitus; Z82.49 Family history of ischemic heart disease and other diseases of the circulatory system; Z79.01 Long term (current) use of anticoagulants; I35.0 Nonrheumatic aortic (valve) stenosis; X58.XXXA Exposure to other specified factors, initial encounter

== ENCOUNTER 2017-02-18 07:13 | Observation (INO) | payer OTHER, BC ==
[~2017-02-18] VITALS: Ht 175.3 cm; Wt 92.6 kg
[~2017-02-18 07:13] MED LIST changes: +CARB25TA16 PO; -CYAN100048 PO; +LPT/20 PO
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
[2017-02-18 07:54] LABS: HEMATOCRIT 37.6 % (42-52); MEAN CELL VOLUME 83.7 fL (80-100); MEAN CORPUSCULAR HEMOGLOBIN 27.6 pg (25-34); MEAN PLATELET VOLUME 9.4 fL (7.4-10.4); PLATELET COUNT 184 K/uL (130-400); RED BLOOD COUNT 4.49 M/uL (4.7-6.1); WHITE BLOOD COUNT 6.95 K/uL (4.8-10.8)
[2017-02-18 08:02] LABS: ALT/SGPT 9 U/L (12-78); BLOOD UREA NITROGEN 15 mg/dl (7-18); BUN/CREATININE RATIO 15.6 (10-20); CALCIUM 8.7 mg/dl (8.5-10.1); CARBON DIOXIDE 25 mmol/L (21-32); CHLORIDE 103 mmol/L (98-107); CREATININE 0.99 mg/dl (0.60-1.40); GLUCOSE 102 mg/dl (70-99); POTASSIUM 3.9 mmol/L (3.5-5.1); SODIUM 135 mmol/L (136-145)
[2017-02-18 08:07] LABS: ALB/GLOB RATIO 1.1 (0.9-2); ALKALINE PHOSPHATASE 97 U/L (45-117); AST/SGOT 33 U/L (15-37)
[2017-02-18] MEDS ORDERED: CYAN500T PO (08:08)
[2017-02-18] MEDS ORDERED: DUTA0.5C PO (08:09)
--- NOTE | 2017-02-18 09:23 | DIAGNOSTIC IMAGING REPORT ---
HEAD WITHOUT CONTRAST (CT) CT DOSE: 580.48 mGy.cm HISTORY: Mental status change can't walk TECHNIQUE: Multiaxial CT images of the head were performed without the use of intravenous contrast. A dose lowering technique was utilized adhering to the principles of ALARA. Comparison: 11/03/2016 Findings: The paranasal sinuses and mastoid air cells are clear. Findings of mild cerebral atrophy. Mild/moderate chronic small vessel change of aging. No evidence for acute intracranial hemorrhage. No midline shift. No change in the prior exam. Impression: Chronic and small vessel change of aging. No acute intracranial abnormality. No change from the prior exam. The above report was generated using voice recognition software. It may contain grammatical, syntax or spelling errors. Electronically signed by: Ezkeiel Ivan M.D. 02/18/2017 9:22 AM Dictated Date/Time: 02/18/2017 9:21 AM
[2017-02-18 10:10] LABS: URINE APPEARANCE CLEAR (CLEAR); URINE BILIRUBIN NEG (NEG); URINE COLOR YELLOW; URINE NITRITE NEG (NEG); URINE PH 6.5 (4.5-7.5); URINE SPECIFIC GRAVITY 1.017 (1.000-1.030); UROBILINOGEN NEG (NEG)
[2017-02-18 10:11] LABS: MANUAL MICROSCOPIC REQUIRED? NO; REVIEW REQ? NO
[2017-02-18 11:30] VITALS: O2SAT 97; Ht 175.3 cm; Wt 92.6 kg
[2017-02-18] MEDS ORDERED: DOXYCYCLINE HYCLATE 100 MG CAP PO STA (11:55)
[2017-02-18] MEDS ORDERED: POLYETHYLENE (MIRALAX) 17 GM PACK PO PRN (12:00)
[2017-02-18] MEDS ORDERED: ACETAMINOPHEN 325 MG TAB PO PRN (12:00)
[2017-02-18 12:53] VITALS: BP 181/93; PULSE 70; TEMP 37; O2SAT 92
[2017-02-18 12:59] LABS: FERRITIN 30.9 ng/ml (8.0-388.0); THYROID STIMULATING HORMONE 1.27 uIu/ml (0.300-4.500)
[2017-02-18 13:09] LABS: LYME DISEASE AB IGG NEG (NEG); LYME DISEASE AB IGM NEG (NEG)
--- NOTE | 2017-02-18 13:10 | History and Physical ---
History & Physical Date & Time of Service: Feb 18, 2017 at 11:27 Chief Complaint: Unable To Ambulate Primary Care Physician: RV. Garcia MD History of Present Illness Source: patient, family, hospital records, other (discussed with Neurology) This patient is an 81-year-old male with a history of multisystem atrophy with Parkinson symptoms (MSAP), CAD status post RASHEL, hypertension, COPD, chronic iron deficiency anemia, history of lung cancer, lone atrial fibrillation, GERD, hyperlipidemia, BPH, RLS, chronic diastolic CHF, moderate aortic stenosis and mild aortic regurgitation, history of LBBB, who presents to the ER with complaint of inability to walk. He resides with his daughter and son-in-law who noted that he was in the bathroom at 4:00 this morning and had no difficulty walking at that time. A couple of hours later in the morning, the patient was heard banging his cane asking for help as he was able to stand up, but could not initiate ambulation. He has full strength throughout his legs and no weakness anywhere else, but just continued to not be able to walk in the ER. Attempts were made to place him at acute rehabilitation from the ER, but there were no beds available. Otherwise, his laboratory workup and CT of the head were all essentially normal and there were no signs of infection. This is likely related to his unfortunate chronic neuromuscular disease, and he will be admitted for further evaluation and treatment, with the hopes of acute rehabilitation placement in the near future. Past Medical/Surgical History PMH: Multisystem atrophy with Parkinson symptoms (MSAP) BPH HTN Coronary artery disease status post RCA stent. Valvular heart disease: Moderate aortic stenosis. Mild aortic insufficiency. Chronic diastolic CHF Remote history of atrial fibrillation associated with thoracic surgery History of Lung cancer treated with lobectomy alone Hyperlipidemia Dementia Restless leg syndrome Gait dysfunction History of Orthostatic hypotension COPD Chronic iron deficiency anemia H/o LBBB PSH: Right thoracotomy with right upper lobectomy Open appendectomy Bilateral knee arthroscopies Family History Breast cancer Diabetes mellitus Hypertension Myocardial infarction Noncontributory Social History Smoking Status: Former Smoker (smoked [id number] history, quit in 2000) Alcohol Use: none Drug Use: none Marital Status: Housing status: lives with family (lives with his daughter and son-in-law), other Occupational Status: retired Immunizations Tetanus Immunization Date: Sep 22, 2013 Multi-Drug Resistant Organisms History of MDRO: No Allergies Coded Allergies: No Known Allergies (Unverified , 02/18/17) Home Medications Scheduled Aspirin (Aspirin 81), 81 MG PO QAM Atorvastatin (Atorvastatin Calcium), 20 MG PO DAILY Cholecalciferol (Vitamin D3), 1 TAB PO QAM Cyanocobalamin (Vitamin B-12), 500 MCG PO DAILY Docusate Sodium (Colace), 100 MG PO DAILY@1200 Dutasteride (Avodart), 0.5 MG PO DAILY Ibuprofen Tab (Advil), 200 MG PO QAM Levodopa/Carbidopa (Carbidopa/Levodopa Sr 25-100 mg), 1 TAB PO TID Pantoprazole (Protonix), 40 MG PO DAILY@1630 Polyethylene Glycol 3350 (Miralax), 17 GM PO DAILY@1200 Senna (Senokot), 8.6 MG PO DAILY@1200 Tamsulosin HCl (Tamsulosin HCl), 0.4 MG PO HS Umeclidinium [place] (Incruse Ellipta), 1 INHA INH DAILY Scheduled PRN Acetaminophen (Tylenol), 1,000 MG PO Q4H PRN for Pain or Fever Review of Systems Constitutional: No fever, No chills Eyes: No worsening of vision ENT: + hearing loss Respiratory: No cough, No sputum, No shortness of breath Cardiovascular: No chest pain, No edema Abdomen: + constipation, No pain, No nausea, No vomiting, No diarrhea, No GI bleeding Musculoskeletal: + problem reported (chronic neck pain, very rare lower back pain but not currently), No joint pain Genitourinary - Male: No dysuria, No urinary frequency, No urinary retention ( but did have to be catheterized in the ER for a urine sample, although patient denies any problems at home) Neurologic: + numbness/tingling (occasionally in his legs which has been diagnosed as RLS), + problem reported (occasional mild headaches, gait dysfunction as per history of present illness) Psychiatric: No problem reported Endocrine: No fatigue Hematologic / Lymphatic: No problem reported Integumentary: + new/changing skin lesions (right inner thigh with a new apparent bug bite discovered on exam here the patient and family were unaware of ) Allergic / Immunologic: No problem reported Physical Exam Vital Signs Date Time Temp Pulse Resp B/P (MAP) Pulse Ox O2 Delivery O2 Flow Rate FiO2 02/18/17 10:00 63 18 175/87 95 Room Air 02/18/17 08:41 64 20 125/74 96 Room Air 02/18/17 08:40 67 125/74 69 132/73 71 02/18/17 07:41 97 Room Air 02/18/17 07:21 67 02/18/17 07:19 37.0 68 20 162/88 97 Room Air General Appearance: WD/WN, no apparent distress Head: normocephalic, atraumatic Eyes: normal inspection, PERRL, EOMI, sclerae normal ENT: + pertinent finding (very hard of hearing, not wearing hearing aids, edentulous, no facial droop) Neck: supple, no adenopathy, thyroid normal, no JVD, trachea midline Respiratory/Chest: lungs clear, normal breath sounds, no respiratory distress, no accessory muscle use Cardiovascular: regular rate, rhythm, no edema, no gallop, no JVD, normal peripheral pulses, + systolic murmur (3-6 systolic ejection murmur heard best at the right upper sternal border) Abdomen/GI: normal bowel sounds, non tender, soft, + pertinent finding (large midline laparotomy scar with reducible ventral incisional hernia) Genitourinary - Male: normal male genitalia, normal phallus Back: normal inspection, normal range of motion, + pertinent finding (no tenderness to palpation over spinous processes) Extremities/Musculoskelatal: normal inspection (good muscle bulk throughout, increased tone throughout all muscle groups), no calf tenderness, normal capillary refill, no pedal edema, normal range of motion, non-tender Neurologic/Psych: child life assistant II-XII nml as tested, no motor/sensory deficits (has 5 out of 5 strength throughout bilateral upper and lower extremities, sensation is intact to light touch throughout upper and lower extremities, DTRs 2+ in biceps, triceps, brachial radialis bilaterally, absent DTRs in the patella and Achilles), alert, normal mood/affect, oriented x 3 Skin: normal color, warm/dry, + pertinent finding (right medial distal thigh with a 1 cm circular erythematous papule with black eschar centrally) Diagnostics Laboratory Results Results Past 24 Hours Test 02/18/17 07:35 02/18/17 09:30 Range/Units White Blood Count 6.95 4.8-10.8 K/uL Red Blood Count 4.49 4.7-6.1 M/uL Hemoglobin 12.4 14.0-18.0 g/dL Hematocrit 37.6 42-52 % Mean Corpuscular Volume 83.7 80-100 fL Mean Corpuscular Hemoglobin 27.6 25-34 pg Mean Corpuscular Hemoglobin Concent 33.0 32-36 g/dl RDW Standard Deviation 49.2 36.4-46.3 fL RDW Coefficient of Variation 16.1 11.5-14.5 % Platelet Count 184 130-400 K/uL Mean Platelet Volume 9.4 7.4-10.4 fL Sodium Level 135 136-145 mmol/L Potassium Level 3.9 3.5-5.1 mmol/L Chloride Level 103 98-107 mmol/L Carbon Dioxide Level 25 21-32 mmol/L Anion Gap 7.0 3-11 mmol/L Blood Urea Nitrogen 15 7-18 mg/dl Creatinine 0.99 0.60-1.40 mg/dl Est Creatinine Clear Calc Drug Dose 63.6 ml/min Estimated GFR () 81.3 Estimated GFR (Non- 70.1 BUN/Creatinine Ratio 15.6 10-20 Random Glucose 102 70-99 mg/dl Calcium Level 8.7 8.5-10.1 mg/dl Total Bilirubin 0.5 0.2-1 mg/dl Aspartate Amino Transf (AST/SGOT) 33 15-37 U/L Alanine Aminotransferase (ALT/SGPT) 9 12-78 U/L Alkaline Phosphatase 97 45-117 U/L Troponin I < 0.015 0-0.045 ng/ml Total Protein 7.4 6.4-8.2 gm/dl Albumin 3.8 3.4-5.0 gm/dl Globulin 3.6 2.5-4.0 gm/dl Albumin/Globulin Ratio 1.1 0.9-2 Urine Color YELLOW Urine Appearance CLEAR CLEAR Urine pH 6.5 4.5-7.5 Urine Specific [place] 1.017 1.000-1.030 Urine Protein NEG NEG Urine Glucose (UA) NEG NEG Urine Ketones NEG NEG Urine Occult Blood NEG NEG Urine Nitrite NEG NEG Urine Bilirubin NEG NEG Urine Urobilinogen NEG NEG Urine Leukocyte Esterase NEG NEG Diagnostic Radiology HEAD WITHOUT CONTRAST (CT) CT DOSE: 580.48 mGy.cm HISTORY: Mental status change can't walk TECHNIQUE: Multiaxial CT images of the head were performed without the use of intravenous contrast. A dose lowering technique was utilized adhering to the principles of ALARA. Comparison: 11/03/2016 Findings: The paranasal sinuses and mastoid air cells are clear. Findings of mild cerebral atrophy. Mild/moderate chronic small vessel change of aging. No evidence for acute intracranial hemorrhage. No midline shift. No change in the prior exam. Impression: Chronic and small vessel change of aging. No acute intracranial abnormality. No change from the prior exam. 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 He resides with his daughter and son-in-law who noted that he was in the bathroom at 4:00 this morning and had no difficulty walking at that time. A couple of hours later in the morning, the patient was heard banging his cane asking for help as he was able to stand up, but could not initiate ambulation. He has full strength throughout his legs and no weakness anywhere else, but just continued to not be able to walk in the ER. Attempts were made to place him at acute rehabilitation from the ER, but there were no beds available. Ambulatory dysfunction/MSAP-Laboratory workup and CT of the head were all essentially normal and there were no signs of infection. He has full strength throughout his lower extremities, but cannot initiate gait and this is likely secondary to the Parkinson-like features of his disorder. This is likely related to his unfortunate chronic neuromuscular disease, and he will be admitted for further evaluation and treatment, with the hopes of acute rehabilitation placement in the near future. I discussed the case with Dr. Al of neurology. There is no need for any further imaging at this time. -We'll trial an increase in his Sinemet CR to 50/200 3 times a day -Neurology consultation appreciated -PT/OT consultations and acute rehabilitation placement -Check iron studies given his chronic anemia, vitamin D level, TSH, and Lyme titer given the recent tick bite although may be too early for this to turn positive -Interestingly, it appears Dr. Carrera added on amantadine 100 mg by mouth twice a day at the last office visit in December, but the son-in-law that took the patient to the appointment was completely unaware of this and they have not started this medication-I discussed with Dr. Al and we will hold off on starting it at this time but could add it later CAD status post drug-eluting stent to RCA/hypertension/chronic diastolic CHF/ moderate /mild AI/dyslipidemia/lone atrial fibrillation/history of intermittent LBBB-all issues currently stable at this time, no evidence of volume overload, is in a normal sinus rhythm on EKG. -Continue home aspirin, statin COPD-no acute issues -Continue his Incruse Ellipta inhaler, however he does have intermittent urinary retention and this may need to be discontinued -Consider replacement with LABA or LABA/ICS instead Chronic iron deficiency anemia-hemoglobin at baseline here at 12.4, microcytic with elevated RDW -Repeat iron studies and consider adding on iron supplementation if ferritin or serum iron are low -BPH/history of urinary retention-did have to be catheterized in the ER for urine sample, patient denies any acute issues. On a previous admission with gait dysfunction, he was found to be retaining urine which may be related again this time -Bladder scan every shift and straight cath versus place [place] for PVR greater than 350 ML's -Continue his Flomax and Avodart or formulary replacement while here -Consider discontinuation of his LAMA inhaler as above History of severe orthostatic hypotension-could be related to his Parkinson symptoms versus side effect of medications, is noted in neurology notes in outpatient record. Orthostatic vitals on admission were normal -Watch for this especially given that we are increasing his Sinemet, remains on Flomax -Consider adding Florinef in future GERD-stable at this time -Continue Protonix Vitamin D12 and D deficiencies-checking vitamin D level given his weakness, he has not macrocytic on CBC, no need to check vitamin B12-it was normal one year ago -Continue by mouth vitamin D and B12 replacement Prophylaxis-heparin subcutaneously Disposition-PT/OT E Fels and may need acute rehabilitation placement in 1-2 days Level of Care Med/Surg Resuscitation Status FULL RESUSCITATION VTE Prophylaxis VTE Risk Assessment Done? Y/N: Yes Risk Level: Low Given or contraindicated: Unfractionated heparin SQ Additional Copies To RV. Garcia MD; Luiza Adkins D.O.
[2017-02-18 13:33] VITALS: BP 158/91; PULSE 79; O2SAT 93
[2017-02-18 13:53] LABS: INR 1.1 (0.9-1.1); PARTIAL THROMBOPLASTIN RATIO 1.2; PROTHROMBIN TIME (PATIENT) 11.3 SECONDS (9.0-12.0)
[2017-02-18] MEDS: CARBIDOPA/LEVODOPA 50/200MG EXT REL TAB PO SCH ×2 (14:36→20:57)
[2017-02-18] MEDS ORDERED: IV FLUIDS COMPLETED PRN (14:45)
[2017-02-18] MEDS ORDERED: FERROUS FUMARATE CONTR REL CAP 65 MG CAPCR PO ONE (15:06)
[2017-02-18] MEDS: HEPARIN SOD 5000 UNIT/0.5 ML CARP SQ SCH ×2 (15:19→21:00)
[2017-02-18] MEDS: AVODART-ORDER AWAITING ACTION SCH ×2 (15:43→21:02)
[2017-02-18 16:00] VITALS: BP 174/85; PULSE 67; TEMP 36.7; O2SAT 96
[2017-02-18 16:08] LABS: CKMB/CK RATIO 1.4 (0-3.0)
[2017-02-18] MEDS ORDERED: INFLUENZA VACCINE HIGH DOSE 65+ 0.5 ML SYR IM. ONE (16:15)
[2017-02-18] MEDS ORDERED: INFLUENZA ADMINISTRATION CHARGE ONE (16:15)
[2017-02-18] MEDS: POLYETHYLENE (MIRALAX) 17 GM PACK PO SCH (16:18)
[2017-02-18] MEDS: PANTOprazole SOD 40 MG TAB PO SCH (16:19)
[2017-02-18] MEDS ORDERED: LISINOPRIL 5 MG TAB PO ONE (18:45)
[2017-02-18 19:06] VITALS: BP 164/92; PULSE 72
[2017-02-18 20:00] VITALS: O2SAT 96
[2017-02-18] MEDS: TAMSULOSIN HCL 0.4 MG CAP PO SCH (20:56)
[2017-02-19] VITALS (7 sets, daily range): BP systolic 75–150; BP diastolic 47–90; PULSE 67–92; TEMP 36.6–38.7; O2SAT 95–96
[2017-02-19 02:02] LABS: HEMATOCRIT 37.9 % (42-52); MEAN CELL VOLUME 82.9 fL (80-100); MEAN CORPUSCULAR HEMOGLOBIN 27.6 pg (25-34); MEAN CORPUSCULAR HGB CONC 33.2 g/dl (32-36); MEAN PLATELET VOLUME 9.4 fL (7.4-10.4); PLATELET COUNT 190 K/uL (130-400); RED BLOOD COUNT 4.57 M/uL (4.7-6.1); WHITE BLOOD COUNT 7.25 K/uL (4.8-10.8)
[2017-02-19 02:23] LABS: BUN/CREATININE RATIO 17.5 (10-20); CALCIUM 8.6 mg/dl (8.5-10.1); CREATININE 0.88 mg/dl (0.60-1.40); POTASSIUM 3.9 mmol/L (3.5-5.1)
[2017-02-19 02:27] LABS: COMPLETE YES; EOSINOPHIL % 1.7 %; LYMPH ABS # 0.57 K/uL (1.2-3.4); LYMPHOCYTE % 7.8 %; NEUTROPHILS % 60.9 %; OVALOCYTES 1+; VARIANT LYM ABS # 1.64 K/uL; VARIANT LYMPHOCYTE % 22.6 %
[2017-02-19] MEDS: AVODART-ORDER AWAITING ACTION SCH ×2 (07:17→16:00)
[2017-02-19] MEDS: ATORVASTATIN 20 MG TAB PO SCH (08:40)
[2017-02-19] MEDS: ASPIRIN 81 MG ECTAB PO SCH (08:40)
[2017-02-19] MEDS: LISINOPRIL 5 MG TAB PO SCH (08:41)
[2017-02-19] MEDS: IBUPROFEN 200 MG TAB PO SCH (08:41)
[2017-02-19] MEDS: FERROUS FUMARATE CONTR REL CAP 65 MG CAPCR PO SCH (08:42)
[2017-02-19] MEDS: POLYETHYLENE (MIRALAX) 17 GM PACK PO SCH (08:42)
[2017-02-19] MEDS: CYANOCOBALAMIN 500 MCG TAB (VIT B-12) PO SCH (08:42)
[2017-02-19] MEDS: CARBIDOPA/LEVODOPA 50/200MG EXT REL TAB PO SCH ×3 (08:42→21:40)
--- NOTE | 2017-02-19 08:55 | Neurology Consultation ---
Neurology Consultation Date of Consultation: Feb 19, 2017. Attending Physician: Shama Pires MD Primary Care Physician: RV. Garcia MD Reason for Consultation: Patient is an 81-year-old, who was asked to see the request of Dr. Pires, for neurologic evaluation regarding gait disturbance and other issues, given a diagnosis of multi systems atrophy History of Present Illness Source: patient, caregiver, clinic records, hospital records I 1st saw this patient in January of 2016, when he was admitted to the hospital with gait disturbance and dizziness. He had been following for about 2 years prior to that with Dr. Adkins for mild cognitive impairment, essential tremor , significant orthostatic hypotension, gait disturbance, blurry and double vision, and dizziness. In January of 2016 MRI of the brain showed significant generalized atrophy with hydrocephalus ex vacuo. There was a moderate amount of old small vessel ischemic changes. MR angiography of the head and neck were unremarkable. Echocardiogram revealed some moderate left ventricular hypertrophy and moderate aortic stenosis. He was noted to be markedly orthostatic and had a very poor gait. He had mild posture and action tremor. He scored 23/30 points in a mini- mental status examination. He was noted to have a generalized polyneuropathy. Patient was put on low-dose carbidopa/levodopa. He had a fair response to this low dose but the immediate release created more orthostasis. He has been on sustained release carbidopa/levodopa 25/100 3 times a day. He was last seen by Dr. Adkins December 30, 2016 head was having significant orthostasis, gait problems, bradykinesia, and cognitive issues. She wanted to initiate amantadine 100 mg twice a day to see if this would help parkinsonism trying to avoid increasing the carbidopa/levodopa. He never did start the amantadine. The patient was doing about the same in general, but noted an inability to walk or initiate movement in the [employer] hours of February 18. He felt as if his feet or stocking he could get his balance. There is no history of head trauma or falls recently. He did have something very similar to this in October but it did not last as long. He arrived to the emergency room on February 18 at 7:19 a.m. one nine hours with a temperature of 37.0, pulse 68, respiratory rate 20, blood pressure 162/88, and O2 saturation 97%. On exam his strength seemed reasonable but he could not maintain postural walk. CT scan of the head showed generalized atrophy and old small vessel ischemic changes. There were no acute changes or subdural hematoma findings. CBC showed mild anemia. Chem profile showed a mildly low sodium 135 with a low vitamin D of 26, normal TSH, normal B12, and negative Lyme titers Patient himself denies any pain or headache. He does have some neck discomfort occasionally. If he stares too long at something he will get some blurry vision and occasionally has double vision as before. He has noted recently that it has been hard to urinate. Occasionally his feet are numb and he can't walk. He can get lightheaded with standing. He feels his tremor is about the same as usual. Past Medical/Surgical History Medical Problems: (1) Ambulatory dysfunction Status: Acute (2) Dysarthria Status: Acute (3) Elevated WBCs Status: Acute (4) History of Parkinson's disease Status: Acute (5) Lethargy Status: Acute (6) Sepsis Status: Acute (7) Urinary retention Status: Acute (8) UTI (urinary tract infection) Status: Acute Multiple systems atrophy, Parkinson's subtype Mild cognitive impairment Mild resting and postural tremor with no other abnormal involuntary movements Gait disturbance with bradykinesia, rigidity, and polyneuropathy Urinary retention, with BPH, followed by Urology Hearing loss bilaterally, chronic History of significant orthostasis History of hypertension Dyslipidemia Chronic iron deficiency anemia COPD Gastroesophageal reflux disease Coronary artery disease post stenting and a remote history of AFib Restless leg syndrome Vitamin-D deficiency Post right thoracotomy with right upper lobectomy, September 2014, with squamous cell lung cancer, 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 He is uncertain about his father's history. Mother: diabetes Sibling(s): HTN, diabetes Grandfather: pertinent history of Social History Patient smoked cigarettes quitting in 2000 (90 pack year history). He does not use alcohol. 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 Smoking Status: Former smoker Smokeless Tobacco Use: No Alcohol Use: none Drug Use: none Marital Status: Housing Status: lives with family Occupation Status: retired Allergies Coded Allergies: No Known Allergies (Unverified , 10/28/17) Current Inpatient Medications Current Inpatient Medications Medications (Trade) Dose Ordered Sig/Humberto Route Start Time Stop Time Status Last Admin Dose Admin Acetaminophen (Tylenol Tab) 650 mg Q4H PRN PO 02/18/17 12:00 03/20/17 11:59 02/19/17 00:21 650 MG Heparin Sodium (Porcine) (Heparin Sq 5000 Unit/0.5ml) 5,000 unit Q12 SQ 02/18/17 14:25 03/20/17 14:24 02/18/17 15:19 5,000 UNIT Aspirin (Ecotrin Tab) 81 mg QAM PO 02/19/17 09:00 03/21/17 08:59 Atorvastatin Calcium (Lipitor Tab) 20 mg DAILY PO 02/19/17 09:00 03/21/17 08:59 Cyanocobalamin (Vitamin B-12 Tab) 500 mcg DAILY PO 02/19/17 09:00 03/21/17 08:59 Docusate Sodium (coLACE CAP) 100 mg DAILY@1200 PO 02/19/17 12:00 03/21/17 11:59 Ibuprofen (Advil Tab) 200 mg QAM PO 02/19/17 09:00 03/21/17 08:59 Carbidopa/Levodopa (Sinemet Cr 50/ 200MG Tab) 1 tab TID PO 02/18/17 14:00 03/20/17 13:59 02/18/17 20:57 1 TAB Pantoprazole Sodium (Protonix Tab) 40 mg DAILY@1630 PO 02/18/17 16:30 03/20/17 16:29 02/18/17 16:19 40 MG Senna (Senokot Tab) 8.6 mg DAILY@1200 PO 02/19/17 12:00 03/21/17 11:59 Tamsulosin HCl (Flomax Cap) 0.4 mg HS PO 02/18/17 21:00 03/20/17 20:59 02/18/17 20:56 0.4 MG Miscellaneous Information (Order Awaiting Action) 1 ea QS N/A 02/18/17 16:00 03/20/17 15:59 Miscellaneous Information (Order Awaiting Action) 1 ea QS N/A 02/18/17 16:00 03/20/17 15:59 Miscellaneous (Iv Fluids Completed) 1 ea PRN PRN N/A 02/18/17 14:45 02/18/18 14:44 Cholecalciferol (Vitamin D Tab) 2,000 inter.unit QAM PO 02/19/17 09:00 03/21/17 08:59 Polyethylene (Miralax Powder Packet) 17 gm DAILY PO 02/18/17 15:15 03/20/17 11:59 02/18/17 16:18 17 GM Ferrous Fumarate (Елена-Sequels Contr Rel Cap) 65 mg QAM PO 02/19/17 09:00 03/21/17 08:59 Lisinopril (Zestril Tab) 5 mg QAM PO 02/19/17 09:00 03/21/17 08:59 Review of Systems Constitutional: + weakness, + fatigue, No fever Eyes: + worsening of vision, + diplopia ENT: + hearing loss, No trouble swallowing Respiratory: + cough, + shortness of breath Cardiovascular: No chest pain, No palpitations Abdomen: No pain, No nausea Musculoskeletal: No joint pain, No muscle pain Genitourinary - Male: + urinary retention, No dysuria, No urinary incontinence Neurologic: + memory loss, + weakness, + balance problems, No numbness/tingling , No vertigo Psychiatric: No depression symptoms, No anxiety Endocrine: + fatigue Hematologic / Lymphatic: No abnormal bleeding/bruising Integumentary: No rash Allergic / Immunologic: No hives Physical Exam Vital Signs (Past 24 Hrs): Date Time Temp Pulse Resp B/P (MAP) Pulse Ox O2 Delivery O2 Flow Rate FiO2 02/19/17 07:22 37.1 71 18 120/73 (89) 95 Room Air 02/19/17 04:00 37.7 02/19/17 00:11 38.7 92 20 150/90 (110) 96 Room Air 02/19/17 00:00 96 Room Air 02/18/17 20:00 96 Room Air 02/18/17 19:06 72 164/92 (116) 02/18/17 16:00 Room Air 02/18/17 16:00 36.7 67 18 174/85 (114) 96 Room Air 02/18/17 13:33 79 18 158/91 (113) 93 Room Air 02/18/17 12:53 37.0 70 18 181/93 (122) 92 Room Air 02/18/17 12:34 63 20 159/94 97 02/18/17 12:00 66 20 175/89 98 Room Air 02/18/17 11:30 97 Room Air 02/18/17 10:00 63 18 175/87 95 Room Air 02/18/17 08:41 64 20 125/74 96 Room Air 02/18/17 08:40 67 125/74 69 132/73 71 Patient is right-handed. The patient is awake and alert. Speech is normal without aphasia or dysarthria. Mood and affect are normal appropriate. Patient is oriented to age, name, place, month, and year. His long-term memory is confused and he does have significant short-term memory issues. The discs are difficult to visualize due to small pupil size but seem unremarkable. Pupils are 2mm bilaterally and reactive to light. Extraocular eye muscles are intact without nystagmus. He has no horizontal or vertical gaze palsy. Visual acuity and visual allen seem normal grossly to confrontation. There are no deficits to sensation of the face bilaterally. Corneal reflexes are positive bilaterally. Facial strength and symmetry is normal bilaterally. Hearing is decreased bilaterally. Palate moves well without asymmetry. There is normal sternocleidomastoid and trapezius strength bilaterally. Tongue is midline with good strength bilaterally. Neck is with full range of motion without discomfort. There are no cervical bruits. There are no cranial or ocular bruits. Heart is without murmur. Cervical, thoracic, and lumbar spine are nontender to palpation. Gait is poor to non testable even with 3 people present. He cannot get from a lying to a sitting position without help as he cannot initiate the movement and seems rigid/bradykinetic. He loses his balance backwards when attempting to sit. He cannot rise from a sitting to a standing position and loses his balance backwards without support. With outstretched arms there is no drift. There are no resting tremors. There are mild postural and action tremor bilaterally. There is no ataxia with finger- to-nose testing. There is reasonable to mildly slowed facility in the hands. There are no other abnormal involuntary movements noted. Motor strength is 5/5 diffusely in the arms bilaterally including deltoids, biceps, brachioradialis, wrist flexors and extensors, mobile heavy equipment mechanic, and intrinsic hand muscles. Motor strength is 5/5 diffusely in the legs bilaterally including hip flexors, quadriceps, hamstring, gastrocnemius, tibialis anterior, tibialis posterior, and peroneii muscles bilaterally. This patient is not weak. The limbs have some mild atrophy distally in the small muscles of the hands and feet bilaterally. The patient has significant cogwheel rigidity legs greater than arms bilaterally. He has a moderate masklike face and significant bradykinesia in general. Sensory examination is intact to pin and touch throughout all four limbs. Reflexes are 1/4 in the biceps, triceps, and brachioradialis tendons bilaterally. Quadriceps and Achilles tendon reflexes are absent bilaterally. Toes are downgoing with plantar stimulation bilaterally. Peripheral pulses are present and of normal quality distally in all four limbs. There is no peripheral edema noted. Laboratory Results Past 24 Hours: 02/19/17 01:39 Red Blood Count 4.57, Mean Corpuscular Volume 82.9, Mean Corpuscular Hemoglobin 27.6, Mean Corpuscular Hemoglobin Concent 33.2, Mean Platelet Volume 9.4 02/19/17 01:39 Test 02/18/17 09:30 02/18/17 13:15 02/18/17 15:26 02/19/17 01:39 Urine Color YELLOW Urine Appearance CLEAR (CLEAR) Urine pH 6.5 (4.5-7.5) Urine Specific [place] 1.017 (1.000-1.030) Urine Protein NEG (NEG) Urine Glucose (UA) NEG (NEG) Urine Ketones NEG (NEG) Urine Occult Blood NEG (NEG) Urine Nitrite NEG (NEG) Urine Bilirubin NEG (NEG) Urine Urobilinogen NEG (NEG) Urine Leukocyte Esterase NEG (NEG) Prothrombin Time 11.3 SECONDS (9.0-12.0) Prothromb Time International Ratio 1.1 (0.9-1.1) Activated Partial Thromboplast Time 30.3 SECONDS (21.0-31.0) Partial Thromboplastin Ratio 1.2 Total Creatine Kinase 123 U/L (39-308) Creatine Kinase MB 1.7 ng/ml (0.5-3.6) Creatine Kinase MB Ratio 1.4 (0-3.0) Troponin I < 0.015 ng/ml (0-0.045) Vitamin B12 Level 665 pg/mL (211-911) White Blood Count 7.25 K/uL (4.8-10.8) Red Blood Count 4.57 M/uL (4.7-6.1) Hemoglobin 12.6 g/dL (14.0-18.0) Hematocrit 37.9 % (42-52) Mean Corpuscular Volume 82.9 fL (80-100) Mean Corpuscular Hemoglobin 27.6 pg (25-34) Mean Corpuscular Hemoglobin Concent 33.2 g/dl (32-36) Platelet Count 190 K/uL (130-400) Mean Platelet Volume 9.4 fL (7.4-10.4) RDW Standard Deviation 48.9 fL (36.4-46.3) RDW Coefficient of Variation 16.1 % (11.5-14.5) Neutrophils % (Manual) 60.9 % Lymphocytes % (Manual) 7.8 % Variant Lymphocytes % (manual) 22.6 % Monocytes % (Manual) 7.0 % Eosinophils % (Manual) 1.7 % Neutrophils # (Manual) 4.42 K/uL (1.4-6.5) Total Absolute Neutrophils 4.42 K/uL (1.4-6.5) Lymphocytes # (Manual) 0.57 K/uL (1.2-3.4) Absolute Variant Lymphocytes 1.64 K/uL Total Absolute Lymphocytes 2.20 K/uL (1.2-3.4) Monocytes # (Manual) 0.51 K/uL (0.11-0.59) Eosinophils # (Manual) 0.12 K/uL (0-0.5) Ovalocytes 1+ Anion Gap 7.0 mmol/L (3-11) Est Creatinine Clear Calc Drug Dose 71.5 ml/min Estimated GFR () 92.1 Estimated GFR (Non- 79.4 BUN/Creatinine Ratio 17.5 (10-20) Calcium Level 8.6 mg/dl (8.5-10.1) Imaging HEAD WITHOUT CONTRAST (CT) CT DOSE: 580.48 mGy.cm HISTORY: Mental status change can't walk TECHNIQUE: Multiaxial CT images of the head were performed without the use of intravenous contrast. A dose lowering technique was utilized adhering to the principles of ALARA. Comparison: 11/03/2016 Findings: The paranasal sinuses and mastoid air cells are clear. Findings of mild cerebral atrophy. Mild/moderate chronic small vessel change of aging. No evidence for acute intracranial hemorrhage. No midline shift. No change in the prior exam. Impression: Chronic and small vessel change of aging. No acute intracranial abnormality. No change from the prior exam. The above report was generated using voice recognition software. It may contain grammatical, syntax or spelling errors. Electronically signed by: Ezekiel Ivan M.D. 02/18/2017 9:22 AM Impression 1. Gait disturbance, with inability to initiate getting up to a sitting or standing position or initiating gait, more acutely worse recently. Patient has a diagnosis of multiple systems atrophy, Parkinson's subtype, manifested by: - significant bradykinesia and cogwheel rigidity of the limbs - overt postural instability and inability to initiate sitting or standing. - significant orthostatic hypotension which frequently leads to lightheadedness and dizziness. He does not have vertigo or an inner ear dysfunction - mild postural and action tremor and no resting tremor. - [id number] cognitive impairment - blurry/double vision intermittently, stable He does not have ataxia of the limbs, significant apraxia, or other abnormal involuntary movements, such as myoclonus He has a generalized polyneuropathy of a mild nature which would add to gait disturbance as well. 2. Significant urinary retention, with benign prostatic hypertrophy, followed by Urology. 3. Moderate to severe bilateral hearing loss. 4. Vitamin-D deficiency 5. Fever of uncertain etiology I cannot exclude urinary tract infection in lieu of diagnosis #2 Consider Respiratory origin as well, given history of thoracotomy with lung cancer and COPD 6. Chronic iron deficiency anemia 7. Restless legs syndrome, stable Plan Unfortunately, multi systems atrophy is a progressive neurodegenerative condition which is generally non treatable, although there can be a mild response to carbidopa/levodopa and some . 1. Increase carbidopa/levodopa to 50/200 ER, twice daily 2. Given the autonomic nervous system dysfunction with MSA, it is difficult to increase carbidopa levodopa, or give other anti parkinsonian medication, as this could make orthostasis worse. 3. Initiate amantadine 100 mg p.o. b.i.d. This is a rather weak anti parkinsonian medication, but may help and certainly should not make his orthostasis worse. 4. Replace vitamin-D, recommend 5000 units D3 daily 5. This patient needs aggressive physical and occupational therapy treatment. 6. Consider rehabilitation hospital stay 7. If lightheadedness/orthostasis becomes worse, consider compression stockings , and other treatment measures I spoke with Dr. Leigh regarding this case, including differential diagnoses and treatment options. Patient should follow up with Dr. Adkins as an outpatient I spent a total of 100 minutes with this case including records review, discussion with providers, and at the bedside with the patient.
[2017-02-19] MEDS ORDERED: CHOLECALCIFEROL 1000 INTER.UNIT TAB PO SCH ×2 (09:00)
[2017-02-19] MEDS: HEPARIN SOD 5000 UNIT/0.5 ML CARP SQ SCH ×2 (09:19→21:41)
[2017-02-19 09:30] LABS: URINE APPEARANCE CLEAR (CLEAR); URINE BILIRUBIN NEG (NEG); URINE COLOR DK YELLOW; URINE EPITHELIAL CELL AUTO >30 /lpf (0-5); URINE NITRITE NEG (NEG); URINE PH 6.5 (4.5-7.5); URINE SPECIFIC GRAVITY 1.023 (1.000-1.030); UROBILINOGEN NEG (NEG); ZZUR CULT IF INDIC CLEAN CATCH NO
[2017-02-19 09:39] LABS: MANUAL MICROSCOPIC REQUIRED? NO; REVIEW REQ? YES
[2017-02-19] MEDS: SENNA 8.6 MG TAB PO SCH (11:51)
[2017-02-19] MEDS: DOCUSATE SODIUM 100 MG CAP PO SCH (11:51)
[2017-02-19] MEDS: PANTOprazole SOD 40 MG TAB PO SCH (17:26)
[2017-02-19] MEDS: TAMSULOSIN HCL 0.4 MG CAP PO SCH (21:40)
[2017-02-20 00:02] VITALS: BP 116/76; PULSE 64; TEMP 36.9; O2SAT 96
--- NOTE | 2017-02-20 00:41 | Progress Note ---
Subjective Date of Service: Feb 20, 2017. Subjective Pt evaluation today including: conversation w/ patient, physical exam, chart review, lab review 81 year old male who cam in with generalized weakness and severe parkinson's. Patient requires placement for nursing facility. Patient denies any symptoms of fever, chills, nausea, vomiting, cough, dysuria. Problem List Medical Problems: (1) Ambulatory dysfunction Status: Acute (2) Dysarthria Status: Acute (3) Elevated WBCs Status: Acute (4) History of Parkinson's disease Status: Acute (5) Lethargy Status: Acute (6) Sepsis Status: Acute (7) Urinary retention Status: Acute (8) UTI (urinary tract infection) Status: Acute Review of Systems Constitutional: + fever (noted in vitals), No chills Respiratory: No cough, No sputum Cardiac: No chest pain, No orthopnea Abdomen: No pain, No nausea Neurologic: + weakness, + balance problems Psychiatric: No depression symptoms, No anhedonism Heme: No abnormal bleeding/bruising Endo: No fatigue All Other Systems: Reviewed and Negative Medications Current Inpatient Medications Medications (Trade) Dose Ordered Sig/Humberto Route Start Time Stop Time Status Last Admin Dose Admin Acetaminophen (Tylenol Tab) 650 mg Q4H PRN PO 02/18/17 12:00 03/20/17 11:59 02/19/17 00:21 650 MG Heparin Sodium (Porcine) (Heparin Sq 5000 Unit/0.5ml) 5,000 unit Q12 SQ 02/18/17 14:25 03/20/17 14:24 02/19/17 21:41 5,000 UNIT Aspirin (Ecotrin Tab) 81 mg QAM PO 02/19/17 09:00 03/21/17 08:59 02/19/17 08:40 81 MG Atorvastatin Calcium (Lipitor Tab) 20 mg DAILY PO 02/19/17 09:00 03/21/17 08:59 02/19/17 08:40 20 MG Cyanocobalamin (Vitamin B-12 Tab) 500 mcg DAILY PO 02/19/17 09:00 03/21/17 08:59 02/19/17 08:42 500 MCG Docusate Sodium (coLACE CAP) 100 mg DAILY@1200 PO 02/19/17 12:00 03/21/17 11:59 02/19/17 11:51 100 MG Ibuprofen (Advil Tab) 200 mg QAM PO 02/19/17 09:00 03/21/17 08:59 02/19/17 08:41 200 MG Carbidopa/Levodopa (Sinemet Cr 50/ 200MG Tab) 1 tab TID PO 02/18/17 14:00 03/20/17 13:59 02/19/17 21:40 1 TAB Pantoprazole Sodium (Protonix Tab) 40 mg DAILY@1630 PO 02/18/17 16:30 03/20/17 16:29 02/19/17 17:26 40 MG Senna (Senokot Tab) 8.6 mg DAILY@1200 PO 02/19/17 12:00 03/21/17 11:59 02/19/17 11:51 8.6 MG Tamsulosin HCl (Flomax Cap) 0.4 mg HS PO 02/18/17 21:00 03/20/17 20:59 02/19/17 21:40 0.4 MG Miscellaneous Information (Order Awaiting Action) 1 ea QS N/A 02/18/17 16:00 03/20/17 15:59 Miscellaneous Information (Order Awaiting Action) 1 ea QS N/A 02/18/17 16:00 03/20/17 15:59 Miscellaneous (Iv Fluids Completed) 1 ea PRN PRN N/A 02/18/17 14:45 02/18/18 14:44 Cholecalciferol (Vitamin D Tab) 2,000 inter.unit QAM PO 02/19/17 09:00 03/21/17 08:59 02/19/17 08:40 2,000 INTER.UNIT Polyethylene (Miralax Powder Packet) 17 gm DAILY PO 02/18/17 15:15 03/20/17 11:59 02/19/17 08:42 17 GM Ferrous Fumarate (Елена-Sequels Contr Rel Cap) 65 mg QAM PO 02/19/17 09:00 03/21/17 08:59 02/19/17 08:42 65 MG Lisinopril (Zestril Tab) 5 mg QAM PO 02/19/17 09:00 03/21/17 08:59 02/19/17 08:41 5 MG Objective Vital Signs Date Time Temp Pulse Resp B/P (MAP) Pulse Ox O2 Delivery O2 Flow Rate FiO2 02/20/17 00:02 36.9 64 16 116/76 (89) 96 Room Air 02/19/17 20:00 Room Air 02/19/17 15:48 Room Air 02/19/17 15:13 36.6 67 20 120/74 (89) 95 Room Air 74.0 02/19/17 11:52 74 115/67 (83) 02/19/17 10:50 122/56 (78) 75/49 (58) 91/47 (62) 02/19/17 08:00 Room Air 02/19/17 07:22 37.1 71 18 120/73 (89) 95 Room Air 02/19/17 04:00 37.7 Physical Exam Comments: General Appearance: WD/WN, no apparent distress Head: normocephalic, atraumatic Eyes: normal inspection, PERRL, EOMI, sclerae normal ENT: + pertinent finding (very hard of hearing, not wearing hearing aids, edentulous, no facial droop) Neck: supple, no adenopathy, thyroid normal, no JVD, trachea midline Respiratory/Chest: lungs clear, normal breath sounds, no respiratory distress, no accessory muscle use Cardiovascular: regular rate, rhythm, no edema, no gallop, no JVD, normal peripheral pulses, + systolic murmur (3-6 systolic ejection murmur heard best at the right upper sternal border) Abdomen/GI: normal bowel sounds, non tender, soft, + pertinent finding (large midline laparotomy scar with reducible ventral incisional hernia) Genitourinary - Male: normal male genitalia, normal phallus Back: normal inspection, normal range of motion, + pertinent finding (no tenderness to palpation over spinous processes) Extremities/Musculoskelatal: normal inspection (good muscle bulk throughout, increased tone throughout all muscle groups), no calf tenderness, normal capillary refill, no pedal edema, normal range of motion, non-tender Neurologic/Psych: 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 nml as tested, no motor/sensory deficits (has 5 out of 5 strength throughout bilateral upper and lower extremities, sensation is intact to light touch throughout upper and lower extremities, DTRs 2+ in biceps, triceps, brachial radialis bilaterally, absent DTRs in the patella and Achilles), alert, normal mood/affect, oriented x 3 Skin: normal color, warm/dry, + pertinent finding (right medial distal thigh with a 1 cm circular erythematous papule with black eschar centrally) Laboratory Results Last 24 Hours Test 02/19/17 01:39 02/19/17 09:00 White Blood Count 7.25 K/uL Red Blood Count 4.57 M/uL Hemoglobin 12.6 g/dL Hematocrit 37.9 % Mean Corpuscular Volume 82.9 fL Mean Corpuscular Hemoglobin 27.6 pg Mean Corpuscular Hemoglobin Concent 33.2 g/dl Platelet Count 190 K/uL Mean Platelet Volume 9.4 fL RDW Standard Deviation 48.9 fL RDW Coefficient of Variation 16.1 % Neutrophils % (Manual) 60.9 % Lymphocytes % (Manual) 7.8 % Variant Lymphocytes % (manual) 22.6 % Monocytes % (Manual) 7.0 % Eosinophils % (Manual) 1.7 % Neutrophils # (Manual) 4.42 K/uL Total Absolute Neutrophils 4.42 K/uL Lymphocytes # (Manual) 0.57 K/uL Absolute Variant Lymphocytes 1.64 K/uL Total Absolute Lymphocytes 2.20 K/uL Monocytes # (Manual) 0.51 K/uL Eosinophils # (Manual) 0.12 K/uL Ovalocytes 1+ Sodium Level 135 mmol/L Potassium Level 3.9 mmol/L Chloride Level 103 mmol/L Carbon Dioxide Level 25 mmol/L Anion Gap 7.0 mmol/L Blood Urea Nitrogen 15 mg/dl Creatinine 0.88 mg/dl Est Creatinine Clear Calc Drug Dose 71.5 ml/min Estimated GFR () 92.1 Estimated GFR (Non- 79.4 BUN/Creatinine Ratio 17.5 Random Glucose 117 mg/dl Calcium Level 8.6 mg/dl Urine Color DK YELLOW Urine Appearance CLEAR Urine pH 6.5 Urine Specific [place] 1.023 Urine Protein TRACE Urine Glucose (UA) NEG Urine Ketones TRACE Urine Occult Blood NEG Urine Nitrite NEG Urine Bilirubin NEG Urine Urobilinogen NEG Urine Leukocyte Esterase TRACE Urine WBC (Auto) 1-5 /hpf Urine RBC (Auto) 0-4 /hpf Urine Hyaline Casts (Auto) 1-5 /lpf Urine Epithelial Cells (Auto) >30 /lpf Urine Bacteria (Auto) NEG Urine Renal Epithelial Cells /lpf Assessment and Plan This patient is an 81-year-old male with a history of multisystem atrophy with Parkinson symptoms (MSAP), CAD status post RASHEL, hypertension, COPD, chronic iron deficiency anemia, history of lung cancer, lone atrial fibrillation, GERD, hyperlipidemia, BPH, RLS, chronic diastolic CHF, moderate aortic stenosis and mild aortic regurgitation, history of LBBB,, who presents to the ER with complaint of inability to walk. He has full strength throughout his legs and no weakness anywhere else, but just continued to not be able to walk in the ER. Attempts were made to place him at acute rehabilitation from the ER, but there were no beds available, which is why he was admitted. Ambulatory dysfunction/MSAP-Laboratory workup and CT of the head were all essentially normal and there were no signs of infection. He has full strength throughout his lower extremities, but cannot initiate gait and this is likely secondary to the Parkinson-like features of his disorder. This is likely related to his unfortunate chronic neuromuscular disease, Is placed under obs as no beds available at acute rehabilitation placement in the near future. -Neuro stated that would like to add Amantadine 100mg po bid. (This is noted below as well. -We'll trial an increase in his Sinemet CR to 50/200 3 times a day -Neurology consultation appreciated -PT/OT consultations and acute rehabilitation placement -Check iron studies given his chronic anemia, vitamin D level, TSH, and Lyme titer given the recent tick bite although may be too early for this to turn positive -Interestingly, it appears Dr. Carrera added on amantadine 100 mg by mouth twice a day at the last office visit in December, but the son-in-law that took the patient to the appointment was completely unaware of this and they have not started this medication-I discussed with Dr. Al and we will hold off on starting it at this time but could add it later Fever of unknown origen Vitals and WBCs are essentially normal. Patient has no other complaints. if patient gets symptoms or signs that point into source will investigate For now will monitor, if fever continues into monday, may look into other sources Blood cultures already obtained. CAD status post drug-eluting stent to RCA/hypertension/chronic diastolic CHF/ moderate /mild AI/dyslipidemia/lone atrial fibrillation/history of intermittent LBBB-all issues currently stable at this time, no evidence of volume overload, is in a normal sinus rhythm on EKG. -Continue home aspirin, statin COPD-no acute issues -Continue his Incruse Ellipta inhaler, however he does have intermittent urinary retention and this may need to be discontinued -Consider replacement with LABA or LABA/ICS instead Chronic iron deficiency anemia-hemoglobin at baseline here at 12.4, microcytic with elevated RDW -Ferritin does not appear to be too low. will monitor -BPH/history of urinary retention-did have to be catheterized in the ER for urine sample, patient denies any acute issues. On a previous admission with gait dysfunction, he was found to be retaining urine which may be related again this time -Bladder scan every shift and straight cath versus place Edmondson for PVR greater than 350 ML's -Continue his Flomax and Avodart or formulary replacement while here -Consider discontinuation of his LAMA inhaler as above History of severe orthostatic hypotension-could be related to his Parkinson symptoms versus side effect of medications, is noted in neurology notes in outpatient record. Orthostatic vitals on admission were normal -Watch for this especially given that we are increasing his Sinemet, remains on Flomax -Consider adding Florinef in future GERD-stable at this time -Continue Protonix Vitamin D12 and D deficiencies-checking vitamin D level given his weakness, he has not macrocytic on CBC, no need to check vitamin B12-it was normal one year ago -Continue by mouth vitamin D and B12 replacement Prophylaxis-heparin subcutaneously Disposition-PT/OT [facility] and may need acute rehabilitation placement in 1-2 days Below is INPUT FROM NEUROLOGIST 1. Gait disturbance, with inability to initiate getting up to a sitting or standing position or initiating gait, more acutely worse recently. Patient has a diagnosis of multiple systems atrophy, Parkinson's subtype, manifested by: - significant bradykinesia and cogwheel rigidity of the limbs - overt postural instability and inability to initiate sitting or standing. - significant orthostatic hypotension which frequently leads to lightheadedness and dizziness. He does not have vertigo or an inner ear dysfunction - mild postural and action tremor and no resting tremor. - [id number] cognitive impairment - blurry/double vision intermittently, stable He does not have ataxia of the limbs, significant apraxia, or other abnormal involuntary movements, such as myoclonus He has a generalized polyneuropathy of a mild nature which would add to gait disturbance as well. 2. Significant urinary retention, with benign prostatic hypertrophy, followed by Urology. 3. Moderate to severe bilateral hearing loss. 4. Vitamin-D deficiency 5. Fever of uncertain etiology I cannot exclude urinary tract infection in lieu of diagnosis #2 Consider Respiratory origin as well, given history of thoracotomy with lung cancer and COPD 6. Chronic iron deficiency anemia 7. Restless legs syndrome, stable Plan Unfortunately, multi systems atrophy is a progressive neurodegenerative condition which is generally non treatable, although there can be a mild response to carbidopa/levodopa and some . 1. Increase carbidopa/levodopa to 50/200 ER, twice daily 2. Given the autonomic nervous system dysfunction with MSA, it is difficult to increase carbidopa levodopa, or give other anti parkinsonian medication, as this could make orthostasis worse. 3. Initiate amantadine 100 mg p.o. b.i.d. This is a rather weak anti parkinsonian medication, but may help and certainly should not make his orthostasis worse. 4. Replace vitamin-D, recommend 5000 units D3 daily 5. This patient needs aggressive physical and occupational therapy treatment. 6. Consider rehabilitation hospital stay 7. If lightheadedness/orthostasis becomes worse, consider compression stockings , and other treatment measures I spoke with Dr. Colmenares regarding this case, including differential diagnoses and treatment options. Patient should follow up with Dr. Adkins as an outpatient Continued [facility] stay due to: home environment unsafe for pt Discharge planning: rehab hospital, fdc facility
[2017-02-20 07:28] VITALS: BP 145/85; PULSE 65; TEMP 36.6; O2SAT 95
[2017-02-20] MEDS: AVODART-ORDER AWAITING ACTION SCH ×3 (08:00→16:00)
[2017-02-20] MEDS: ATORVASTATIN 20 MG TAB PO SCH (08:37)
[2017-02-20] MEDS: ASPIRIN 81 MG ECTAB PO SCH (08:37)
[2017-02-20] MEDS: CARBIDOPA/LEVODOPA 50/200MG EXT REL TAB PO SCH ×2 (08:37→13:40)
[2017-02-20] MEDS: FERROUS FUMARATE CONTR REL CAP 65 MG CAPCR PO SCH (08:37)
[2017-02-20] MEDS: IBUPROFEN 200 MG TAB PO SCH (08:37)
[2017-02-20] MEDS: CYANOCOBALAMIN 500 MCG TAB (VIT B-12) PO SCH (08:38)
[2017-02-20] MEDS: LISINOPRIL 5 MG TAB PO SCH (08:38)
[2017-02-20] MEDS: HEPARIN SOD 5000 UNIT/0.5 ML CARP SQ SCH (08:39)
[2017-02-20] MEDS: POLYETHYLENE (MIRALAX) 17 GM PACK PO SCH (08:40)
[2017-02-20] MEDS ORDERED: AMANTADINE HCL 100 MG CAP PO SCH (09:00)
[2017-02-20] MEDS ORDERED: FINASTERIDE 5 MG TAB PO SCH (09:00)
[2017-02-20] MEDS ORDERED: CHOLECALCIFEROL 1000 INTER.UNIT TAB PO SCH (09:00)
[2017-02-20] MEDS: SENNA 8.6 MG TAB PO SCH (11:48)
[2017-02-20] MEDS: DOCUSATE SODIUM 100 MG CAP PO SCH (11:48)
[2017-02-20] MEDS ORDERED: CARB50TA3 PO (12:21)
[2017-02-20] MEDS ORDERED: FERROUS FUMARATE PO (12:21)
[2017-02-20] MEDS ORDERED: LSN5 PO (12:21)
[2017-02-20] MEDS ORDERED: SYM100 PO (12:21)
[2017-02-20] MEDS ORDERED: VTMD1000 PO (12:21)
--- NOTE | 2017-02-20 12:28 | Discharge Instructions ---
Discharge Instructions Date of Service Feb 20, 2017. Admission Reason for Admission: Ambulatory Dysfunction Discharge Discharge Diagnosis / Problem: Ambulatory dysfunction due to Multisystems Atrophy w/ Parkinson's features Discharge Goals Goal(s): Improve disease control, Diagnostic testing, Therapeutic intervention Activity Recommendations Activity Level: Assistance Required Therapies: Physical Therapy, Occupational Therapy Exercise/Sports Limitations: gradually increase as tolerated Shower/Bathe: no limitations . Additional Information Patient informed of condition: Yes Advance Directives: No DNR: No Level of Care: Acute Rehab Communicable Disease: No Prognosis: Stable Oxygen at (LPM): N/A Edmondson Catheter: No Instructions / Follow-Up Instructions / Follow-Up This patient is an 81-year-old male with a history of multisystem atrophy with Parkinson symptoms (MSAP), CAD status post RASHEL, hypertension, COPD, chronic iron deficiency anemia, history of lung cancer, lone atrial fibrillation, GERD, hyperlipidemia, BPH, RLS, chronic diastolic CHF, moderate aortic stenosis and mild aortic regurgitation, history of LBBB,, who presents to the ER with complaint of inability to walk. He resides with his daughter and son-in-law who noted that he was in the bathroom at 4:00 this morning and had no difficulty walking at that time. A couple of hours later in the morning, the patient was heard banging his cane asking for help as he was able to stand up, but could not initiate ambulation. He has full strength throughout his legs and no weakness anywhere else, but just continued to not be able to walk in the ER. Attempts were made to place him at acute rehabilitation from the ER, but there were no beds available. Ambulatory dysfunction/MSAP-Laboratory workup and CT of the head were all essentially normal and there were no signs of infection. He has full strength throughout his lower extremities, but cannot initiate gait and this is likely secondary to the Parkinson-like features of his disorder. This is likely related to his unfortunate chronic neuromuscular disease, and he was admitted for further evaluation and treatment, with the hopes of acute rehabilitation placement in the near future. I discussed the case with Dr. Al of neurology. There is no need for any further imaging at this time. -We increased in his Sinemet CR to 50/200mg 3 times a day and added Amantadine 100mg po bid -Neurology consultation appreciated and will need outpt follow up with Dr. Lucille within 1 month -PT/OT consultations and acute rehabilitation placement -he was a little more able to ambulate at time of discharge, but really needs aggressive rehab at this point - iron studies borderline low and given his chronic anemia, started Fe tabs -vitamin D level low at 26--> increased Vit D to 5000units once daily -TSH normal, and Lyme titer negative given the recent tick bite although may be too early for this to turn positive-consider repeating Lyme titer in 2 weeks CAD status post drug-eluting stent to RCA/hypertension/chronic diastolic CHF/ moderate /mild AI/dyslipidemia/lone atrial fibrillation/history of intermittent LBBB-all issues currently stable at this time, no evidence of volume overload, is in a normal sinus rhythm on EKG. -Continue home aspirin, statin COPD-no acute issues -Continue his Incruse Ellipta inhaler, however he does have intermittent urinary retention and this may need to be discontinued if urinary retention persists although resolved currently -Consider replacement with LABA or LABA/ICS instead Chronic iron deficiency anemia-hemoglobin at baseline here at 12.4, microcytic with elevated RDW - iron studies low as above -added iron supplementation -follow CBC in 1 month -BPH/history of urinary retention-did have to be catheterized in the ER for urine sample, patient denies any acute issues. On a previous admission with gait dysfunction, he was found to be retaining urine which may be related again this time -Bladder scan every shift and he did not have any further retention this admission -Continue his Flomax and Avodart -Consider discontinuation of his LAMA inhaler as above History of severe orthostatic hypotension-could be related to his Parkinson symptoms versus side effect of medications, is noted in neurology notes in outpatient record. Orthostatic vitals on admission were normal -Watch for this especially given that we are increasing his Sinemet, remains on Flomax -Consider adding Florinef in future GERD-stable at this time -Continue Protonix Vitamin B12 deficiency-he has not macrocytic on CBC, no need to check vitamin B12-it was normal one year ago -Continue B12 replacement To [facility] today Current Hospital Diet Patient's current hospital diet: AHA Diet (Heart Healthy) Discharge Diet Recommended Diet: AHA Diet (Heart Healthy) Procedures Procedures Performed: CT Head Pending Studies Studies pending at discharge: no Physician Orders On Transfer Special Precautions: Fall risk Vital Signs: Routine Weigh: Routine POLST Discussion: without POLST completion Medical Emergencies . Who to Call and When: Medical Emergencies: If at any time you feel your situation is an emergency, please call 911 immediately. . Non-Emergent Contact Non-Emergency issues call your: Primary Care Provider, Neurologist . . "Provider Documentation" section prepared by Shama Pires. . Core Measure Problem Core Measures: None
--- NOTE | 2017-02-20 12:36 | Discharge Summary ---
Discharge Summary Date of Service Feb 20, 2017. Discharge Summary Admission Date: Feb 18, 2017 at 12:03 Discharge Date: Feb 20, 2017 Discharge Disposition: Rehab ([facility]) Principal Diagnosis: Ambulatory dysfunction due to Multisystems atrophy w/ Parksinon's features Problems/Secondary Diagnoses: multisystem atrophy with Parkinson symptoms (MSAP) CAD status post RASHEL hypertension COPD chronic iron deficiency anemia history of lung cancer lone atrial fibrillation GERD hyperlipidemia BPH RLS chronic diastolic CHF moderate aortic stenosis mild aortic regurgitation history of LBBB Tick bite BPH/history of urinary retention History of severe orthostatic hypotension Vitamin B12 deficiency Vitamin D deficiency Immunizations: Tetanus Immunization Date: Sep 22, 2013 Procedures: CT Head-neg for acute change Consultations: Neurology Medication Reconciliation New Medications: Amantadine HCl (Amantadine HCl) 100 Mg Cap 100 MG PO BID for 30 Days, #60 CAP Carbidopa-Levodopa (Carbidopa/Levodopa Er) 1 Tab Tab 1 TAB PO TID for 30 Days, #90 TAB DOSE 50/200 mg tab of Sinemet CR Cholecalciferol (Vitamin D3) 1,000 Inter.unit Tab 5000 INTER.UNIT PO QAM for 30 Days Lisinopril (Lisinopril) 5 Mg Tab 5 MG PO QAM for 30 Days, #30 TAB [Ferrous Fumarate Contr Rel Cap] () 65 MG CAPCR 65 MG PO QAM for 30 Days Continued Medications: Acetaminophen (Tylenol) 500 Mg Tab 1000 MG PO Q4H PRN for Pain or Fever, TAB MAX 3GM COMBINED TOTAL APAP/ 24 HOURS USE PRN FOR MILD PAIN 1-3 OR FEVER >101F Aspirin (Aspirin 81) 81 Mg Tab 81 MG PO QAM Atorvastatin (Atorvastatin Calcium) 20 Mg Tab 20 MG PO DAILY for 30 Days, #30 TABS Cyanocobalamin (Vitamin B-12) 500 Mcg Tab 500 MCG PO DAILY, TAB Docusate Sodium (Colace) 100 Mg Cap 100 MG PO DAILY@1200 Dutasteride (Avodart) 0.5 Mg Cap 0.5 MG PO DAILY, CAP Ibuprofen Tab (Advil) 200 Mg Tab 200 MG PO QAM Pantoprazole (Protonix) 40 Mg Tab 40 MG PO DAILY@1630, #30 TAB Polyethylene Glycol 3350 (Miralax) 1 Pow Pow 17 GM PO DAILY@1200, #255 GM Senna (Senokot) 8.6 Mg Tab 8.6 MG PO DAILY@1200 Tamsulosin HCl (Tamsulosin HCl) 0.4 Mg Cap 0.4 MG PO HS Umeclidinium [place] (Incruse Ellipta) 62.5 Mcg/Inh Inh 1 INHA INH DAILY Discontinued Medications: Cholecalciferol (Vitamin D3) 1,000 Unit Tab 1 TAB PO QAM Levodopa/Carbidopa (Carbidopa/Levodopa Sr 25-100 mg) 1 Tab Tabcr 1 TAB PO TID Discharge Exam Pt feeling fine, ready for dc to rehab. Eating dinner, moving bowels, making urine, no retention. No other complaints Physical Exam: General Appearance: WD/WN, no apparent distress Head: normocephalic, atraumatic Eyes: normal inspection, PERRL, EOMI, sclerae normal ENT: + pertinent finding (hard of hearing, no facial droop) Neck: supple, no adenopathy, thyroid normal, no JVD, trachea midline Respiratory/Chest: lungs clear, normal breath sounds, no respiratory distress, no accessory muscle use Cardiovascular: regular rate, rhythm, no edema, no gallop, no JVD, normal peripheral pulses, + systolic murmur (3-6 systolic ejection murmur heard best at the right upper sternal border) Abdomen/GI: normal bowel sounds, non tender, soft, + pertinent finding (large midline laparotomy scar with reducible ventral incisional hernia) Back: normal inspection, normal range of motion, + pertinent finding (no tenderness to palpation over spinous processes) Extremities/Musculoskelatal: normal inspection (good muscle bulk throughout, increased tone throughout all muscle groups), no calf tenderness, normal capillary refill, no pedal edema, normal range of motion, non-tender Neurologic/Psych: mapping analyst II-XII nml as tested, no motor/sensory deficits (has 5 out of 5 strength throughout bilateral upper and lower extremities, sensation is intact to light touch throughout upper and lower extremities, DTRs 2+ in biceps, triceps, brachial radialis bilaterally, absent DTRs in the patella and Achilles), alert, normal mood/affect, oriented x 3 Review of Systems: Constitutional: No fever, No chills Eyes: No worsening of vision ENT: + hearing loss Respiratory: No shortness of breath Cardiovascular: No chest pain Abdomen: No pain, No nausea, No vomiting Musculoskeletal: No problem reported Genitourinary - Male: No problem reported Neurologic: + problem reported (difficulty walking) Psychiatric: No problem reported Endocrine: No problem reported Hematologic / Lymphatic: No problem reported Integumentary: No problem reported Hospital Course This patient is an 81-year-old male with a history of multisystem atrophy with Parkinson symptoms (MSAP), CAD status post RASHEL, hypertension, COPD, chronic iron deficiency anemia, history of lung cancer, lone atrial fibrillation, GERD, hyperlipidemia, BPH, RLS, chronic diastolic CHF, moderate aortic stenosis and mild aortic regurgitation, history of LBBB,, who presents to the ER with complaint of inability to walk. He resides with his daughter and son-in-law who noted that he was in the bathroom at 4:00 this morning and had no difficulty walking at that time. A couple of hours later in the morning, the patient was heard banging his cane asking for help as he was able to stand up, but could not initiate ambulation. He has full strength throughout his legs and no weakness anywhere else, but just continued to not be able to walk in the ER. Attempts were made to place him at acute rehabilitation from the ER, but there were no beds available. Ambulatory dysfunction/MSAP-Laboratory workup and CT of the head were all essentially normal and there were no signs of infection. He has full strength throughout his lower extremities, but cannot initiate gait and this is likely secondary to the Parkinson-like features of his disorder. This is likely related to his unfortunate chronic neuromuscular disease, and he was admitted for further evaluation and treatment, with the hopes of acute rehabilitation placement in the near future. I discussed the case with Dr. Al of neurology. There is no need for any further imaging at this time. -We increased in his Sinemet CR to 50/200mg 3 times a day and added Amantadine 100mg po bid -Neurology consultation appreciated and will need outpt follow up with Dr. Adkins within 1 month -PT/OT consultations and acute rehabilitation placement -he was a little more able to ambulate at time of discharge, but really needs aggressive rehab at this point - iron studies borderline low and given his chronic anemia, started Fe tabs -vitamin D level low at 26--> increased Vit D to 5000units once daily -TSH normal, and Lyme titer negative given the recent tick bite although may be too early for this to turn positive-consider repeating Lyme titer in 2 weeks CAD status post drug-eluting stent to RCA/hypertension/chronic diastolic CHF/ moderate /mild AI/dyslipidemia/lone atrial fibrillation/history of intermittent LBBB-all issues currently stable at this time, no evidence of volume overload, is in a normal sinus rhythm on EKG. -Continue home aspirin, statin COPD-no acute issues -Continue his Incruse Ellipta inhaler, however he does have intermittent urinary retention and this may need to be discontinued if urinary retention persists although resolved currently -Consider replacement with LABA or LABA/ICS instead Chronic iron deficiency anemia-hemoglobin at baseline here at 12.4, microcytic with elevated RDW - iron studies low as above -added iron supplementation -follow CBC in 1 month -BPH/history of urinary retention-did have to be catheterized in the ER for urine sample, patient denies any acute issues. On a previous admission with gait dysfunction, he was found to be retaining urine which may be related again this time -Bladder scan every shift and he did not have any further retention this admission -Continue his Flomax and Avodart -Consider discontinuation of his LAMA inhaler as above History of severe orthostatic hypotension-could be related to his Parkinson symptoms versus side effect of medications, is noted in neurology notes in outpatient record. Orthostatic vitals on admission were normal -Watch for this especially given that we are increasing his Sinemet, remains on Flomax -Consider adding Florinef in future GERD-stable at this time -Continue Protonix Vitamin B12 deficiency-he has not macrocytic on CBC, no need to check vitamin B12-it was normal one year ago -Continue B12 replacement To [facility] today Total Time Spent: Greater than 30 minutes This includes examination of the patient, discharge planning, medication reconciliation, and communication with other providers. Discharge Instructions Please refer to the electronic Patient Visit Report (Discharge Instructions) for additional information. Follow-Up Neurology within 1 month Additional Copies To RV. Garcia MD; Luiza Adkins D.O.
[2017-02-20 14:02] VITALS: BP 145/85; PULSE 65; TEMP 36.6; O2SAT 95
[2017-02-28] MEDS ORDERED: SULF800T23 PO (02:51)
[2017-03-03] MEDS ORDERED: FRRS300 PO (02:44)
[2017-03-03] MEDS ORDERED: CARB50TA3 PO (02:46)
== END 2017-02-20 16:30 ==
LOC: EDBD 07:13 → C.EDB 07:15 → C.MED 12:03 → ENRESERV 12:17
PROVIDERS: ADMIT Family Medicine; ATTEND Family Medicine
DX: G20 Parkinson's disease (principal); M62.59 Muscle wasting and atrophy, not elsewhere classified, multiple sites; I25.10 Atherosclerotic heart disease of native coronary artery without angina pectoris; I10 Essential (primary) hypertension; J44.9 Chronic obstructive pulmonary disease, unspecified; Z85.118 Personal history of other malignant neoplasm of bronchus and lung; Z87.891 Personal history of nicotine dependence; Z82.49 Family history of ischemic heart disease and other diseases of the circulatory system; Z79.01 Long term (current) use of anticoagulants; I35.0 Nonrheumatic aortic (valve) stenosis; Z79.899 Other long term (current) drug therapy

== ENCOUNTER → 2017-03-10 | Outpatient (CLI) | payer OTHER, BC ==
[~2017-03-10] MED LIST changes: -CARB25TA16 PO; +CARB50TA3 PO; -CHOL1000 PO; +CYAN500T PO; +DUTA0.5C PO; -DUTA1CAP3 PO; -ENOX40IN SQ; +FRRS300 PO; +LSN5 PO; -MOML PO; -MULT-845 PEG; +SULF800T23 PO; +VTMD1000 PO
[2017-03-10 09:10] LABS: BLOOD UREA NITROGEN 32 mg/dl (7-18); CARBON DIOXIDE 26 mmol/L (21-32); CHLORIDE 104 mmol/L (98-107); CREATININE 1.07 mg/dl (0.60-1.40); GLUCOSE 101 mg/dl (70-99); POTASSIUM 4.2 mmol/L (3.5-5.1); SODIUM 140 mmol/L (136-145)
== END ==
LOC: C.LABCC 08:52
PROVIDERS: ATTEND Internal Medicine
DX: J44.9 Chronic obstructive pulmonary disease, unspecified (principal); I25.10 Atherosclerotic heart disease of native coronary artery without angina pectoris; I50.9 Heart failure, unspecified

== ENCOUNTER 2017-04-05 06:19 | Emergency (ER) | payer OTHER, BC ==
[~2017-04-05] VITALS: Ht 175.3 cm; Wt 91.5 kg
[~2017-04-05 06:19] MED LIST changes: +PANT1TAB3 PO; -PANT1TAB48 PO
[2017-04-05 06:37] VITALS: TEMP 37; Ht 175.3 cm; Wt 91.5 kg
[2017-04-05] MEDS ORDERED: CHOL500015 PO (06:38)
[2017-04-05] MEDS ORDERED: ACET-1311 PO (06:41)
[2017-04-05] MEDS ORDERED: ASPCH81X PO (06:42)
[2017-04-05] MEDS ORDERED: AMLO2.5T PO (06:42)
[2017-04-05] MEDS ORDERED: HYDROCODONE/ACETAMOPHEN 5/325MG TAB PO STA (06:51)
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
[2017-04-05 07:44] LABS: BASO % 0.3 %; BASO ABS # 0.03 K/uL (0-0.2); COMPLETE YES; EOS % 3.9 %; HEMATOCRIT 38.5 % (42-52); IG% 0.6 %; LYMPH % 19.1 %; LYMPH ABS # 1.87 K/uL (1.2-3.4); MEAN CELL VOLUME 87.3 fL (80-100); MEAN CORPUSCULAR HEMOGLOBIN 28.3 pg (25-34); MEAN CORPUSCULAR HGB CONC 32.5 g/dl (32-36); MEAN PLATELET VOLUME 9.6 fL (7.4-10.4); MONO % 9.3 %; NEUT % 66.8 %; PLATELET COUNT 283 K/uL (130-400); RED BLOOD COUNT 4.41 M/uL (4.7-6.1); WHITE BLOOD COUNT 9.79 K/uL (4.8-10.8)
[2017-04-05 08:01] LABS: BUN/CREATININE RATIO 22.9 (10-20); CALCIUM 9.1 mg/dl (8.5-10.1); CREATININE 1.16 mg/dl (0.60-1.40); POTASSIUM 4.1 mmol/L (3.5-5.1)
--- NOTE | 2017-04-05 08:10 | DIAGNOSTIC IMAGING REPORT ---
L RIBS UNILATERAL WITH PA CHEST CLINICAL HISTORY: L post rib pain after fall 3 days ago COMPARISON STUDY: Chest 03/03/2017. FINDINGS: The lungs are clear. The heart remains mildly enlarged. No pleural effusions. No pneumothorax. No acute rib fractures. Old, healed right-sided rib fractures. Suture material within the right lung apex. IMPRESSION: No acute rib fractures. Stable mild cardiomegaly. Electronically signed by: Frantz Walters M.D. 04/05/2017 8:08 AM Dictated Date/Time: 04/05/2017 8:05 AM
[2017-04-05 08:30] LABS: URINE APPEARANCE CLEAR (CLEAR); URINE BILIRUBIN NEG (NEG); URINE COLOR YELLOW; URINE NITRITE NEG (NEG); URINE SPECIFIC GRAVITY 1.021 (1.000-1.030); UROBILINOGEN NEG (NEG); ZZUR CULT IF INDIC CLEAN CATCH NO
[2017-04-05] MEDS ORDERED: AMLODIPINE BESYLATE 5 MG TAB PO ONE (08:30)
[2017-04-05] MEDS ORDERED: TRAM-10 PO (08:34)
[2017-04-05 08:36] LABS: MANUAL MICROSCOPIC REQUIRED? NO; REVIEW REQ? NO
[2017-04-05] MEDS ORDERED: TRAMADOL HCL 50 MG TAB PO STA (11:22)
[2017-04-05 11:49] VITALS: BP 179/100; PULSE 88; O2SAT 98
== END 2017-04-05 12:11 ==
LOC: EDBD 06:19 → C.EDA 06:21
DX: S20.212A Contusion of left front wall of thorax, initial encounter (principal); W01.198A Fall on same level from slipping, tripping and stumbling with subsequent striking against other object, initial encounter; N40.0 Benign prostatic hyperplasia without lower urinary tract symptoms; I10 Essential (primary) hypertension; Z85.118 Personal history of other malignant neoplasm of bronchus and lung; Z87.891 Personal history of nicotine dependence; Z80.3 Family history of malignant neoplasm of breast; Z83.3 Family history of diabetes mellitus; Z82.49 Family history of ischemic heart disease and other diseases of the circulatory system; Z79.82 Long term (current) use of aspirin; Z79.899 Other long term (current) drug therapy

== ENCOUNTER → 2017-05-17 | Outpatient (CLI) | payer OTHER, BC ==
[~2017-05-17] MED LIST changes: -ACET-1256 PO; +ACET-1311 PO; +AMLO2.5T PO; +ASPCH81X PO; -ASPI-435 PO; +CHOL500015 PO; -CYAN500T PO; -DOCU-94 PO; -IBUP-103 PO; -LPT/20 PO; +LPT20 PO; -LSN5 PO; -POLY335019 PO; -SENN-61 PO; -SULF800T23 PO; +TRAM-10 PO; -VTMD1000 PO
[2017-05-17 10:14] LABS: HEMATOCRIT 38.1 % (42-52); HEMOGLOBIN 12.2 g/dL (14.0-18.0); MEAN CELL VOLUME 87.4 fL (80-100); MEAN PLATELET VOLUME 10.7 fL (7.4-10.4); PLATELET COUNT 275 K/uL (130-400); RED CELL DISTRIBUTION WIDTH CV 15.9 % (11.5-14.5); RED CELL DISTRIBUTION WIDTH SD 51.1 fL (36.4-46.3); WHITE BLOOD COUNT 7.38 K/uL (4.8-10.8)
[2017-05-17 10:57] LABS: BLOOD UREA NITROGEN 20 mg/dl (7-18); CALCIUM 9.4 mg/dl (8.5-10.1); CARBON DIOXIDE 27 mmol/L (21-32); CREATININE 1.02 mg/dl (0.60-1.40); GLUCOSE 89 mg/dl (70-99); POTASSIUM 3.9 mmol/L (3.5-5.1); SODIUM 139 mmol/L (136-145)
== END | disposition home or self-care (01) ==
LOC: C.LABSPEC 09:13
PROVIDERS: ATTEND Internal Medicine
DX: I25.10 Atherosclerotic heart disease of native coronary artery without angina pectoris (principal)

== ENCOUNTER → 2017-06-28 | Outpatient (CLI) | payer OTHER, BC ==
[~2017-06-28] MED LIST changes: +ATOR-22 PO; +DEXTSYP29 PO; +DOCU-94 PEG; +IPRA1AER2 INH; +IPRASOL4 INH; -LPT20 PO; +LVQ750 PO; +MELA1TAB5 PO; +PRD10 PO
[2017-06-28 08:57] LABS: HEMATOCRIT 36.8 % (42-52); HEMOGLOBIN 12.1 g/dL (14.0-18.0); MEAN CELL VOLUME 86.4 fL (80-100); MEAN CORPUSCULAR HEMOGLOBIN 28.4 pg (25-34); MEAN CORPUSCULAR HGB CONC 32.9 g/dl (32-36); MEAN PLATELET VOLUME 9.6 fL (7.4-10.4); PLATELET COUNT 263 K/uL (130-400); RED CELL DISTRIBUTION WIDTH SD 50.6 fL (36.4-46.3); WHITE BLOOD COUNT 9.47 K/uL (4.8-10.8)
[2017-06-28 09:07] LABS: BLOOD UREA NITROGEN 22 mg/dl (7-18); CALCIUM 8.7 mg/dl (8.5-10.1); CARBON DIOXIDE 29 mmol/L (21-32); CREATININE 1.03 mg/dl (0.60-1.40); GLUCOSE 91 mg/dl (70-99); POTASSIUM 3.8 mmol/L (3.5-5.1); SODIUM 137 mmol/L (136-145)
== END | disposition home or self-care (01) ==
LOC: C.LABSPEC 08:41
PROVIDERS: ATTEND Nurse Practitioner Adult Health
DX: D64.9 Anemia, unspecified (principal); I10 Essential (primary) hypertension

== ENCOUNTER 2017-06-30 08:40 | Emergency (ER) | payer OTHER, BC ==
[~2017-06-30] VITALS: Ht 177.8 cm; Wt 88.0 kg
[~2017-06-30 08:40] MED LIST changes: -DEXTSYP29 PO; -DOCU-94 PEG; -IPRA1AER2 INH; -MELA1TAB5 PO
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
[2017-06-30 09:11] VITALS: TEMP 37.1; O2SAT 96; Ht 177.8 cm; Wt 88.0 kg
--- NOTE | 2017-06-30 09:21 | DIAGNOSTIC IMAGING REPORT ---
SINGLE VIEW CHEST CLINICAL HISTORY: Change in mental status. FINDINGS: An AP, portable, upright chest radiograph is compared to study dated 06/13/2017. Correlation is made with chest CT dated 05/30/2015. The examination is degraded by portable technique and patient rotation. The heart is enlarged and there is atherosclerotic calcification of the thoracic aorta. The pulmonary vasculature is noncongested. Emphysema and chronic interstitial thickening are similar to previous. The lungs and pleural spaces are clear. No pneumothorax is seen. The skeletal structures are osteopenic. The bony thorax is grossly intact. IMPRESSION: Cardiomegaly and emphysema with no acute cardiopulmonary abnormality. Electronically signed by: Landen Phelan M.D. 06/30/2017 9:20 AM Dictated Date/Time: 06/30/2017 9:19 AM
[2017-06-30] MEDS ORDERED: MELA1TAB5 PO (09:34)
[2017-06-30] MEDS ORDERED: IPRA1AER2 INH (09:34)
[2017-06-30] MEDS ORDERED: DOCU-94 PEG (09:34)
[2017-06-30] MEDS ORDERED: DEXTSYP29 PO (09:34)
[2017-06-30 09:56] LABS: INFLUENZA B ANTIGEN Neg for Influ B (NEG)
--- NOTE | 2017-06-30 10:58 | DIAGNOSTIC IMAGING REPORT ---
CT SCAN OF THE BRAIN WITHOUT IV CONTRAST CLINICAL HISTORY: Change in mental status. COMPARISON STUDY: CT of the brain dated 06/14/2017. TECHNIQUE: Unenhanced axial CT scan of the brain is performed from the vertex to the skull base. A dose lowering technique was utilized adhering to the principles of ALARA. CT DOSE: 537.48 mGy.cm FINDINGS: Brain parenchyma: There are age-related involutional changes noting mild subcortical and periventricular microangiopathic change. There is no hemorrhage, mass effect, or evidence of acute territorial ischemia by CT criteria. Watkins-white matter is preserved. No extra-axial fluid collection is seen. Ventricles, sulci, cisterns: Prominent secondary to involutional change. Intracranial vasculature: There is atherosclerotic calcification of the cavernous carotid and vertebral arteries. Calvarium: Unremarkable. Sinuses and mastoids: The visualized paranasal sinuses are clear. There is a small left mastoid effusion. The right mastoid air cells are well pneumatized. Orbits: The bony orbits are grossly intact. There is a right ocular lens implant. IMPRESSION: There is no hemorrhage, mass effect, or evidence of acute territorial ischemia by CT criteria. Electronically signed by: Landen Phelan M.D. 06/30/2017 10:56 AM Dictated Date/Time: 06/30/2017 10:54 AM
[2017-06-30 11:52] VITALS: BP 145/80; PULSE 73; O2SAT 96
== END 2017-06-30 12:17 | disposition home or self-care (01) ==
LOC: EDBD 08:40 → C.EDB 08:41
DX: R41.82 Altered mental status, unspecified (principal); N40.0 Benign prostatic hyperplasia without lower urinary tract symptoms; J44.9 Chronic obstructive pulmonary disease, unspecified; H53.2 Diplopia; I11.9 Hypertensive heart disease without heart failure; R09.02 Hypoxemia; Z85.118 Personal history of other malignant neoplasm of bronchus and lung; I95.1 Orthostatic hypotension; Z80.9 Family history of malignant neoplasm, unspecified; Z83.3 Family history of diabetes mellitus; Z82.49 Family history of ischemic heart disease and other diseases of the circulatory system; Z87.891 Personal history of nicotine dependence; Z79.82 Long term (current) use of aspirin; Z79.899 Other long term (current) drug therapy

== ENCOUNTER 2017-07-07 12:01 | Emergency (ER) | payer OTHER, BC ==
[~2017-07-07 12:01] MED LIST changes: -ATOR-22 PO; +DEXTSYP29 PO; +DOCU-94 PEG; +IPRA1AER2 INH; -IPRASOL4 INH; -LVQ750 PO; +MELA1TAB5 PO; -PANT1TAB3 PO; -PRD10 PO; -TRAM-10 PO; -UMEC1INH INH
[2017-07-07 12:14] VITALS: TEMP 36.9; Ht 177.8 cm
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
[2017-07-07 13:09] LABS: BASO % 0.3 %; BASO ABS # 0.02 K/uL (0-0.2); EOS % 16.8 %; EOS ABS # 0.96 K/uL (0-0.5); HEMATOCRIT 36.3 % (42-52); HEMOGLOBIN 12.1 g/dL (14.0-18.0); IG# 0.02 K/uL (0.00-0.02); LYMPH % 22.4 %; LYMPH ABS # 1.28 K/uL (1.2-3.4); MEAN CELL VOLUME 85.8 fL (80-100); MEAN CORPUSCULAR HEMOGLOBIN 28.6 pg (25-34); MEAN CORPUSCULAR HGB CONC 33.3 g/dl (32-36); MONO % 10.3 %; MONO ABS # 0.59 K/uL (0.11-0.59); NEUT % 49.9 %; NEUT ABS # 2.85 K/uL (1.4-6.5); PLATELET COUNT 226 K/uL (130-400); RED CELL DISTRIBUTION WIDTH CV 15.6 % (11.5-14.5); RED CELL DISTRIBUTION WIDTH SD 48.9 fL (36.4-46.3); WHITE BLOOD COUNT 5.72 K/uL (4.8-10.8)
[2017-07-07] MEDS ORDERED: PANT1TAB3 PO (13:11)
[2017-07-07 13:23] LABS: ALBUMIN 3.5 gm/dl (3.4-5.0); ALT/SGPT 9 U/L (12-78); BLOOD UREA NITROGEN 19 mg/dl (7-18); CALCIUM 8.9 mg/dl (8.5-10.1); CARBON DIOXIDE 27 mmol/L (21-32); CREATININE 0.99 mg/dl (0.60-1.40); GLUCOSE 101 mg/dl (70-99); LIPASE 75 U/L (73-393); POTASSIUM 4.2 mmol/L (3.5-5.1); SODIUM 137 mmol/L (136-145)
[2017-07-07 13:34] LABS: ALKALINE PHOSPHATASE 101 U/L (45-117); AST/SGOT 12 U/L (15-37); TOTAL PROTEIN 7.4 gm/dl (6.4-8.2)
--- NOTE | 2017-07-07 13:38 | DIAGNOSTIC IMAGING REPORT ---
HEAD WITHOUT CONTRAST (CT) CLINICAL HISTORY: 81 years-old Male presenting with fall, ams. TECHNIQUE: Multidetector CT imaging of the head was performed without the use of intravenous contrast. IV contrast: None. A dose lowering technique was used consistent with the principles of ALARA (as low as reasonably achievable). COMPARISON: 06/30/2017. CT DOSE (mGy.cm): The estimated cumulative dose is 1715.61. FINDINGS: Commercial Title Examiner topogram: Unremarkable. Proportional ventricular and sulcal prominence, likely age-related parenchymal volume loss. Periventricular and subcortical white matter hypoattenuation, nonspecific but likely indicative of chronic small vessel ischemic change. No mass effect or midline shift. No hemorrhage or acute territorial infarct. No extra-axial fluid collection. Trace fluid in the left mastoid air cells. Calvarium intact. IMPRESSION: 1. Chronic small vessel ischemic change. No acute intracranial abnormality. Electronically signed by: Frank Marsh M.D. 07/07/2017 1:36 PM Dictated Date/Time: 07/07/2017 1:34 PM
--- NOTE | 2017-07-07 13:43 | DIAGNOSTIC IMAGING REPORT ---
CT OF THE CERVICAL SPINE WITHOUT CONTRAST CLINICAL HISTORY: Fall. COMPARISON STUDY: Neck CTA August 13, 2014. TECHNIQUE: Helical axial images of the cervical spine were obtained without IV contrast. Sagittal and coronal reconstructions were viewed. A dose lowering technique was utilized adhering to the principles of ALARA. FINDINGS: Straightening of the normal cervical lordosis. Craniocervical junction is intact. There is no acute cervical spine fracture. There is moderate multilevel degenerative disc disease and severe multilevel facet arthrosis. There is no prevertebral edema. Emphysema is noted within visualized portions of the lung apices. Postoperative findings within the right upper lung are partially imaged. IMPRESSION: No acute cervical spine fracture or subluxation. Electronically signed by: Jl Cummins M.D. 07/07/2017 1:42 PM Dictated Date/Time: 07/07/2017 1:37 PM
--- NOTE | 2017-07-07 13:51 | DIAGNOSTIC IMAGING REPORT ---
CHEST ONE VIEW PORTABLE CLINICAL HISTORY: 81 years-old Male presenting with fall, ams. TECHNIQUE: Portable upright AP view of the chest was obtained. COMPARISON: 06/30/2017. FINDINGS: Atherosclerosis of aortic arch. Cardiac silhouette mildly enlarged. Slight diffuse increased density of the left lung relative to the right lung. Diffuse coarsened lung markings. No large effusion or pneumothorax. Degenerative changes of the thoracic spine. Upper abdomen normal. IMPRESSION: 1. Mildly diffuse increased density of the left lung could be due to slight patient rotation and greater overlying soft tissue. No other focal infiltrate to suggest acute cardiopulmonary disease. Electronically signed by: Frank Marsh M.D. 07/07/2017 1:49 PM Dictated Date/Time: 07/07/2017 1:48 PM
--- NOTE | 2017-07-07 13:53 | DIAGNOSTIC IMAGING REPORT ---
PELVIS 1 OR 2 VIEW ROUTINE CLINICAL HISTORY: Fall. COMPARISON STUDY: CT of the abdomen and pelvis July 11, 2016. FINDINGS: The sacroiliac joints and symphysis pubis are intact. There is no acute fracture within the pelvis or hips. There is mild osteoarthritis of both hips. IMPRESSION: No acute fracture within the pelvis or hips. Electronically signed by: Jl Cummins M.D. 07/07/2017 1:51 PM Dictated Date/Time: 07/07/2017 1:50 PM
--- NOTE | 2017-07-07 14:27 | DIAGNOSTIC IMAGING REPORT ---
CT SCAN OF THE LUMBAR SPINE WITHOUT IV CONTRAST CLINICAL HISTORY: Fall. Low back pain. COMPARISON STUDY: Abdominal CT dated 07/11/2016. TECHNIQUE: CT scan of lumbar spine is performed from the lower thoracic spine to the sacrum. Images are reviewed in the axial, sagittal, and coronal planes. IV contrast was not administered for this examination. A dose lowering technique was utilized adhering to the principles of ALARA. CT DOSE: 1715.61 mGy.cm FINDINGS: The skeletal structures are osteopenic. There is no evidence of fracture or malalignment involving the lumbar spine. Vertebral body height is maintained throughout the lumbar spine. There is 4 mm of anterolisthesis at L4-L5. Alignment is otherwise preserved. There is straightening of the lumbar lordosis. The transverse and spinous processes appear intact. There is no evidence of spondylolysis. No lytic or blastic lesion is seen. Anterior osteophytes are seen throughout. Facet arthropathy is noted throughout the lower lumbar region. Moderate disc space narrowing is seen at L4-L5 and L5-S1. Mild disc space narrowing is seen at the remaining lumbar levels. Posterior disc-osteophyte complexes are seen at all lumbar levels. There is no CT evidence of large disc herniation. The visualized sacrum and bony pelvis appear intact. The paraspinous soft tissues are normal in appearance. There is moderate to advanced atherosclerotic calcification and mild ectasia of the abdominal aorta. IMPRESSION: 1. There is no evidence of fracture or malalignment involving the lumbar spine. 2. Osteopenia and multilevel spondylotic change as above. Dictated: 07/07/2017 1:52 PM Transcribed: 07/07/2017 2:27 PM [email or web address] Electronically signed by: Landen Phelan M.D. 07/07/2017 2:31 PM Dictated Date/Time: 07/07/2017 1:52 PM
[2017-07-07 14:36] LABS: INFLUENZA B ANTIGEN Neg for Influ B (NEG)
[2017-07-07] MEDS ORDERED: SODIUM CHLORIDE 0.9% 1000ML 1,000 ML IV STA (16:33)
[2017-07-07 19:30] VITALS: BP 138/83; PULSE 81; O2SAT 92
[2017-07-07] MEDS ORDERED: IPRASOL4 INH (22:50)
[2017-07-07] MEDS ORDERED: ATOR-22 PO (22:50)
== END 2017-07-07 19:30 ==
LOC: C.EDB 12:03
DX: R53.1 Weakness (principal); R26.89 Other abnormalities of gait and mobility; G20 Parkinson's disease; I95.1 Orthostatic hypotension; Z91.81 History of falling; J44.9 Chronic obstructive pulmonary disease, unspecified; I10 Essential (primary) hypertension; Z85.118 Personal history of other malignant neoplasm of bronchus and lung; Z87.891 Personal history of nicotine dependence; Z80.3 Family history of malignant neoplasm of breast; Z83.3 Family history of diabetes mellitus; Z82.49 Family history of ischemic heart disease and other diseases of the circulatory system; Z79.82 Long term (current) use of aspirin; Z79.899 Other long term (current) drug therapy; S60.413A Abrasion of left middle finger, initial encounter; X58.XXXA Exposure to other specified factors, initial encounter

== ENCOUNTER → 2017-08-11 | Outpatient (CLI) | payer OTHER, BC ==
[~2017-08-11] MED LIST changes: +ATOR-22 PO; +IPRASOL4 INH; -MELA1TAB5 PO; +PANT1TAB3 PO
== END | disposition home or self-care (01) ==
LOC: C.LABSPEC 12:40
PROVIDERS: ATTEND Internal Medicine
DX: N39.0 Urinary tract infection, site not specified (principal)